=== PATIENT | female | born 1940 | race Caucasian/White ===

== ENCOUNTER 2024-04-22 12:20 | Emergency (ER) | payer MEDICARE, SELFPAY ==
[2024-04-22] VITALS (45 sets, daily range): BP systolic 101–161; BP diastolic 56–105; PULSE 51–67; RESP 18–22; TEMP 36.3; O2SAT 90–98; BMI 32.0
--- OUTSIDE RECORDS SUMMARY | 2024-04-22 12:22 | XMS_ITS | Clinical Summary ---
Author Organization [employer] [facility] Address [place], [place] [address] Care Team Providers Care Rock Crushing Machine Operator Name Role Phone Cuco Sandoval MD Unavailable [phone] Curtis Liu Unavailable Unavailable Evy Renteria MD Unavailable [phone] Cindy Henry DO Primary Care Provider Allergies No known active allergies Medications acetaminophen (TYLENOL EXTRA STRGTH) 500 mg tablet Take 1 tablet by mouth every 6 hours if needed. Max acetaminophen dose: 4000mg in 24 hrs. 0 12/04/19 10 Active loratadine (CLARITIN) 10 mg tabletIndications :Other allergic rhinitis Take 1 tablet by mouth once daily. 0 04/11/19 16 Active ibuprofen (ADVIL; MOTRIN) 200 mg tablet Every 6 Hours as needed Active True Metrix Glucose Test Strip stripIndications: Controlled type 2 diabetes mellitus with complication, without long-term current use of insulin (HC) TEST ONE TIME DAILY 100 Each 4 01/30/20 21 Active TRUEplus Lancets 33 gauge miscIndications:C ontrolled type 2 diabetes mellitus with complication, without long-term current use of insulin (HC) TEST ONE TIME DAILY 100 Each 01/30/20 21 Active DULoxetine (CYMBALTA) 60 mg Delayed-release capsule Take 60 mg by mouth. 04/24/20 23 Active medication order composer vitamin d3 0 12/09/19 Active medication order composer vitamin b12 and vitamin d3 0 12/09/19 Active carvediloL (COREG) 12.5 mg tabletIndications :HTN (hypertension) Take 1 Tablet (12.5 mg) by mouth two times daily with meals. 180 Tablet 3 02/05/20 24 Active clopidogreL (PLAVIX) 75 mg tabletIndications :Transient cerebral ischemia, unspecified type Take 1 Tablet (75 mg) by mouth once daily in the morning. 90 Tablet 4 02/05/20 24 Active DULoxetine (CYMBALTA) 30 mg Delayed-release capsuleIndication s:Type 2 diabetes mellitus with diabetic neuropathy, without long-term current use of insulin (HC) Take 1 Capsule (30 mg) by mouth once daily. 90 Capsule 4 02/05/20 24 Active fluticasone (50 mcg per actuation) nasal solution (FLONASE)Indicati ons:Seasonal allergic rhinitis, unspecified trigger Inhale 2 Sprays in both nostrils once daily. 48 g 3 02/05/20 24 Active lisinopriL (PRINIVIL; ZESTRIL) 2.5 mg tabletIndications :HTN (hypertension),Ty pe 2 diabetes mellitus with diabetic neuropathy, without long-term current use of insulin (HC) Take 1 Tablet (2.5 mg) by mouth once daily. 90 Tablet 4 02/05/20 24 Active rosuvastatin (Crestor) 10 mg tabletIndications :Mixed hyperlipidemia Take 1 Tablet (10 mg) by mouth at bedtime. 90 Tablet 4 02/05/20 24 Active buPROPion (WELLBUTRIN SR) 150 mg Sustained-Release tabletIndications :Depression, major, single episode, mild (HC),Anxiety Take 1 Tablet (150 mg) by mouth two times daily. 180 Tablet 03/30/19 25 Active Walker - 4 wheelsIndications :Orthostatic hypotension,Loss of balance,Diabetic mononeuropathy associated with diabetes mellitus due to underlying condition (HC) For home use. Length of need: 99 seated walker. 1 Each 03/30/19 25 Active buPROPion 75 mg HCl tabletIndications :Depression, major, single episode, mild (HC) Take 1 Tablet (75 mg) by mouth two times daily. Based on updated ISMP guidelines, DO NOT crush or chew. 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 04/13/2021 Diabetic ulcer of toe of lef t foot associated with type 2 diabetes mellitus, limited to breakdown of skin 02/08/2018 Toe amputation status, left 02/08/2018 Onychomycosis 11/24/2017 Controlled type 2 diabetes m ellitus with complication, without long-term current use of insulin 11/20/2017 Onychomycosis 10/01/2016 Atherosclerosis of nulato artery of lower extrem ity 08/16/2016 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 Overview (01/25/2016): Right Severe obesity (BMI 35.0-39.9) with comorbidity 01/15/2016 Allergic rhinitis due to allergen 09/11/2014 TIA (transient ischemic attack) 08/21/2012 Headache(784.0) 08/21/2012 Speech abnormality 08/21/2012 Loss of balance 08/21/2012 ACP (advance care planning) 08/21/2012 Overview (08/21/2012): Patient has identified Health Care Agent(s): Add Health Care Agents: Health Care Agent(s): Primary Health Care Agent: Relationship: Phone: Secondary Health Care Agent: Relationship: Phone: Conservator: Relationship: Phone: Guardian: Relationship: Phone: Patient has Advance Care Plan Documents (Health Care Directive, POLST): Advance Care Plan Documents: Patient has identified Specific Treatment Preferences: Yes Specific Treatment Preferences: a.) Code Status: CPR/Attempt Resuscitation Osteopenia 08/20/2012 Orthostatic hypotension 01/28/2011 Paroxysmal supraventricular tachycardia 01/29/20 11 Overview (02/12/2011): S/P EPS with AVNRT ablation with Dr Swenson 02/12/2011 B12 deficiency 01/15/2011 Fall 01/11/2011 Syncope 01/11/2011 Hypotension 01/11/2011 Bradycardia 01/11/2011 HTN (hypertension) 04/24/2010 Mixed hyperlipidemia 04/24/2010 Diabetic ulcer of right midf oot associated with type 2 diabetes mellitus, with fat layer exposed Resolved Problems Problem Noted Date Diagnosed Date Resolved Date Osteomyelitis of toe of left foot 02/08/2018 12/08/2022 DM neuropathy, type II diabetes mellitus 04/24/2010 11/20/2017 Gallstone pancreatitis 04/08/201006/24 Chronic osteomyelitis of right foot 12/08/2022 Encounters Date Type Department Care Team Description 04/22/2024 Nurse Triage [facility] [address] [place] [address] Cindy Henry DO Dizziness 04/18/2024 Telephone [facility] [address] [place] [address] Cindy Henry DO Questions (medication questions) 03/30/2024 11:30 AM BENEFITS ASSISTANT Office Visit [address] [address] Cindy Henry DO Depression 03/30/2024 Travel 03/23/2024 3:00 PM BENEFITS ASSISTANT Office Visit [facility] [address] [place] [address] Chencho Quinones DPM Questions; Consult (Right [address] [place], [place] [id number]) 03/23/2024 Travel 02/19/2024 Telephone [facility] [address] [place] [address] Cindy Henry DO Questions (Result) 02/09/[address] [address] Cindy Henry DO Results 02/09/2024 Orders Only [address] [address] Cindy Henry DO <No scans attached> 02/05/2024 11:05 AM BENEFITS ASSISTANT Office Visit [facility] [address] [place] [address] Cindy Henry DO Medicare ANNUAL (subsequent) Visit (83 yr/); Toe Pain/problem (right foot toe- hammer toe- second toe ); Shortness Of Breath (has been going on about a month); Sinus Problem (allergies /); Urinary Problem (incontinence); Rectal Problem (occasionally/); Immunization/Injectio n (COVID-19 vaccine) 02/05/2024 Travel 01/27/2024 Refill [facility] [address] [place], [place] [id number] Cindy Henry DO Refill Request (Carvedilol) from Last 3 Months Immunizations Name Administration Dates Next Due COVID-19 VACCINE SPIKEVAX (M ODERNA 50MCG/0.5ML) 12YO+ PFS 02/05/2024 COVID-19 vaccine (BosidengBio NTech 30mcg/0.3mL) PF, MDV 12/19/2020,07/16/2020,06/25/2020 Influenza RIV4 (Age 18+ Year s) PRESERV FREE 01/19/2019 Influenza Virus, Unspecified 12/23/2011, 12/05/2010,01/04/2010,12/22,01/10/2003,01/11/2001 Influenza, High-dose Inactivated 017,01/02/2016,12/17/2015,12/20 Influenza, High-dose Quadriv alent Inactivated 12/09/2021 Influenza, IIV3 (Age 6-35 mos) 12/05/2010,2008 Influenza, IIV3 (Age >=3 years) 12/23/19 12,12/05/2010,01/04/2010,12/22,01/10/2003,01/11/2001 Influenza, Inactivated AIIV4 (Age 65+ Years) Preserv Free 12/08/2022,12/19/2020,11/28/2019 Influenza, Inactivated IIV3 (Age 65+ Years) Preserv Free 02/05/2024 Pneumococcal Poly,23-Valent (Pneumovax) 01/13/2011,06/28/2010,06/15/2003 Pneumococcal conj 13-Valent (Prevnar 13) 09/11/2014 RSV, Recombinant ADJ Reconst ituted (Arexvy 120MCG/0.5mL) 04/30/2023 Td (Age >=7 Years) 05/30/2002,08/14/1990 Tdap 08/20/2012 Zoster (Zostavax-ZVL, live) 04/12/2012 Family History Medical History Relation Name Comments Heart Disease Brother Heart Disease Father Cancer-breast Paternal Aunt Cancer-breast Sister Relation Name Status Comments Brother Father Mother Paternal Aunt Sister Social History Tobacco Use Types Packs/Day Years Used Date Smoking Tobacco: Former Cigarettes 1 30 1 04/04/1973 - 02/03/2004 Smokeless Tobacco: Never Tobacco Cessation:Counseling Given: Not Answered Alcohol Use Standard Drinks/Week Comments Not Currently 1.7 (1 standard drink = 0.6 oz p ure alcohol) 2 drinks a week PHQ-2 Answer Date Recorded PHQ-2 TOTAL SCORE 4 03/30/2024 Social Connections Answer Date Recorded Do you often feel lonely or isolated from those around you? 4 03/30/2024 Financial Resource Strain Answer Date R ecorded Difficulty of Paying Living Expenses 3 03/30/2024 Difficulty of Paying Living Expenses Not on file 03/30/2024 Food Insecurity Answer Date Recorded Do you worry your food will run out before you are able to buy more? 1 03/30/2024 Transportation Needs Answer Date Record ed Does lack of transportation keep you from medica l appointments? 1 03/30/2024 Does lack of transportation keep you from work, meetings or getting things that you need? 1 03/30/2024 Housing Stability Answer Date Recorded What is your housing situation today? 1 03/30/2024 Utilities Answer Date Recorded Do you have trouble paying f or utilities (for example, heat, electricity, water, phone)? 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 Not on file Not on file Not on file Obstetrics History Para Term AB IAB SAB Ectopic Multiple Livin g Live Births 2 2 2 2 Date Outcome GA Total Labor Labor/2nd/3rd Weight Sex Type Anes PTL Mine A1 A5 Name Clin Term Term Last Filed Vital Signs Vital Sign Reading Time Taken Comments Blood Pressure 122/66 03/30/2024 11:30 AM BENEFITS ASSISTANT Pulse 63 03/30/2024 11:30 AM BENEFITS ASSISTANT Temperature 36.5 C (97.7 F) 02/05/2024 11:24 AM BENEFITS ASSISTANT Respiratory Rate 16 06/12/2021 7:42 AM CDT Oxygen Saturation 97% 03/30/2024 11:30 AM BENEFITS ASSISTANT Inhaled Oxygen Concentration - - Weight 80.7 kg (178 lb) 03/30/2024 11:30 AM BENEFITS ASSISTANT Height 158.3 cm (5' 2.32) 02/05/2024 11:[address] Body Mass Index 32.22 02/05/2024 11:24 AM BENEFITS ASSISTANT Plan of Treatment Upcoming Encounters Date Type Department Care Team (Late st Contact Info) Description 05/04/2024 1:00 PM BENEFITS ASSISTANT Office Visit [facility] [address] [place] [address] Cindy Henry DO [address] [place] [address] Health Maintenance Due Date Last Done Comments Zoster (shingles) series for age 50+ (2 of 3) 06/07/2012 04/12/2012 Tetanus booster 08/20/2022 08/20/2012, 05/14, 08/14/1990 BMI (ht and wt on same day) for age 18+ 02/04/2025 02/05/2024, 04/10/2021, 11/02/2020, Additional history exists Medicare Wellness for age 65+ 02/05/2025, 12/08/2022, 04/10/2021, Additional history exists Depression screening for age 12+ 03/30/2025 03/30/2024, 03/23/2024, 02/09/2024, Additional history exists Tdap Completed 08/20/2012 DEXA/DXA scan for age 65+ Completed 2012, 07/12/2010, 06/28/2010 (Postponed) Pneumococcal series for age 50+ Completed 09/11/2014, 01/13/2011, 06/28/2010, Additional history exists RSV vaccine for adults or Completed 04/30/2023 COVID-19 vaccine series Completed 11, 04/30/2023, 12/09/2021, Additional history exists Influenza for age 65+ Completed 02/05/2024 , 12/08/2022, 12/09/2021, Additional history exists Procedures Procedure Name Priority Date/Time Associated Diagnosis Comments LIPID PANEL W REFLEX MEASURED LDL Routine 02/05/2024 12:26 PM BENEFITS ASSISTANT HTN (hypertension) Type 2 diabetes mellitus with diabetic neuropathy, without long-term current use of insulin (HC) Mixed hyperlipidemia BASIC METABOLIC PANEL Routine 02/05/2024 12:26 PM BENEFITS ASSISTANT HTN (hypertension) Type 2 diabetes mellitus with diabetic neuropathy, without long-term current use of insulin (HC) URINE ALBUMIN TO CREATININE RATIO, RANDOM Routine 02/05/2024 12:26 PM BENEFITS ASSISTANT Type 2 diabetes mellitus with diabetic neuropathy, without long-term current use of insulin (HC) VITAMIN B12 Routine 02/05/2024 12:26 PM BENEFITS ASSISTANT B12 deficiency URINE CULTURE Routine 02/05/2024 12:26 PM BENEFITS ASSISTANT Urine frequency URINALYSIS MICROSCOPIC Routine 02/05/2024 12:26 PM BENEFITS ASSISTANT Urine frequency URINALYSIS MACROSCOPIC - [facility] ONLY POC DIP ([facility]) Routine 02/05/2024 12:25 PM BENEFITS ASSISTANT Urine frequency HEMOGLOBIN A1C MONITORING (POCT) Routine 02/05/2024 12:25 PM BENEFITS ASSISTANT Type 2 diabetes mellitus with diabetic neuropathy, without long-term current use of insulin (HC) XR DXA BONE DENSITY 2 SITES AXIAL Routine 08/24/2012 2:20 PM CDT Osteopenia from Last 3 Months or Most Recently Relevant to Health Maintenance Results * (ABNORMAL) LIPID PANEL W REFLEX MEASURED LDL (02/05/2024 12:26 PM BENEFITS ASSISTANT) CHOLESTEROL, TOTAL 116 <200 mg/dL [facility] HDL CHOLESTEROL 47(L) > OR = 50 mg/dL [facility] TRIGLYCERIDES 115 <150 mg/dL [facility] LDL-CHOLESTEROL 49 mg/dL (calc) [facility] Comment: Reference range: <100 Desirable range <100 mg/dL for primary prevention; <70 mg/dL for patients with CHD or diabetic patients with > or = 2 CHD risk factors. LDL-C is now calculated using the Katty calculation, which is a validated novel method providing better accuracy than the Friedewald equation in the estimation of LDL-C. Rinku BEACH et al. AHMET. 2013;310(19): 4586-7076 (http://education.Syapse/faq/OUT381) CHOL/HDLC RATIO 2.5 <5.0 (calc) [facility] NON HDL CHOLESTEROL 69 <130 mg/dL (calc) [facility] Comment: For patients with diabetes plus 1 major ASCVD risk factor, treating to a non-HDL-C goal of <100 mg/dL (LDL-C of <70 mg/dL) is considered a therapeutic option. Blood BLOOD SPECIMEN / Unknown 02/05/2024 12:26 PM BENEFITS ASSISTANT 02/05/2024 12:26 PM BENEFITS ASSISTANT Cindy Henry DO CHEMISTRY Final Resul t [facility] [address] [place] [address], [facility] [address] [place] [address] * (ABNORMAL) URINALYSIS MICROSCOPIC (02/05/2024 12:26 PM BENEFITS ASSISTANT) WBC UA > OR = 60(A) < OR = 5 /HPF [facility] RBC UA 3-10(A) < OR = 2 /HPF [facility] SQUAMOUS EPITHELIAL CELLS UA 0-5 < OR = 5 /HPF [facility] BACTERIA UA MANY(A) NONE SEEN /HPF [facility] HYALINE CAST NONE SEEN NONE SEEN /LPF [facility] YEAST UA FEW(A) NONE SEEN /HPF [facility] NOTE UA [facility] Comment: This urine was analyzed for the presence of WBC, RBC, bacteria, casts, and other formed elements. Only those elements seen were reported. Urine URINE SPECIMEN / Unknown 02/05/2024 12:26 PM BENEFITS ASSISTANT 02/05/2024 12:26 PM BENEFITS ASSISTANT Cindy Cano Detert DO URINE Final Resul t [facility] [address] [place] [address], [facility] [address] [place] [address] * (ABNORMAL) URINE CULTURE (02/05/2024 12:26 PM BENEFITS ASSISTANT) CULTURE, URINE, ROUTINE SEE NOTE(A) [facility] Comment: CULTURE, URINE, ROUTINE Micro Number: [id number] Test Status: Final Specimen Source: Urine Specimen Quality: Adequate Result: Greater than 100,000 CFU/mL of Klebsiella pneumoniae K.pneumoniae INT JATIN AMOX/CLAVULANATE S <=2 AMP/SULBACTAM S <=2 CEFAZOLIN NR <=4 2 CEFEPIME S <=0.12 CEFTAZIDIME S <=1 CEFTRIAXONE S <=0.25 CIPROFLOXACIN S <=0.06 GENTAMICIN S <=1 IMIPENEM S <=0.25 LEVOFLOXACIN S <=0.12 MEROPENEM S <=0.25 NITROFURANTOIN S <=16 PIP/TAZOBACTAM S <=4 TRIMETHOPRIM/SULFA S <=20 S = Susceptible I = Intermediate R = Resistant NS = Not susceptible SDD = Susceptible Dose Dependent * = Not Tested NR = Not Reported NN = See Therapy Comments THERAPY COMMENTS Note 1: For infections other than uncomplicated UTI caused by E. coli, K. pneumoniae or P. mirabilis: Cefazolin is resistant if JATIN > or = 8 mcg/mL. (Distinguishing susceptible versus intermediate for isolates with JATIN < or = 4 mcg/mL requires additional testing.) Note 2: For uncomplicated UTI caused by E. coli, K. pneumoniae or P. mirabilis: Cefazolin is susceptible if JATIN <32 mcg/mL and predicts susceptible to the oral agents cefaclor, cefdinir, cefpodoxime, cefprozil, cefuroxime, cephalexin and loracarbef. Urine URINE SPECIMEN / Unknown 02/05/2024 12:26 PM BENEFITS ASSISTANT 02/05/2024 12:26 PM BENEFITS ASSISTANT Cindy Henry DO MICROBIOLOGY Final Resul t Performing Organization Address [facility] Co de Phone Number [facility] [id number] [place] [address], [employer] [address] * (ABNORMAL) URINE ALBUMIN TO CREATININE RATIO, RANDOM (02/05/2024 12:26 PM BENEFITS ASSISTANT) CREATININE, RANDOM URINE 127 20 - 275 mg/dL [facility] ALBUMIN, URINE 13.0 See Note: mg/dL [facility] Comment: Reference Range: Reference Range Not established ALBUMIN/CREATININE RATIO, RANDOM URINE 102(H) <30 mg/g creat [facility] Comment: The ADA defines abnormalities in albumin excretion as follows: Albuminuria Category Result (mg/g creatinine) Normal to Mildly increased <30 Moderately increased 30-299 Severely increased > OR = 300 The ADA recommends that at least two of three specimens collected within a 3-6 month period be abnormal before considering a patient to be within a diagnostic category. Urine URINE SPECIMEN / Unknown 02/05/2024 12:26 PM BENEFITS ASSISTANT 02/05/2024 12:26 PM BENEFITS ASSISTANT Cindy Cano Detert DO URINE Final Resul t Performing Organization Address [facility]/ZIP Co de Phone Number [facility] [address] [address], [facility] [[email or web address]] [facility] [address] [place] [address] * VITAMIN B12 (02/05/2024 12:26 PM BENEFITS ASSISTANT) [facility] VITAMIN B12 331 200 - 1,100 pg/mL [facility] Comment: Please Note: Although the reference range for vitamin B12 is 200-1100 pg/mL, it has been reported that between 5 and 10% of patients with values between 200 and 400 pg/mL may experience neuropsychiatric and hematologic abnormalities due to occult B12 deficiency; less than 1% of patients with values above 400 pg/mL will have symptoms. Blood BLOOD SPECIMEN / Unknown 02/05/2024 12:26 PM BENEFITS ASSISTANT 02/05/2024 12:26 PM BENEFITS ASSISTANT us Cindy Henry DO CHEMISTRY Final Resul t [facility] [address] [place] [phone], [facility] [[email or web address]] [facility] [address] [place] [phone] * (ABNORMAL) BASIC METABOLIC PANEL (02/05/2024 12:26 PM BENEFITS ASSISTANT) [facility] GLUCOSE 96 65 - 99 mg/dL [facility] Comment: Fasting reference interval UREA NITROGEN (BUN) 23 7 - 25 mg/dL [facility] CREATININE 0.96(H) 0.60 - 0.95 mg/dL [facility] EGFR 59(L) > OR = 60 mL/min/1.7 3m2 [facility] BUN/CREATININE RATIO 24(H) 6 - 22 (calc) [facility] SODIUM 142 135 - 146 mmol/L [facility] POTASSIUM 4.2 3.5 - 5.3 mmol/L [facility] CHLORIDE 107 98 - 110 mmol/L [facility] CARBON DIOXIDE 25 20 - 32 mmol/L [facility] ELECTROLYTE BALANCE 10 7 - 17 mmol/L (calc) [facility] CALCIUM 9.1 8.6 - 10.4 mg/dL [facility] Blood BLOOD SPECIMEN / Unknown 02/05/2024 12:26 PM BENEFITS ASSISTANT 02/05/2024 12:26 PM BENEFITS ASSISTANT Cindy Henry DO CHEMISTRY Final Resul t Performing Organization Address City/[facility]/ZIP Co de Phone Number [facility] [address] [place] [address], [place] [phone] [facility] [address] [place] [address] * (ABNORMAL) POCT Urinalysis Dipstick Only (02/05/2024 12:25 PM BENEFITS ASSISTANT) PH 5.5 5.0 - 8.0 [facility] SPECIFIC GRAVITY 1.025 1.001 - 1.035 [facility] GLUCOSE NEGATIVE NEGATIVE [facility] BILIRUBIN NEGATIVE NEGATIVE [facility] KETONES NEGATIVE NEGATIVE [facility] OCCULT BLOOD TRACE(A) NEGATIVE [facility] PROTEIN 1+(A) NEGATIVE [facility] NITRITE POSITIVE(A) NEGATIVE [facility] LEUKOCYTE ESTERASE 2+(A) NEGATIVE [facility] Urine URINE SPECIMEN / Unknown 02/05/2024 12:25 PM BENEFITS ASSISTANT 02/05/2024 12:25 PM BENEFITS ASSISTANT us Cindy Henry DO URINE Final Resul t [facility] [address] [place] [address], [place] [phone] [facility] [address] [place] [address] * (ABNORMAL) HEMOGLOBIN A1C MONITORING POCT (02/05/2024 12:25 PM BENEFITS ASSISTANT) POC HEMOGLOBIN A1C 6.4(H) <6.0 % OF TOTAL HGB [facility] Comment: Any point of care results exhibiting inconsistency with the patient's clinical status should be repeated using a different testing method. Blood BLOOD SPECIMEN / Unknown 02/05/2024 12:25 PM BENEFITS ASSISTANT 02/05/2024 12:25 PM BENEFITS ASSISTANT Cindy Cano Detert DO CHEMISTRY Final Resul t [facility] [address] [place] [address], [facility] [address] [place] [address] * XR DXA BONE DENSITY 2 SITES (08/24/2012 2:20 PM CDT) Anatomical Region Laterality Modality Spine, HIPS, HIPL, HIPR Other Narrative 08/25/2012 11:58 AM CDT The result for this exam is either scanned and attached to this order or are included in the ordering provider's NOTES from the patient's Office Visit or Surgical procedure from this date. Procedure Note Kesha Friend - 08/25/2012 The result for this exam is either scanned and attached to this order orare included in the ordering provider's NOTES from the patient's OfficeVisit or Surgical procedure from this date. Cindy Grimest DO DEXA Final Resul t from Last 3 Months or Most Recently Relevant to Health Maintenance Insurance [facility] AET[employer] MR Advance Directives * Full Code (Latest Code Status on File) Date Activated Date Inactivated Comments 06/11/2021 2:24 PM 06/12/2021 12:12 PM Question Answer Comments Code Status Discussion: Reviewed Preferences * Full Code Date Activated Date Inactivated Comments 05/30/2021 11:45 AM 05/30/2021 5:25 PM Question Answer Comments Code Status Discussion: Reviewed Preferences * Full Code Date Activated Date Inactivated Comments 11/05/2020 7:00 AM 11/05/2020 1:59 PM Question Answer Comments Code Status Discussion: Discussed * Full Code Date Activated Date Inactivated Comments 08/21/2012 3:49 PM 08/22/2012 5:41 PM * Full Code Date Activated Date Inactivated Comments 02/11/2011 6:02 AM 02/12/2011 2:24 PM Care Teams Rock Crushing Machine Operator Relationship Specialty Start Date End Date Cindy Henry DO [facility] [place] [address] PCP - General Family Practice 12/08/22 Cuco Sandoval MD [address] [place] [address] Oncology Hematology and Oncology 08/20/12 Curtis Liu Ophthalmology [place] [employer] 08/20/12 Evy Renteria MD Ophthalmology Ophthalmology Surgery 08/20/12
--- NOTE | 2024-04-22 13:49 | CRLHL7_ITS ---
For Patients: As a result of the Century Cures Act, medical imaging exams and procedure reports are released immediately into your electronic medical record. You may view this report before your referring provider. If you have questions, please contact your health care provider. INDICATION: Ataxia. TECHNIQUE: Multisequence multiplanar MRI of the brain without the use of intravenous contrast. COMPARISON: Correlated with CT head dated 04/10/2020. FINDINGS: Punctate hyperintense foci on diffusion-weighted imaging in the right occipital lobe (series 5, image 34) and left frontal lobe (series 5 image 45) without convincing correlate on the ADC map. Scattered as well as confluent T2 prolongation within white matter both cerebral hemispheres. Focus of abnormal susceptibility artifact. Moderate diffuse parenchymal volume loss with ex vacuo prominence of the supratentorial ventricles. Flow voids of the larger intracranial arteries are preserved. Normal calvarial bone marrow signal intensity. Evidence prior cataract surgery. The paranasal sinuses and mastoid air cells are predominantly clear. IMPRESSION: 1. Two punctate hyperintense foci on diffusion-weighted imaging in the right occipital lobe and left frontal lobe consistent with subacute infarcts. Distribution raises concern for embolic etiology. 2. No evidence of recent or remote intracranial hemorrhage. 3. Moderate diffuse parenchymal volume loss and chronic small vessel ischemic changes. Dictated by Bobby Sow MD @ 04/22/2024 4:26:01 PM (Electronically Signed)
--- NOTE | 2024-04-22 13:50 | ED_ITS ---
HPI - Dizziness General Chief Complaint: Dizziness/Vertigo Stated Complaint: dizzy spells, fell last week, hit head Time Seen by Provider: 04/22/24 12:55 History of Present Illness HPI Narrative: This 83-year-old female comes in with family members and reports feeling off balance over the past couple weeks. She fell about a week ago and hit her head and states that she had a good lump on her head. She does not report any headache. She states that she does not have any feelings of lightheadedness or vertigo symptoms. She does not report any weakness. She did start a new medication recently, bupropion. Related Data Home Medications ?Medication ?Instructions ?Recorded ?Confirmed bupropion HCl 150 mg tablet,12 hr mg PO 04/22/24 sustained-release clopidogrel .ROUTE 04/22/24 lisinopril .ROUTE 04/22/24 Allergies Allergy/AdvReac Type Severity Reaction Status Date / Time No Known Drug Allergies Allergy Verified 04/22/24 12:46 Review of Systems Status of ROS: Reports: 10 or more systems reviewed and unremarkable except as noted in History and below Narrative: Constitutional: No fevers, no weight gain or loss. Eyes: No discharge. No vision changes. HENT: No congestion, no sore throat, no ear pain. Cardiovascular: No chest pain, no palpitations. Respiratory: No shortness of breath, no wheezes, no cough. Gastrointestinal: No abdominal pain, no vomiting, no diarrhea. Genitourinary: No dysuria, no hematuria. Musculoskeletal: Normal range of motion. Skin: No rashes, no pruritis. Neurological: No weakness, sensory change, speech change. She is off balance and has fallen. Endo/Heme/Allergies: No bruising or bleeding. No polydipsia. Pysch: no suicidality, no anxiety, no insomnia. All other systems reviewed and are negative. PFSH PFSH Social History Smoking Status: Former smoker What tobacco products do you use: cigarettes Smoking quit date/years: >15 years ago Do you use any of these nicotine containing products: None Second hand tobacco smoke exposure: No How often do you have a drink containing alcohol: 4 or more times a week How many standard drinks containing alcohol do you have on a typical day: 1 or 2 How often do you have six or more drinks on one occasion: Never AUDIT-C Alcohol total score: 4 Non-prescribed substance use: denies use service: No Exam Narrative: Exam Narrative: Constitutional: Well-developed, well-nourished, no acute distress. HEENT: Normocephalic, atraumatic. Neck: Normal range of motion. Nontender. Supple. Heart: Regular. No murmurs. Normal rate. Intact distal pulses. Lungs: Clear to auscultation. No chest discomfort. No wheezes, rhonchi, or rales. Abdomen: Normal bowel sounds. Nontender. No rebound tenderness. Genitalia: Deferred. Back: No midline tenderness. Normal range of motion. Extremities: Normal range of motion. No injury. Skin: Intact. No rash. Warm. No erythema or pallor. Neurologic: No altered sensation. No weakness. Alert and oriented. No facial asymmetry. Tongue is midline. [id number] is normal. No pronator drift. Medical Doctor Nuclear Medicine strength is equal bilaterally. Able to raise each leg from the bed. Psychiatric: No suicidality. No anxiety or depression. No insomnia. Nursing notes and vitals signs are reviewed. Const: Vital Signs, click to edit/add: Vital Signs - 24 hr 04/22/24 12:49 04/22/24 13:15 04/22/24 13:30 Temperature 97.4 F L Pulse Rate Pulse Rate [Pulse Oximeter] 67 55 L 58 L Respiratory Rate 18 22 22 Blood Pressure Blood Pressure [Le ft Upper Arm] 112/78 101/67 Pulse Oximetry 98 93 94 Oxygen Delivery Me thod Room Air Room Air Room Air 04/22/24 13:34 04/22/24 13:45 04/22/24 13:47 Temperature Pulse Rate 54 L 55 L 56 L Pulse Rate [Pulse Oximeter] Respiratory Rate 22 Blood Pressure 119/79 Blood Pressure [Le ft Upper Arm] Pulse Oximetry 94 96 95 Oxygen Delivery Me thod Room Air 04/22/24 13:47 04/22/24 13:52 04/22/24 13:52 Temperature Pulse Rate 56 L 54 L 54 L Pulse Rate [Pulse Oximeter] Respiratory Rate Blood Pressure 119/79 125/56 L 125/56 L Blood Pressure [Le ft Upper Arm] Pulse Oximetry 95 95 95 Oxygen Delivery Me thod 04/22/24 14:04 04/22/24 14:05 04/22/24 14:07 Temperature Pulse Rate 56 L 57 L 55 L Pulse Rate [Pulse Oximeter] Respiratory Rate Blood Pressure 128/65 123/63 Blood Pressure [Le ft Upper Arm] Pulse Oximetry 93 95 94 Oxygen Delivery Me thod 04/22/24 14:11 04/22/24 14:15 04/22/24 14:16 Temperature Pulse Rate 56 L 56 L 55 L Pulse Rate [Pulse Oximeter] Respiratory Rate Blood Pressure 133/62 137/62 Blood Pressure [Le ft Upper Arm] Pulse Oximetry 91 91 92 Oxygen Delivery Me thod 04/22/24 14:21 04/22/24 14:21 04/22/24 14:26 Temperature Pulse Rate 51 L 51 L 56 L Pulse Rate [Pulse Oximeter] Respiratory Rate Blood Pressure 144/66 H 144/66 H 142/63 H Blood Pressure [Le ft Upper Arm] Pulse Oximetry 92 92 90 Oxygen Delivery Me thod 04/22/24 14:30 04/22/24 14:32 04/22/24 14:32 Temperature Pulse Rate 56 L 56 L 56 L Pulse Rate [Pulse Oximeter] Respiratory Rate Blood Pressure 152/73 H 152/73 H Blood Pressure [Le ft Upper Arm] Pulse Oximetry 92 93 93 Oxygen Delivery Me thod Course Vital Signs Vital signs: Initial Vital Signs Temperature 97.4 F L 04/22/24 12:49 Temperature Source Temporal Artery Scan 04/22/24 12:49 Pulse Rate 67 04/22/24 12:49 Respiratory Rate 18 04/22/24 12:49 Pulse Oximetry 98 04/22/24 12:49 Oxygen Delivery Method Room Air 04/22/24 12:49 Vital Signs Temperature 97.4 F L 04/22/24 12:49 Pulse Rate 67 04/22/24 12:49 Respiratory Rate 18 04/22/24 12:49 Pulse Oximetry 98 04/22/24 12:49 Oxygen Delivery Method Room Air 04/22/24 12:49 Temperature 97.4 F L 04/22/24 12:49 Pulse Rate 56 L 04/22/24 14:32 Respiratory Rate 22 04/22/24 13:47 Blood Pressure 152/73 H 04/22/24 14:32 Pulse Oximetry 93 04/22/24 14:32 Oxygen Delivery Method Room Air 04/22/24 13:47 MDM - Dizziness MDM Narrative Medical decision making narrative: This patient has worsening ataxia over the past couple weeks and did fall about a week ago. Her neurologic exam is normal but when she is up to ambulate she is unsteady. I did obtain labs which returned with normal results. An MRI of the head is also obtained and shows 2 punctate lesions that may represent a subacute or chronic small clot. This may account for her symptoms. Otherwise imaging and labs are reassuring. She does have 2 different walkers that she can use. She states that she does not typically use these at home because her house is small and she has thing she can hold onto. However she did fall at home last week. I did recommend that she uses a walker for ambulating because her ataxia is not likely to improve. Lab Data Labs: Lab Results 04/22/24 Range/Units 13:15 WBC 6.08 (4.50-11.00) K/uL RBC 5.07 (4.00-5.20) m/uL Hgb 14.6 (12.0-16.0) gm/dL Hct 45.1 (33.0-51.0) % MCV 89 (80-100) fL MCH 29 (26-34) pg MCHC 32 (32-36) gm/dL RDW Coeff of Leonardo 13.2 (11.5-15.5) % Plt Count 176 (140-440) K/uL Neut % (Auto) 68.6 (42.0-72.0) % Lymph % (Auto) 20.9 (20-44) % Angelina % (Auto) 8.4 (0.0-11.0) % Eos % (Auto) 1.6 (0.0-7.0) % Baso % (Auto) 0.3 (0.0-3.0) % Neut # (Auto) 4.17 (1.7-7.0) K/uL Lymph # (Auto) 1.27 (0.90-2.90) K/uL Angelina # (Auto) 0.50 (0.00-0.90) K/UL Eos # (Auto) 0.10 (0.00-0.50) K/uL Baso # (Auto) 0.02 (0.00-0.30) K/uL Abs Immat Gran (auto) 0.01 (0.00-0.30) K/uL Imm/Tot Granulo (auto) 0.2 % Sodium 138 (135-149) mmol/L Potassium 3.9 (3.6-5.1) mmol/L Chloride 107 (96-114) mmol/L Carbon Dioxide 21 (20-32) mmol/L Anion Gap 10 (7-15) mEq/L BUN 22 (7-30) mg/dL Creatinine 0.9 (0.5-1.5) mg/dL Estimated Creat Clear 34.30 Estimated GFR 64 ml/min Glucose 137 H (60-115) mg/dL Calcium 8.6 (8.4-10.6) mg/dL Imaging Data MRI - head: Radiologist's impression: 1. Two punctate hyperintense foci on diffusion-weighted imaging in the right occipital lobe and left frontal lobe consistent with subacute infarcts. Distribution raises concern for embolic etiology. 2. No evidence of recent or remote intracranial hemorrhage. 3. Moderate diffuse parenchymal volume loss and chronic small vessel ischemic changes. Discharge Plan Discharge Clinical Impression: Ataxia Patient Disposition: Home w/ Parent or Adult Condition: Stable Additional Instructions: Continue current plans. Use a walker when ambulating. Follow up with MD for ongoing management. Return if worsening. Prescriptions: No Action bupropion HCl 150 mg tablet sustained-release 12 hr PO clopidogrel .ROUTE lisinopril .ROUTE Follow Up/Referrals: Cindy Henry DO [Primary Care Provider] - Stand Alone Forms: [employer] Info Instructions
--- OUTSIDE RECORDS SUMMARY | 2024-04-22 14:03 | XMS_ITS | Clinical Summary ---
Author Organization [employer] [facility] Address [place], [place] [address] Care Team Providers Care Regulatory Compliance Officer Name Role Phone Cuco Sandoval MD Unavailable [phone] Curtis Liu Unavailable Unavailable Evy Renteria MD Unavailable [phone] Cindy Henry DO Primary Care Provider Allergies [...] of insulin 11/20/2017 Onychomycosis 10/01/2016 Atherosclerosis of [place] artery of lower extrem ity 08/16/2016 Innominate [...] Department Care Team Description 04/22/2024 Nurse Triage [facility] [address] [facility] [address] Cindy Henry DO Dizziness 04/18/2024 Telephone [facility] [address] [place] [address] Cindy Henry DO Questions (medication questions) 03/30/2024 11:30 AM LAPPER Office Visit [address] [address] Cindy Henyr DO Depression 03/30/2024 Travel 03/23/2024 3:00 PM LAPPER Office Visit [facility] [address] [place] [address] Chencho Quinones DPM Questions; Consult (Right [address] [place], [place] [address]ertoe) 03/23/2024 Travel 02/19/2024 Telephone [facility] [address] [place] [address] Cindy Henry DO Questions (Result) 02/09/[address] [address] Cindy Henry DO Results 02/09/2024 Orders Only [address] [address] Cindy Henry DO <No scans attached> 02/05/2024 11:05 AM LAPPER Office Visit [facility] [address] [place] [address] Cindy Henyr DO Medicare ANNUAL (subsequent) Visit (83 yr/); Toe Pain/problem (right foot toe- hammer toe- second toe ); Shortness Of Breath (has been going on about a month); Sinus Problem (allergies /); Urinary Problem (incontinence); Rectal Problem (occasionally/); Immunization/Injectio n (COVID-19 vaccine) 02/05/2024 Travel 01/27/2024 Refill [facility] [address] [place], [place] [id number] Cindy Henry DO Refill Request (Carvedilol) from Last 3 Months Immunizations Name Administration Dates Next Due COVID-19 VACCINE SPIKEVAX (M ODERNA 50MCG/0.5ML) 12YO+ PFS 02/05/2024 COVID-19 vaccine (RAMp SportsBio NTech 30mcg/0.3mL) PF, MDV 12/19/2020,07/16/2020,06/25/2020 Influenza RIV4 [...] on file Legal Sex Female 7:59 AM LAPPER Gender Identity Not on file Sexual Orientation [...] Comments Blood Pressure 122/66 03/30/2024 11:30 AM LAPPER Pulse 63 03/30/2024 11:30 AM LAPPER Temperature 36.5 C (97.7 F) 02/05/2024 11:24 AM LAPPER Respiratory Rate 16 06/12/2021 7:42 AM CDT Oxygen Saturation 97% 03/30/2024 11:30 AM LAPPER Inhaled Oxygen Concentration - - Weight 80.7 kg (178 lb) 03/30/2024 11:30 AM LAPPER Height 158.3 cm (5' 2.32) 02/05/2024 11:[address] Body Mass Index 32.22 02/05/2024 11:24 AM LAPPER Plan of Treatment Upcoming Encounters Date Type Department Care Team (Late st Contact Info) Description 05/04/2024 1:00 PM LAPPER Office Visit [facility] [address] [place] [address] Cindy Henry DO [address] [place] [address] Health Maintenance Due Date Last Done Comments [...] REFLEX MEASURED LDL Routine 02/05/2024 12:26 PM LAPPER HTN (hypertension) Type 2 diabetes mellitus with diabetic neuropathy, without long-term current use of insulin (HC) Mixed hyperlipidemia BASIC METABOLIC PANEL Routine 02/05/2024 12:26 PM LAPPER HTN (hypertension) Type 2 diabetes mellitus with diabetic neuropathy, without long-term current use of insulin (HC) URINE ALBUMIN TO CREATININE RATIO, RANDOM Routine 02/05/2024 12:26 PM LAPPER Type 2 diabetes mellitus with diabetic neuropathy, without long-term current use of insulin (HC) VITAMIN B12 Routine 02/05/2024 12:26 PM LAPPER B12 deficiency URINE CULTURE Routine 02/05/2024 12:26 PM LAPPER Urine frequency URINALYSIS MICROSCOPIC Routine 02/05/2024 12:26 PM LAPPER Urine frequency URINALYSIS MACROSCOPIC - [facility] ONLY POC DIP ([facility]) Routine 02/05/2024 12:25 PM LAPPER Urine frequency HEMOGLOBIN A1C MONITORING (POCT) Routine 02/05/2024 12:25 PM LAPPER Type 2 diabetes mellitus with diabetic neuropathy, without long-term current use of insulin (HC) XR DXA BONE DENSITY 2 SITES AXIAL Routine 08/24/2012 2:20 PM CDT Osteopenia from Last 3 Months or Most Recently Relevant to Health Maintenance Results * (ABNORMAL) LIPID PANEL W REFLEX MEASURED LDL (02/05/2024 12:26 PM LAPPER) CHOLESTEROL, TOTAL 116 <200 mg/dL [facility] [...] LDL-C. Rinku BEACH et al. AHMET. 2013;310(19): 9019-3788 (http://education.Jambo/faq/KBU496) CHOL/HDLC RATIO 2.5 <5.0 (calc) [facility] NON HDL CHOLESTEROL 69 <130 mg/dL (calc) [facility] Comment: For patients with diabetes plus 1 major ASCVD risk factor, treating to a non-HDL-C goal of <100 mg/dL (LDL-C of <70 mg/dL) is considered a therapeutic option. Blood BLOOD SPECIMEN / Unknown 02/05/2024 12:26 PM LAPPER 02/05/2024 12:26 PM LAPPER Cindy Henry DO CHEMISTRY Final Resul t [facility] [address] [place] [address], [facility] [address] [place] [address] * (ABNORMAL) URINALYSIS MICROSCOPIC (02/05/2024 12:26 PM LAPPER) WBC UA > OR = 60(A) < OR = 5 /HPF [facility] RBC UA 3-10(A) < OR = 2 /HPF [facility] SQUAMOUS EPITHELIAL CELLS UA 0-5 < OR = 5 /HPF [facility] BACTERIA UA MANY(A) NONE SEEN /HPF [facility] HYALINE CAST NONE SEEN NONE SEEN /LPF [facility] YEAST UA FEW(A) NONE SEEN /HPF [facility] NOTE UA [facility] Comment: This urine was analyzed for the presence of WBC, RBC, bacteria, casts, and other formed elements. Only those elements seen were reported. Urine URINE SPECIMEN / Unknown 02/05/2024 12:26 PM LAPPER 02/05/2024 12:26 PM LAPPER Cindy Cano Detert DO URINE Final Resul t [facility] [address] [place] [address], [facility] [address] [place] [address] * (ABNORMAL) URINE CULTURE (02/05/2024 12:26 PM LAPPER) CULTURE, URINE, ROUTINE SEE NOTE(A) [facility] Comment: CULTURE, URINE, ROUTINE Micro Number: [id number] Test Status: Final Specimen Source: Urine Specimen [...] URINE SPECIMEN / Unknown 02/05/2024 12:26 PM LAPPER 02/05/2024 12:26 PM LAPPER Cindy Henry DO MICROBIOLOGY Final Resul t Performing Organization Address [facility] Co de Phone Number [facility] [place] [address] [place] [address], [employer] [address] * (ABNORMAL) URINE ALBUMIN TO CREATININE RATIO, RANDOM (02/05/2024 12:26 PM LAPPER) CREATININE, RANDOM URINE 127 20 - 275 mg/dL [facility] ALBUMIN, URINE 13.0 See Note: mg/dL [facility] Comment: Reference Range: Reference Range [...] URINE SPECIMEN / Unknown 02/05/2024 12:26 PM LAPPER 02/05/2024 12:26 PM LAPPER Cindy Cano Detert DO URINE Final Resul t Performing Organization Address [facility]/ZIP Co de Phone Number [facility]) [address] [address], [facility] [address] [place] [address] * VITAMIN B12 (02/05/2024 12:26 PM LAPPER) [facility] VITAMIN B12 331 200 - 1,100 pg/mL [facility] Comment: Please Note: Although the [...] BLOOD SPECIMEN / Unknown 02/05/2024 12:26 PM LAPPER 02/05/2024 12:26 PM LAPPER us Cindy Henry DO CHEMISTRY Final Resul t [facility]) [facility] [address] [place] [address], [facility] [address] [place] [address] * (ABNORMAL) BASIC METABOLIC PANEL (02/05/2024 12:26 PM LAPPER) [facility] GLUCOSE 96 65 - 99 mg/dL [facility] [employer] [facility] Comment: Fasting reference interval UREA NITROGEN (BUN) 23 7 - 25 mg/dL [facility] CREATININE 0.96(H) 0.60 - 0.95 mg/dL [facility] EGFR 59(L) > OR = 60 mL/min/1.7 3m2 [facility] BUN/CREATININE RATIO 24(H) 6 - [...] BLOOD SPECIMEN / Unknown 02/05/2024 12:26 PM LAPPER 02/05/2024 12:26 PM LAPPER Cindy Henry DO CHEMISTRY Final Resul t Performing Organization Address City/[facility]/ZIP Co de Phone Number [employer] [facility] [address] [place] [address], [place] [phone] [facility] [address] [place] [address] * (ABNORMAL) POCT Urinalysis Dipstick Only (02/05/2024 12:25 PM LAPPER) PH 5.5 5.0 - 8.0 [facility] SPECIFIC GRAVITY 1.025 1.001 - 1.035 [facility] GLUCOSE NEGATIVE NEGATIVE [facility] BILIRUBIN NEGATIVE NEGATIVE [facility] KETONES NEGATIVE NEGATIVE [facility] OCCULT BLOOD TRACE(A) NEGATIVE [facility] PROTEIN 1+(A) NEGATIVE [facility] NITRITE POSITIVE(A) NEGATIVE [facility] LEUKOCYTE ESTERASE 2+(A) NEGATIVE [facility] Urine URINE SPECIMEN / Unknown 02/05/2024 12:25 PM LAPPER 02/05/2024 12:25 PM LAPPER us Cindy Henry DO URINE Final Resul t [facility] [address] [place] [address], [place] [phone] [facility] [address] [place] [address] * (ABNORMAL) HEMOGLOBIN A1C MONITORING POCT (02/05/2024 12:25 PM LAPPER) POC HEMOGLOBIN A1C 6.4(H) <6.0 % OF TOTAL HGB [facility] Comment: Any point of care results exhibiting inconsistency with the patient's clinical status should be repeated using a different testing method. Blood BLOOD SPECIMEN / Unknown 02/05/2024 12:25 PM LAPPER 02/05/2024 12:25 PM LAPPER Cindy Cano Detert DO CHEMISTRY Final Resul t [facility] [address] [place] [address], [facility] [address] [place] [address] * XR DXA BONE DENSITY 2 SITES [...] Most Recently Relevant to Health Maintenance Insurance [facility] AETNA MR Advance Directives * Full Code [...] 6:02 AM 02/12/2011 2:24 PM Care Teams Regulatory Compliance Officer Relationship Specialty Start Date End Date Cindy Henry DO [facility] [place] [address] PCP - General Family Practice 12/08/22 Cuco Sandoval MD [address] [place] [address] Oncology Hematology and Oncology 08/20/12 Curtis Liu Ophthalmology Beef Trimmer 08/20/12 Evy Renteria MD Ophthalmology Ophthalmology Surgery 08/20/12
[2024-04-22 14:08] LABS: Basophils Absolute Auto 0.02 K/uL (0.00-0.30); Basophils Percent Auto 0.3 % (0.0-3.0); Eosinophils Percent Auto 1.6 % (0.0-7.0); Hematocrit 45.1 % (33.0-51.0); Hemoglobin* 14.6 gm/dL (12.0-16.0); Immature Granulocytes Abs Auto 0.01 K/uL (0.00-0.30); Immature Granulocytes Pct Auto 0.2 %; Lymphocytes Absolute Auto 1.27 K/uL (0.90-2.90); Lymphocytes Percent Auto 20.9 % (20-44); Mean Corpuscular HGB Conc 32 gm/dL (32-36); Mean Corpuscular Hemoglobin 29 pg (26-34); Mean Corpuscular Volume 89 fL (80-100); Monocytes Percent Auto 8.4 % (0.0-11.0); Neutrophils Absolute Auto 4.17 K/uL (1.7-7.0); Neutrophils Percent Auto 68.6 % (42.0-72.0); Platelet Count* 176 K/uL (140-440); RDW Coefficient of Variation % 13.2 % (11.5-15.5); Red Blood Count 5.07 m/uL (4.00-5.20); White Blood Count* 6.08 K/uL (4.50-11.00)
[2024-04-22 14:13] LABS: Slide Review Reflex No
[2024-04-22 14:55] LABS: Chloride* 107 mmol/L (96-114); Sodium* 138 mmol/L (135-149)
[2024-04-22 14:56] LABS: Potassium* 3.9 mmol/L (3.6-5.1)
[2024-04-22 14:58] LABS: Anion Gap 10 mEq/L (7-15); Blood Urea Nitrogen* 22 mg/dL (7-30); Carbon Dioxide* 21 mmol/L (20-32); Creatinine* 0.9 mg/dL (0.5-1.5); Estimated Glomerular Filt Rate 64 ml/min
[2024-04-22 14:59] LABS: Calcium* 8.6 mg/dL (8.4-10.6); Glucose* 137 mg/dL (60-115)
== END 2024-04-22 17:25 | disposition home or self-care (01) ==
PROVIDERS: Emergency Provider Emergency Medicine Emergency Medical Services; PCP Family Medicine
DX: R27.0 Ataxia, unspecified (principal)
CPT/HCPCS: 36415; 70551; 80048; 85025; 99283; 99284

== ENCOUNTER 2024-07-20 15:58 | Inpatient (IN) | payer MEDICARE, SELFPAY ==
[2024-07-20 16:11] VITALS: BP 139/118; PULSE 74; RESP 16; TEMP 36.4; O2SAT 95; BMI 28.3
--- NOTE | 2024-07-20 16:20 | ED.GENADULT ---
HPI - General Adult General Time Seen by Provider: 16:20 Date Seen: 07/20/24 Chief complaint: Dizziness/Vertigo Stated complaint: infusion nurse concerned about her, dizzy, pale Time Seen by Provider: 07/20/24 16:02 Source: patient, RN notes reviewed and old records reviewed Mode of arrival: ambulatory Limitations: no limitations History of Present Illness HPI narrative: This 83-year-old female is brought in by family for evaluation of dizziness, her complaint is shortness of breath. She notes that her gait imbalance is worsening. She was was seen in our ER on April 22 with dizziness, ataxia, falls. She had an MRI at that visit that showed 2 punctate hyperintense foci in the right occipital lobe and left frontal lobe consistent with subacute infarcts. Distribution raises concern for embolic etiology. No evidence of recent or remote intracranial hemorrhage. Moderate diffuse parenchymal volume loss and chronic small-vessel ischemic changes. She maintains on Plavix, is not on aspirin. She feels that her gait imbalance is worsening, this is not a spinning sensation. Her was at the [facility]. The nurse thought she looked pale, they started talking about her weight loss, she feels that she has maybe lost up to 20 lb or so. They recommended that she be evaluated here in the ER. Her concern is that she is feeling short of breath. She was in urgent care on July 13 after a fall and right rib pain. She had mildly displaced rib fractures of the 8th and 9th rib, possibly nondisplaced 10th rib fracture. She has noted no fevers chills, no palpitations, no irregular heartbeat. They note that just going down 1 step to get her out of the house it took 2 of them. He does not allow her to go down the stairs in the basement, her keeps the door to the basement closed. She denies any double vision, no blurry vision. They do feel safe keeping her at home when specifically asked about this. Related Data Home Medications ?Medication ?Instructions ?Recorded ?Confirmed bupropion HCl 150 mg tablet,12 hr 150 mg PO 04/22/24 07/13/24 sustained-release clopidogrel .Route 04/22/24 07/13/24 lisinopril .Route 04/22/24 07/13/24 carvedilol 12.5 mg tablet 12.5 mg PO BID 07/13/24 07/20/24 clopidogrel 75 mg tablet 75 mg PO QAM 07/13/24 07/20/24 duloxetine 30 mg capsule,delayed 30 mg PO DAILY 07/13/24 07/20/24 release rosuvastatin 10 mg tablet 10 mg PO QPM 07/13/24 07/20/24 Allergies Allergy/AdvReac Type Severity Reaction Status Date / Time No Known Drug Allergies Allergy Verified 07/20/24 17:51 Review of Systems Status of ROS: Reports: 6 or more systems reviewed and unremarkable except as noted in History and below PFSH [facility] Social History What is your current living situation?: I presently have a place to live Problems where you live: no known problems Problems where you live details: n/a In the past 12 months, utilities in danger of being shut off: no In past 12 months, lack of transportation kept you from medical appts, meetings, work, or getting things needed for daily living: no In the past 12 mos, have been you worried that your food would run out before you had money to buy more?: never true In the past 12 mos, the food you bought just didn't last and you didn't have money to buy more?: never true Smoking Status: Former smoker What tobacco products do you use: cigarettes Smoking quit date/years: >15 years ago Do you use any of these nicotine containing products: None Second hand tobacco smoke exposure: No How often do you have a drink containing alcohol: 2-4 times a month How many standard drinks containing alcohol do you have on a typical day: 1 or 2 How often do you have six or more drinks on one occasion: Never AUDIT-C Alcohol total score: 2 Non-prescribed substance use: denies use How often does anyone, including family, friends and others, physically hurt you: never How often does anyone, including family, friends and others, insult or talk down to you: never How often does anyone, including family, friends and others, threaten you with harm: never How often does anyone, including family, friends and others, scream or curse at you: never service: No Exam Const: Vital Signs, click to edit/add: Vital Signs - 24 hr 07/20/24 16:11 07/20/24 18:17 07/20/24 20:05 Temperature 97.5 F L 96.6 F L 96.8 F L Pulse Rate [Pulse Oximeter] 74 76 85 Respiratory Rate 16 18 18 Blood Pressure [Ri ght Upper Arm] 139/118 H 147/74 H 148/120 H Pulse Oximetry 95 95 91 Oxygen Delivery Me thod Room Air Room Air Nasal Cannula Oxygen Flow Rate 2 This 83-year-old female is alert, interactive, no apparent distress. Pupils are equal round reactive, extraocular muscles intact, no nystagmus, sclera clear. Symmetrical facial function. Speech sounds normal, no slurring. Neck is supple, no jugular venous distension, no adenopathy, no thyromegaly masses or nodules. Lungs actually sound clear, no wheezing or crackles. CV regular rate and rhythm, no murmur, normal S1-S2, no S3-S4. She is not tachypneic, no accessory muscle use. Abdomen is soft, nontender, nondistended, no organomegaly. Strength is about 4/5 and symmetric throughout, no baseline tremors. She has normal finger to nose on the right, hits the bridge of her nose with her index finger on the left, some arm drift on the left. Did not ambulate her at this time. She has no midline tenderness on her spine, she has some dependent resolving yellowish to some purplish ecchymosis that is more prominent on her right flank and back area, actually below the ribs. She does not have significant tenderness or step-off when I palpate her right lower rib area. She does have about 2+ pitting edema, generalized edema of her lower extremities but calves are nontender. Documenting provider has reviewed patient's vital signs: yes Course Course ED Course: Patient obviously has a recent MRI that is concerning for stroke pathology, will talk to Neurology on her. Will update a head CT noncontrast. Will have her on cardiac monitoring, obtain an EKG. She states she did not follow-up that she could remember after being seen in April. There was concern of embolic phenomena, probably should have had further outpatient evaluation. Unclear if this did or did not happen at this time. Will look at chest x-ray and on and see if rib fractures or further displaced, any pneumothorax, any secondary development of infection/pneumonia. Will also look at triple viral swab as is possible she could have something new. She is not clinically seem to be in congestive heart failure but will monitor her. Will also be getting a troponin and proBNP. She is aware that I may need further advanced imaging with her chest. With her falls, will also look at a D-dimer. May need to consider imaging her chest with PE, possibly legs as well to rule out DVTs depending on workup here. She will be on cardiac monitoring, pulse oximetry. Note right after seen her, nursing staff noted that they were obtaining blood pressures in the 80s and 90s systolic but patient was alert, interactive, asymptomatic. Will have them check blood pressure on alternate upper extremity. Will initiate a L of IV fluids over 2 hours. She is seemingly asymptomatic at this time, no fever noted. Nursing staff did note BP definitely higher on left, patient states that she has always had that. Reevaluation(s) Time of Reevaluation #1: 17:35 Reevaluation #1: Have reviewed patient's elevated D-dimer. Did look at her chest x-ray images. Can see displaced fractures certainly of 8 and 9, probable 10 and 11 as well. Need to wait radiology over read on this but will be proceeding with chest CT PE protocol given the elevated D-dimer. This all could be from trauma but trauma also makes her at risk for thromboembolic disease. Time of Reevaluation #2: 19:22 Reevaluation #2: Went in to see patient to discuss CT findings, labs and plan. She had just ambulated to and from the bathroom, became very dyspneic. Nursing staff placed 4 L oxygen on her. She was very short of breath, initial O2 sats were upper 70s to low 80s. She has rebounded back to 90% with a good waveform, have had to use a nasal probe. She is feeling a bit better now, states this level of shortness of breath was worse than what she was feeling earlier today. Have reviewed with nursing staff that I have ordered 40 mg IV Lasix and they will get this KENNEY. Nursing staff did do another EKG, she is still in sinus rhythm at 87 beats per minute. She has a nonspecific intra conduction delay without change. She is denying chest pain. Time of Reevaluation #3: 19:52 Reevaluation #3: Did recheck on patient, she is sitting up and looking good; oxygenation is good in the mid 90s, able speak in complete sentences. She has received the Lasix but has not started urinating yet. Discussed bedside commode to not exacerbate dyspnea. Consultations Consultation #1: Spoke with our general surgeon on-call Dr. Yoo given that this patient has some subacute rib fractures on the right side, does have for but these happened on or before July 13. July 13 was reportedly her 2nd fall and was the garage. We did discuss the kidney findings. Patient's hemoglobin is good, no abdominal pain. Radiology did recommend the triple phase renal protocol which will need to be done tomorrow. This does not need to happen emergently. Patient does not require chest tube. Her respiratory symptoms seem to be from congestive heart failure. Will talk to the hospitalists, will initiate some Lasix, patient is not on a diuretic that I see. Will be talking to the hospitalist next. Need to update patient and her family on the plan. Time: 19:04 Consultation #2: Did speak with Neurology at [facility]. We reviewed the MRI, this was done April. Reviewed the head CT tonight. She states these small lesion seen on the MRI were potentially not even likely to cause patient's symptoms but there is concern that they could be embolic. If patient stain overnight, she would recommend repeat MRI brain tomorrow, will have her colleague see the patient tomorrow. We obviously will likely be ordering an echo given patient likely has congestive heart failure. Time: 18:07 Consultation #3: Did speak with our hospitalist Dr. Tang. She request this patient be inpatient. Will make sure that this patient is improving with the IV Lasix and not worsening prior to discharge to the hospital floor. Time: 19:41 Vital Signs Vital signs: Initial Vital Signs Temperature 97.5 F L 07/20/24 16:11 Temperature Source Temporal Artery Scan 07/20/24 16:11 Pulse Rate 74 07/20/24 16:11 Respiratory Rate 16 07/20/24 16:11 Blood Pressure 139/118 H 07/20/24 16:11 Blood Pressure Mean 125 H 07/20/24 16:11 Pulse Oximetry 95 07/20/24 16:11 Oxygen Delivery Method Room Air 07/20/24 16:11 Vital Signs Temperature 97.5 F L 07/20/24 16:11 Pulse Rate 74 07/20/24 16:11 Respiratory Rate 16 07/20/24 16:11 Blood Pressure 139/118 H 07/20/24 16:11 Pulse Oximetry 95 07/20/24 16:11 Oxygen Delivery Method Room Air 07/20/24 16:11 Temperature 96.8 F L 07/20/24 23:00 Pulse Rate 73 07/20/24 23:00 Respiratory Rate 21 07/20/24 23:00 Blood Pressure 126/72 07/20/24 23:00 Pulse Oximetry 93 07/20/24 23:00 Oxygen Delivery Method Nasal Cannula 07/20/24 23:00 Oxygen Flow Rate 2 07/20/24 23:00 Medications Administered Medications: Generic Name Dose Route Start Last Admin Trade Name Leatha PRN Reason Stop Dose Admin Acetaminophen 650 mg 07/20/24 22:36 07/20/24 23:18 Acetaminophen 325 Mg Tablet PO 650 mg Q8H PRN Administration Carvedilol 12.5 mg 07/20/24 21:45 07/20/24 22:07 Carvedilol 6.25 Mg Tablet PO 12.5 mg BID KRISTA Administration Enoxaparin Sodium 40 mg 07/20/24 21:45 07/20/24 22:14 Enoxaparin 40 Mg/0.4 Ml Inj SUBCUT 40 mg HS KRISTA Administration Sodium Chloride 5 ml 07/20/24 21:10 07/20/24 22:14 Sodium Chloride 0.9 % (Flush) 10 Ml Syringe IVF 5 ml BID KRISTA Administration Discontinued Medications Generic Name Dose Route Start Last Admin Trade Name Leatha PRN Reason Stop Dose Admin Furosemide 40 mg 07/20/24 19:16 07/20/24 19:21 Furosemide 10 Mg/Ml Inj IVP 07/20/24 19:17 40 mg ONCE ONE Administration Sodium Chloride 1,000 mls @ 500 mls/hr 07/20/24 16:37 07/20/24 19:45 0.9 % Sodium Chloride 1000 Ml IV 07/20/24 18:36 Infused .Q2H KRISTA Infusion Medical Decision Making Lab Data Labs: Lab Results 07/20/24 Range/Units 16:45 WBC 6.75 (4.50-11.00) K/uL RBC 4.46 (4.00-5.20) m/uL Hgb 13.2 (12.0-16.0) gm/dL Hct 40.0 (33.0-51.0) % MCV 90 (80-100) fL MCH 30 (26-34) pg MCHC 33 (32-36) gm/dL RDW Coeff of Leonardo 13.9 (11.5-15.5) % Plt Count 200 (140-440) K/uL Neut % (Auto) 66.7 (42.0-72.0) % Lymph % (Auto) 24.1 (20-44) % [place] % (Auto) 7.6 (0.0-11.0) % Eos % (Auto) 1.3 (0.0-7.0) % Baso % (Auto) 0.3 (0.0-3.0) % Neut # (Auto) 4.50 (1.7-7.0) K/uL Lymph # (Auto) 1.63 (0.90-2.90) K/uL [place] # (Auto) 0.50 (0.00-0.90) K/UL Eos # (Auto) 0.09 (0.00-0.50) K/uL Baso # (Auto) 0.02 (0.00-0.30) K/uL Abs Immat Gran (auto) 0.00 (0.00-0.30) K/uL Imm/Tot Granulo (auto) 0.0 % D-Dimer Quant (PE/DVT) 1.30 H (0.00-0.50) ug/ml VBG pH 7.417 (7.32-7.43) VBG pCO2 39 L (40-50) mmHG VBG pO2 35.3 (25-47) mmHG VBG HCO3 25 (21-28) mmol/L Sodium 137 (135-149) mmol/L Potassium 4.1 (3.6-5.1) mmol/L Chloride 105 (96-114) mmol/L Carbon Dioxide 23 (20-32) mmol/L Anion Gap 9 (7-15) mEq/L BUN 21 (7-30) mg/dL Creatinine 0.7 (0.5-1.5) mg/dL Estimated Creat Clear 35.88 Estimated GFR 86 ml/min Glucose 112 (60-115) mg/dL Lactate 1.1 (0.5-1.9) mmol/L Calcium 8.6 (8.4-10.6) mg/dL Total Bilirubin 0.8 (0.1-1.5) mg/dL AST 23 (12-35) U/L ALT 14 (4-35) U/L Alkaline Phosphatase 59 (40-150) U/L Troponin I 0.02 (0.01-0.04) ng/mL C-Reactive Protein 2.4 H (0.5-1.0) mg/dL NT-Pro-B Natriuret Pep 6940 pg/mL Total Protein 5.8 L (6.0-8.3) g/dL Albumin 3.4 (3.3-5.0) g/dL SARS-CoV-2 (PCR) Negative SARS-CoV-2 (Negative) Influenza Type A (PCR) Negative PCR FLU A (Negative) Influenza Type B (PCR) Negative PCR FLU B (Negative) RSV (PCR) Negative PCR RSV (Negative) Imaging Data CT scan - head: Attestation: I have reviewed the pertinent imaging results. Radiologist's impression: Patient: KERRI CHAO Facility:?[facility] Patient ID:?[id number] Site Patient ID:?[id number]. Site :?[id number] Study:?CT-Head WITHOUT-07/20/2024 5:30:47 PM Ordering Physician:Yohannes Garcia Final Report: INDICATION: DIZZINESS, RECENT FALLS, ON PLAVIX TECHNIQUE: CT of the head was performed without IV contrast. COMPARISON: 04/22/2024, 04/10/2020. FINDINGS: Parenchyma: No acute hemorrhage, infarction, or mass. Moderate confluent periventricular white matter hypoattenuation is nonspecific and is favored to represent chronic small vessel ischemic disease. Suspected small left inferior frontal meningioma. Ventricles and extra-axial spaces: Moderate involutional changes. Visualized paranasal sinuses: Clear. Mastoid air cells: Clear. Bones: No focal abnormality. Additional comment: Bilateral lens surgery. IMPRESSION: No acute intracranial abnormality. Please note that all CT scans at this facility use dose modulation, iterative reconstruction, and/or weight-based dosing when appropriate to reduce radiation dose to as low as reasonably achievable. Dictated by Marino Daley MD @ 07/20/2024 5:55:23 PM (Electronic Signature) Chest x-ray: Attestation: I have reviewed the pertinent imaging results. My impression: (See above) Radiologist's impression: Patient: KERRI CHAO Facility:?[facility] Patient ID:?[id number] Site Patient ID:?[id number]. Site :?[id number] Study:?XRay-Chest Right RIBS 3 VIEWS-07/20/2024 5:32:01 PM Ordering Physician:Yohannes Garcia Final Report: INDICATION: Ongoing rib pain, feels shortness of breath today, injury TECHNIQUE: Chest radiograph, Rib radiographs 4 views right COMPARISON: 07/13/2024 FINDINGS: The sensitivity and specificity of the exam are moderately limited by the patient`s body habitus. Mediastinum: The central pulmonary arteries are near the upper limits of normal in size. Mild cardiomegaly is noted. A calcified right paratracheal lymph node is present from prior granulomatous disease. Lung: Small lung volumes are present with mild pulmonary vascular congestion, perihilar and bibasilar atelectasis seen. A small right pleural effusion is present which may be due to hemothorax in the setting of trauma. No pneumothorax is identified. Ribs and bones: Acute fractures of the right 8th-11th ribs are noted. The remaining osseous structures are unremarkable for age. Soft tissue: Surgical clips are noted in the right upper quadrant from prior cholecystectomy. IMPRESSIONS: 1. Acute fractures of the right 8th-11th ribs are noted. The appearance is similar to prior exam. 2. Small lung volumes are present with mild pulmonary vascular congestion, perihilar and bibasilar atelectasis seen. 3. A small right pleural effusion is present which may be due to hemothorax in the setting of trauma. 4. Mild cardiomegaly is noted. Dictated by Kirk Mancera MD @ 07/20/2024 5:47:12 PM Dictated by: Kirk Mancera MD @ 07/20/2024 17:47:17 (Electronic Signature) CT scan - chest: Attestation: I have reviewed the pertinent imaging results. Radiologist's impression: Patient: KERRI CHAO Facility:?[facility] Patient ID:?[id number] Site Patient ID:?[id number] Site :?1940 Study:?CT-Chest Angio PE W/ 95CC ISOVUE 370-07/20/2024 6:29:03 PM Ordering Physician:Yohannes Garcia Final Report: INDICATION: RECENT FALL, ELEVATED D-DIMER, SOB. TECHNIQUE: CT chest PE was acquired with 95 cc Isovue 370 IV contrast. MIP reformations provided COMPARISON: None. FINDINGS: Heart and vasculature: Contrast opacification of the pulmonary arterial tree is adequate. No sign of pulmonary embolism. There may be mild cardiomegaly. Coronary artery calcifications. Thoracic aorta is normal in caliber. Lungs: Mild dependent atelectasis adjacent to the pleural effusions. Smooth interlobular septal thickening. No definite suspicious pulmonary nodules. Apical predominant [id number] centrilobular emphysema. Pleura: Small to moderate bilateral pleural effusions. No pneumothorax. Lymph nodes/mediastinum: No mediastinal, hilar, or axillary adenopathy. Chest wall: There is extensive soft tissue swelling/stranding about the acute rib fractures. Upper abdomen: There are hypodense lobulated structures anterior, lateral, and posterior to the left kidney, which are incompletely evaluated. For reference, the posterior collection measures at least 9.9 x 5.6 cm. Visualized thyroid gland: Diffusely enlarged. No discretely visualized actionable nodules, though streak artifact limits evaluation. Bones: Acute nondisplaced fractures of the right posterior 8th, 10th, and 11th ribs. Acute displaced fracture of the right 9th rib. There are subacute-chronic appearing fractures of the left 6th, 7th, 8th, and 9th ribs. IMPRESSION: 1. No acute pulmonary embolism. 2. Small to moderate bilateral pleural effusions with smooth interlobular septal thickening, compatible with overall [id number] pulmonary edema. 3. Acute displaced fracture of the right 9th rib. Acute nondisplaced fractures of the right 8th, 10th, and 11th ribs. 4. There are multiple partially visualized hypodense structures about the left kidney, with the posterior collection measuring at least 9.9 cm. While nonspecific, hematomas are difficult to exclude in the setting of recent trauma. Dedicated abdominal imaging is recommended for further characterization. 5. There may be mild cardiomegaly. Consider further evaluation with an echocardiogram. These findings were discussed with Dr. Mirza at 6:58 p.m. Please note that all CT scans at this facility use dose modulation, iterative reconstruction, and/or weight-based dosing when appropriate to reduce radiation dose to as low as reasonably achievable. Dictated by Bill Randle MD @ 07/20/2024 6:59:57 PM (Electronic Signature) ECG Data Attestation: I personally reviewed and interpreted this ECG as follows: (Normal sinus rhythm, 70 beats per minute. Nonspecific intra conduction delay noted, QT corrected 516 milliseconds.) Prior ECG tracings: not available for review Discharge Plan Discharge Clinical Impression: Congestive heart failure, Hypoxia, Unsteady gait, Falls, Multiple fractures of ribs of right side
--- NOTE | 2024-07-20 16:34 | CRLHL7_ITS ---
For Patients: As a result of the Cures Act, medical imaging exams and procedure reports are released immediately into your electronic medical record. You may view this report before your referring provider. If you have questions, please contact your health care provider. INDICATION: Ongoing rib pain, feels shortness of breath today, injury TECHNIQUE: Chest radiograph, Rib radiographs 4 views right COMPARISON: 07/13/2024 FINDINGS: The sensitivity and specificity of the exam are moderately limited by the patient`s body habitus. Mediastinum: The central pulmonary arteries are near the upper limits of normal in size. Mild cardiomegaly is noted. A calcified right paratracheal lymph node is present from prior granulomatous disease. Lung: Small lung volumes are present with mild pulmonary vascular congestion, perihilar and bibasilar atelectasis seen. A small right pleural effusion is present which may be due to hemothorax in the setting of trauma. No pneumothorax is identified. Ribs and bones: Acute fractures of the right 8th-11th ribs are noted. The remaining osseous structures are unremarkable for age. Soft tissue: Surgical clips are noted in the right upper quadrant from prior cholecystectomy. IMPRESSIONS: 1. Acute fractures of the right 8th-11th ribs are noted. The appearance is similar to prior exam. 2. Small lung volumes are present with mild pulmonary vascular congestion, perihilar and bibasilar atelectasis seen. 3. A small right pleural effusion is present which may be due to hemothorax in the setting of trauma. 4. Mild cardiomegaly is noted. Dictated by Kirk Mancera MD @ 07/20/2024 5:47:12 PM Dictated by: Kirk Mancera MD @ 07/20/2024 17:47:17 (Electronically Signed)
--- NOTE | 2024-07-20 16:37 | CRLHL7_ITS ---
For Patients: As a result of the Century Cures Act, medical imaging exams and procedure reports are released immediately into your electronic medical record. You may view this report before your referring provider. If you have questions, please contact your health care provider. INDICATION: DIZZINESS, RECENT FALLS, ON PLAVIX TECHNIQUE: CT of the head was performed without IV contrast. COMPARISON: 04/22/2024, 04/10/2020. FINDINGS: Parenchyma: No acute hemorrhage, infarction, or mass. Moderate confluent periventricular white matter hypoattenuation is nonspecific and is favored to represent chronic small vessel ischemic disease. Suspected small left inferior frontal meningioma. Ventricles and extra-axial spaces: Moderate involutional changes. Visualized paranasal sinuses: Clear. Mastoid air cells: Clear. Bones: No focal abnormality. Additional comment: Bilateral lens surgery. IMPRESSION: No acute intracranial abnormality. Please note that all CT scans at this facility use dose modulation, iterative reconstruction, and/or weight-based dosing when appropriate to reduce radiation dose to as low as reasonably achievable. Dictated by Marino Daley MD @ 07/20/2024 5:55:23 PM (Electronically Signed)
[2024-07-20 16:50] LABS: HCO3 VBG 25 mmol/L (21-28); Lactate* 1.1 mmol/L (0.5-1.9); PCO2 VBG 39 mmHG (40-50); PO2 VBG 35.3 mmHG (25-47); pH VBG 7.417 (7.32-7.43)
[2024-07-20 16:53] LABS: Basophils Absolute Auto 0.02 K/uL (0.00-0.30); Basophils Percent Auto 0.3 % (0.0-3.0); Eosinophils Absolute Auto 0.09 K/uL (0.00-0.50); Eosinophils Percent Auto 1.3 % (0.0-7.0); Hemoglobin* 13.2 gm/dL (12.0-16.0); Lymphocytes Absolute Auto 1.63 K/uL (0.90-2.90); Lymphocytes Percent Auto 24.1 % (20-44); Mean Corpuscular HGB Conc 33 gm/dL (32-36); Mean Corpuscular Hemoglobin 30 pg (26-34); Mean Corpuscular Volume 90 fL (80-100); Monocytes Percent Auto 7.6 % (0.0-11.0); Neutrophils Percent Auto 66.7 % (42.0-72.0); Platelet Count* 200 K/uL (140-440); RDW Coefficient of Variation % 13.9 % (11.5-15.5); Red Blood Count 4.46 m/uL (4.00-5.20); Slide Review Reflex No; White Blood Count* 6.75 K/uL (4.50-11.00)
[2024-07-20 17:05] LABS: Albumin* 3.4 g/dL (3.3-5.0); Chloride* 105 mmol/L (96-114); Potassium* 4.1 mmol/L (3.6-5.1); Sodium* 137 mmol/L (135-149)
[2024-07-20 17:07] LABS: Blood Urea Nitrogen* 21 mg/dL (7-30); Creatinine* 0.7 mg/dL (0.5-1.5); Est. Creatinine Clearance* 35.88; Estimated Glomerular Filt Rate 86 ml/min
[2024-07-20 17:08] LABS: Alanine Aminotransferase* 14 U/L (4-35); Alkaline Phosphatase* 59 U/L (40-150); Anion Gap 9 mEq/L (7-15); Aspartate Amino Transferase* 23 U/L (12-35); Bilirubin Total* 0.8 mg/dL (0.1-1.5); Calcium* 8.6 mg/dL (8.4-10.6); Carbon Dioxide* 23 mmol/L (20-32); Glucose* 112 mg/dL (60-115); Total Protein* 5.8 g/dL (6.0-8.3)
[2024-07-20 17:11] LABS: C Reactive Protein* 2.4 mg/dL (0.5-1.0)
[2024-07-20 17:20] LABS: Troponin I* 0.02 ng/mL (0.01-0.04)
[2024-07-20 17:28] LABS: PCR FLU A Negative PCR FLU A (Negative); PCR FLU B Negative PCR FLU B (Negative); PCR RSV Negative PCR RSV (Negative); SARS PCR* Negative SARS-CoV-2 (Negative)
[2024-07-20 17:30] LABS: NT Pro B Type NatriureticPept* 6940 pg/mL
[2024-07-20] MEDS: 0.9 % SODIUM CHLORIDE 1000 ml 1,000 ML 500 ML IV (17:31)
--- NOTE | 2024-07-20 17:35 | CRLHL7_ITS ---
For Patients: As a result of the Century Cures Act, medical imaging exams and procedure reports are released immediately into your electronic medical record. You may view this report before your referring provider. If you have questions, please contact your health care provider. INDICATION: RECENT FALL, ELEVATED D-DIMER, SOB. TECHNIQUE: CT chest PE was acquired with 95 cc Isovue 370 IV contrast. MIP reformations provided COMPARISON: None. FINDINGS: Heart and vasculature: Contrast opacification of the pulmonary arterial tree is adequate. No sign of pulmonary embolism. There may be mild cardiomegaly. Coronary artery calcifications. Thoracic aorta is normal in caliber. Lungs: Mild dependent atelectasis adjacent to the pleural effusions. Smooth interlobular septal thickening. No definite suspicious pulmonary nodules. Apical predominant [id number] centrilobular emphysema. Pleura: Small to moderate bilateral pleural effusions. No pneumothorax. Lymph nodes/mediastinum: No mediastinal, hilar, or axillary adenopathy. Chest wall: There is extensive soft tissue swelling/stranding about the acute rib fractures. Upper abdomen: There are hypodense lobulated structures anterior, lateral, and posterior to the left kidney, which are incompletely evaluated. For reference, the posterior collection measures at least 9.9 x 5.6 cm. Visualized thyroid gland: Diffusely enlarged. No discretely visualized actionable nodules, though streak artifact limits evaluation. Bones: Acute nondisplaced fractures of the right posterior 8th, 10th, and 11th ribs. Acute displaced fracture of the right 9th rib. There are subacute-chronic appearing fractures of the left 6th, 7th, 8th, and 9th ribs. IMPRESSION: 1. No acute pulmonary embolism. 2. Small to moderate bilateral pleural effusions with smooth interlobular septal thickening, compatible with overall [id number] pulmonary edema. 3. Acute displaced fracture of the right 9th rib. Acute nondisplaced fractures of the right 8th, 10th, and 11th ribs. 4. There are multiple partially visualized hypodense structures about the left kidney, with the posterior collection measuring at least 9.9 cm. While nonspecific, hematomas are difficult to exclude in the setting of recent trauma. Dedicated abdominal imaging is recommended for further characterization. 5. There may be mild cardiomegaly. Consider further evaluation with an echocardiogram. These findings were discussed with Dr. Mirza at 6:58 p.m. Please note that all CT scans at this facility use dose modulation, iterative reconstruction, and/or weight-based dosing when appropriate to reduce radiation dose to as low as reasonably achievable. Dictated by Bill Randle MD @ 07/20/2024 6:59:57 PM (Electronically Signed)
[2024-07-20 18:17] VITALS: BP 147/74; PULSE 76; RESP 18; TEMP 35.9; O2SAT 95
[2024-07-20] MEDS: FUROSEMIDE 10 MG/ML inj 40 MG IVP (19:21)
--- OUTSIDE RECORDS SUMMARY | 2024-07-20 19:51 | XMS_ITS | Clinical Summary ---
Author Organization [facility] Address [facility] [place] [address] Care Team Providers Care Firer Portable Boiler Name Role Phone Cuco Sandoval MD Unavailable [phone] Curtis Liu Unavailable Unavailable Evy Renteria MD Unavailable [phone] Cindy Henry DO Primary Care Provider [phone] Allergies No known active allergies Medications acetaminophen (TYLENOL EXTRA STRGTH) 500 mg tablet Take 1 tablet by mouth every 6 hours if needed. Max acetaminophen dose: 4000mg in 24 hrs. 0 12/04/19 10 Active loratadine (CLARITIN) 10 mg tabletIndications: Other allergic rhinitis Take 1 tablet by mouth once daily. 0 04/11/19 16 Active ibuprofen (ADVIL; MOTRIN) 200 mg tablet Every 6 Hours as needed Active True Metrix Glucose Test Strip stripIndications:C ontrolled type 2 diabetes mellitus with complication, without long-term current use of insulin (HC) TEST ONE TIME DAILY 100 Each 4 01/30/20 21 Active TRUEplus Lancets 33 gauge miscIndications:Co ntrolled type 2 diabetes mellitus with complication, without long-term current use of insulin (HC) TEST ONE TIME DAILY 100 Each 01/30/20 21 Active medication order composer vitamin d3 0 12/09/19 23 Active medication order composer vitamin b12 and vitamin d3 0 12/09/19 Active carvediloL (COREG) 12.5 mg tabletIndications: HTN (hypertension) Take 1 Tablet (12.5 mg) by mouth two times daily with meals. 180 Tablet 3 02/05/20 24 Active clopidogreL (PLAVIX) 75 mg tabletIndications: Transient cerebral ischemia, unspecified type Take 1 Tablet (75 mg) by mouth once daily in the morning. 90 Tablet 4 02/05/20 24 Active DULoxetine (CYMBALTA) 30 mg Delayed-release capsuleIndications :Type 2 diabetes mellitus with diabetic neuropathy, without long-term current use of insulin (HC) Take 1 Capsule (30 mg) by mouth once daily. 90 Capsule 4 02/05/20 24 Active fluticasone (50 mcg per actuation) nasal solution (FLONASE)Indicatio ns:Seasonal allergic rhinitis, unspecified trigger Inhale 2 Sprays in both nostrils once daily. 48 g 3 02/05/20 24 Active lisinopriL (PRINIVIL; ZESTRIL) 2.5 mg tabletIndications: HTN (hypertension),Typ e 2 diabetes mellitus with diabetic neuropathy, without long-term current use of insulin (HC) Take 1 Tablet (2.5 mg) by mouth once daily. 90 Tablet 4 02/05/20 24 Active rosuvastatin (Crestor) 10 mg tabletIndications: Mixed hyperlipidemia Take 1 Tablet (10 mg) by mouth at bedtime. 90 Tablet 4 02/05/20 24 Active Walker - 4 wheelsIndications: Orthostatic hypotension,Loss of balance,Diabetic mononeuropathy associated with diabetes mellitus due to underlying condition (HC) For home use. Length of need: 99 seated walker. 1 Each 03/30/19 25 Active buPROPion 150 mg Extended-Release tabletIndications: Depression, major, single episode, mild,Anxiety Take 1 Tablet (150 mg) by mouth once daily in the morning. 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 9) with comorbidity 01/15/2016 06/01/2024 DM neuropathy, type II diabetes mellitus 04/24/2010 11/20/2017 Gallstone pancreatitis 04/08/201006/24 Chronic osteomyelitis of right foot 12/08/2022 Encounters Date Type Department Care Team Description 07/20/2024 Nurse Triage [facility] [[email or web address] [address] [place] [address] Cindy Henry DO Dizziness; Slurred Speech; Weight 07/13/2024 Nurse Triage [facility] [[email or web address]] [address] [place] [address] Cindy Henry DO Chest Injury 06/01/2024 1:00 PM CDT Office Visit [facility] [[email or web address]] [address] [place] [address] Cindy Henry DO Depression; Breathing Problem (getting worse) 06/01/2024 Travel 05/04/2024 1:00 PM COMMUNICATIONS OFFICER Office Visit [facility] [[email or web address]] [address] [place] [address] Cindy Henry DO Concerns (FALLING EVERY OTHER DAY, fell a week and a half ago in her home, she feels fine, gets dizzy, falls backwards) 05/04/2024 Travel 04/22/2024 Orders Only [facility] Scanner 1 scan: (1-Ord) [facility], MRI HEAD/BRAIN WO CON, 04/22/2024 04/22/2024 Nurse Triage [facility] [email or web address]] [address] [place] [address] Cindy Henry DO Dizziness from Last 3 Months Immunizations Immunization Administration Dates Next Due COVID-19 VACCINE SPIKEVAX (M ODERNA 50MCG/0.5ML) 12YO+ PFS 02/05/2024 COVID-19 vaccine ([employer] 30mcg/0.3mL) PF, MDV 12/19/2020,07/16/2020,06/25/2020 Influenza RIV4 [...] 02/03/2004 Smokeless Tobacco: Never Tobacco Cessation:Counseling Given: Yes Alcohol Use Standard Drinks/Week Comments Not Currently 1.7 (1 standard drink = 0.6 oz p ure alcohol) 2 drinks a week PHQ-2 Answer Date Recorded PHQ-2 TOTAL SCORE 2 06/01/2024 Social Connections Answer Date Recorded Do you [...] on file Legal Sex Female 7:59 AM COMMUNICATIONS OFFICER Gender Identity Not on file Sexual Orientation [...] Sign Reading Time Taken Comments Blood Pressure 135/75 06/01/2024 1:01 PM CDT Pulse 61 06/01/2024 1:01 PM CDT Temperature 36.5 C (97.7 F) 02/05/2024 11:24 AM COMMUNICATIONS OFFICER Respiratory Rate 16 06/12/2021 7:42 AM CDT Oxygen Saturation 94% 06/01/2024 1:01 PM CDT Inhaled Oxygen Concentration - - Weight 79.4 kg (175 lb) 06/01/2024 1:01 PM CDT Height 158.2 cm (5' 2.3) 05/04/2024 12:55 PM CS T Body Mass Index 31.7 05/04/2024 12:55 PM COMMUNICATIONS OFFICER Plan of Treatment Upcoming Encounters Date Type Department Care Team (Late st Contact Info) Description 07/25/2024 1:00 PM CDT Office Visit [facility] [[email or web address]] [address] [place] [address] Cindy Henry DO [address] [place] [address] 09/05/2024 1:00 PM CDT Office Visit [facility] [[email or web address]] [address] [place] [address] Cindy Henry DO [address] [place] [address] Health Maintenance Due Date Last Done Comments Zoster (shingles) series for age 50+ (2 of 3) 06/07/2012 04/12/2012 Tetanus booster 08/20/2022 08/20/2012, 05/14, 08/14/1990 COVID-19 vaccine series ( season) 2024 02/05/2024, 04/30/2023, 12/09/2021, Additional history exists Medicare Wellness for age 65+ 02/05/2025, 12/08/2022, 04/10/2021, Additional history exists BMI (ht and wt on same day) for age 18+ 05/04/2025 05/04/2024, 02/05/2024, 04/10/2021, Additional history exists Depression screening for age 12+ 06/01/2025 06/01/2024, 05/04/2024, 03/30/2024, Additional history exists Tdap Completed 08/20/2012 DEXA/DXA scan for age 65+ Completed 2012, 07/12/2010, 06/28/2010 (Postponed) Pneumococcal series for age 50+ Completed 09/11/2014, 01/13/2011, 06/28/2010, Additional history exists RSV vaccine for adults or Completed 04/30/2023 Influenza Vaccine Completed 02/05/2024, , 12/19/2020, Additional history exists Procedures Procedure Name Priority Date/Time Associated Diagnosis Comments URINALYSIS MACROSCOPIC - [facility] ONLY POC DIP (QUEST) Routine 05/04/2024 2:16 PM COMMUNICATIONS OFFICER Depression, major, single episode, mild Anxiety Lethargy URINALYSIS MICROSCOPIC Routine 2:14 PM COMMUNICATIONS OFFICER Depression, major, single episode, mild Anxiety Lethargy URINE CULTURE Routine 05/04/2024 2:14 PM COMMUNICATIONS OFFICER Depression, major, single episode, mild Anxiety Lethargy SCAN-MRI INTERPRETATION 04/22/19 12:00 AM COMMUNICATIONS OFFICER XR DXA BONE DENSITY 2 SITES AXIAL Routine 08/24/2012 2:20 PM CDT Osteopenia from Last 3 Months or Most Recently Relevant to Health Maintenance Results * (ABNORMAL) POCT Urinalysis Dipstick Only (05/04/2024 2:16 PM COMMUNICATIONS OFFICER) PH 6.5 5.0 - 8.0 [facility] SPECIFIC GRAVITY 1.025 1.001 - 1.035 [facility] GLUCOSE NEGATIVE NEGATIVE [facility] BILIRUBIN NEGATIVE NEGATIVE [facility] KETONES NEGATIVE NEGATIVE [facility] OCCULT BLOOD NEGATIVE NEGATIVE [facility] PROTEIN TRACE(A) NEGATIVE [facility] NITRITE POSITIVE(A) NEGATIVE [facility] LEUKOCYTE ESTERASE 1+(A) NEGATIVE [facility] Urine URINE SPECIMEN / Unknown 05/04/2024 2:16 PM COMMUNICATIONS OFFICER 05/04/2024 2:16 PM COMMUNICATIONS OFFICER Cindy Henry DO URINE Final Resul t [facility] [address] [place] [address], [facility] [address] [place] [address] * (ABNORMAL) URINALYSIS MICROSCOPIC (05/04/2024 2:14 PM COMMUNICATIONS OFFICER) RBC 3-5(A) 0-2, None Seen /HPF 05/05/2024 6:33 AM COMMUNICATIONS OFFICER [facility] WBC 6-10(A) 0-2, 3-5, None Seen /HPF 05/05/2024 6:33 AM COMMUNICATIONS OFFICER [facility] BACTERIA Many(A) None Seen, Rare, Few Bacteria/H PF 05/05/2024 6:33 AM COMMUNICATIONS OFFICER [facility] EPITHELIAL CELLS Few None Seen, Few Epi/HPF 05/05/2024 6:33 AM COMMUNICATIONS OFFICER [facility] HYALINE CASTS 0-2 0-2, 3-5 /LPF 05/05/2024 6:33 AM COMMUNICATIONS OFFICER [facility] Urine URINE SPECIMEN / Unknown Non-Blood / Unknown 05/04/2024 2:14 PM COMMUNICATIONS OFFICER 05/04/2024 2:14 PM COMMUNICATIONS OFFICER us Cindy Rachael Detert DO URINE Final Resul t [facility] [address] [place] [address], * (ABNORMAL) URINE CULTURE (05/04/2024 2:14 PM COMMUNICATIONS OFFICER) CULTURE RESULT(A) 05/07/2024 11:34 AM COMMUNICATIONS OFFICER [facility] CULTURE >100,000 CFU/mL Escherichia coli 05/07/2024 11:34 AM COMMUNICATIONS OFFICER [facility] CULTURE 50,000-100,000 CFU/mL Multiple organisms probable contaminants 05/07/2024 11:34 AM COMMUNICATIONS OFFICER [facility] Urine URINE SPECIMEN / Unknown Non-Blood / Unknown 05/04/2024 2:14 PM COMMUNICATIONS OFFICER 05/04/2024 2:14 PM COMMUNICATIONS OFFICER Narrative Organism Antibiotic Method Susceptibility Escherichia coli TRIMETHOPRIM/SULF <=04/03: S Escherichia coli AMPICILLIN >=32: R Escherichia coli CEFAZOLIN 8: R Escherichia coli CEFAZOLIN-UC 8: S Comment:Cefazolin-UC interpretations are for therapy of uncomplicated UTIs due to E.coli, K.pneumoniae, or P.mirablis. Cefazolin breakpoint is used as a surrogate to predict results for the oral agents - cefdinir, cefuroxime, and cephalexin, when used for therapy of uncomplicated UTIs due to E coli, K, pneumoniae, and P. mirabilis. The FDA recommends cefadroxil susceptibility can be deduced from cefazolin. Escherichia coli GENTAMICIN <=1: S Escherichia coli CEFTRIAXONE <=0.25: S Escherichia coli CEFTAZIDIME <=0.5: S Escherichia coli LEVOFLOXACIN <=0.12: S Escherichia coli CIPROFLOXACIN <=0.06: S Escherichia coli PIPERACILLIN/TAZO <=4: S Escherichia coli AMPICILLIN/SULBACTAM >=32: R Escherichia coli CEFEPIME <=0.12: S Escherichia coli MEROPENEM <=0.25: S Escherichia coli NITROFURANTOIN <=16: S Cindy Henry DO MICROBIOLOGY Final Resul t [facility] [address] [address], * SCAN-MRI INTERPRETATION (04/22/2024 12:00 AM COMMUNICATIONS OFFICER) Anatomical Region Laterality Modality Other us Scanner OTHER Final Result * XR DXA BONE DENSITY 2 SITES [...] or Surgical procedure from this date. Cindy Henry DO DEXA Final Resul t from Last 3 Months or Most Recently Relevant to Health Maintenance Insurance [facility] AETNA MR Advance Directives * Full [...] 6:02 AM 02/12/2011 2:24 PM Care Teams Firer Portable Boiler Relationship Specialty Start Date End Date Cindy Henry DO [address] [place] [address] PCP - General Family Practice 12/08/22 Cuco Sandoval MD [address] [place] [address] Oncology Hematology and Oncology 08/20/12 Curtis Liu Ophthalmology Customer Services Coordinator 08/20/12 Evy Renteria MD Ophthalmology Ophthalmology Surgery 08/20/12
[2024-07-20 20:05] VITALS: BP 148/120; PULSE 85; RESP 18; TEMP 36; O2SAT 91
[2024-07-20 20:16] VITALS: BP 160/95; PULSE 77; RESP 22; TEMP 36; O2SAT 100; O2SAT 94; BMI 30.4
--- NOTE | 2024-07-20 21:10 | PM.IMHP1 ---
Assessment and Plan Assessment and plan (1) Acute hypoxic respiratory failure: Problem comment: -patient was short of breath specially on exertion with her O2 sat going down to the 70s. -Her chest CT scan showed congestion and bilateral pleural effusions specially on the right side where the ribs were fractured which might be hemothorax. - BNP >6000 -Patient was given 1 dose of IV Lasix 40 mg and ordered an echo. -Gen Sx also were consulted by ED given that this patient has some subacute rib fractures on the right side, also discussed kidney findings. Patient's hemoglobin is good, no abdominal pain. No chest tube needed. Status: Acute (2) Acute exacerbation of chronic heart failure: Problem comment: Dyspnea and orthopnea for a week Start Lasix IV 40 mg bid Daily weight measurements I&Os Echo Continue guideline directed heart failure treatment Status: Acute (3) Heart failure with reduced ejection fraction: Problem comment: Echo 05/2021: Final Impressions: 1. Normal LV size, mildly increased wall thickness, mildly reduced global systolic function with an estimated EF of 45 - 50%. 2. Right ventricular cavity size is normal, global systolic RV function is normal. 3. regurgitation. 4. No significant valve disease detected. Status: Acute (4) Multiple fractures of ribs of right side: Problem comment: -Her chest CT scan showed congestion and bilateral pleural effusions specially on the right side where the ribs were fractured which might be hemothorax. -Gen Sx also were consulted by ED given that this patient has some subacute rib fractures on the right side, also discussed kidney findings. Patient's hemoglobin is good, no abdominal pain. Status: Acute (5) Traumatic hemothorax without open wound into thorax: Status: Acute (6) Kidney hematoma: Problem comment: -CT showed left kidney fluid collection that could be hematoma in the setting of multiple traumas. -Radiology did recommend the triple phase renal protocol which will need to be done tomorrow. This does not need to happen emergently. Status: Acute (7) Suspected cerebrovascular accident: Problem comment: -patient was here in April 2024 for dizziness and MRI at that time showed 2 punctate hyperintense foci on diffusion-weighted imaging in the right occipital lobe and left frontal lobe consistent with subacute infarcts. Distribution raises concern for embolic etiology. -ED doctor contacted tele neuro of who states that it is better to follow up with another brain MRI without contrast. -MRI ordered -echo ordered Status: Acute (8) Falls: Problem comment: PT OT consult Status: Acute (9) Unsteady gait: Status: Acute (10) History of TIAs: Status: Acute (11) Weight loss: Status: Acute Total Time Spent Total Time Spent: Time spent: Today I spent 75 minutes seeing the patient, discussing the patient with ER staff, reviewing Expanse and EPIC notes/diagnostics, discussing the care plan with our care time that includes social work, PT/OT, pharmacy, RT, longterm and documenting my impressions and plan in the medical record. Hospitalist- H&P: HPI History of Present Illness Date Seen: 07/20/24 Chief complaint: infusion nurse concerned about her, dizzy, pale Narrative: Rach Moore is a 83 year old female with past medical history of hypertension, congestive heart failure, paroxysmal supraventricular tachycardia, TIA, diabetes and multiple falls who presents to the ED after she was advised by a nurse to visit ED due to worsening gait, dizziness and 2 recent falls with the last 1 on July 13 that had led to multiple rt ribs fractures 10-24. Patient also mentioned that she started to have shortness of breath for about a week this shortness of breath was also associated with symptoms of orthopnea all started a week ago. In addition patient lost 20lb of weight over the past 3-4 months. It is worthy to note that the patient was here in April 2024 for dizziness and MRI at that time showed 2 punctate hyperintense foci on diffusion-weighted imaging in the right occipital lobe and left frontal lobe consistent with subacute infarcts. Distribution raises concern for embolic etiology. At the ED, patient was short of breath specially on exertion with her O2 sat going down to the 70s. Her chest CT scan showed congestion and bilateral pleural effusions specially on the right side where the ribs were fractured which might be hemothorax. And showed left kidney fluid collection that could be hematoma in the setting of multiple traumas. BNP >6000 ED doctor contacted tele neuro of who states that it is better to follow up with another brain MRI without contrast. Patient was given 1 dose of IV Lasix 40 mg and ordered an echo. Gen Sx also were consulted by ED given that this patient has some subacute rib fractures on the right side, also discussed kidney findings. Patient's hemoglobin is good, no abdominal pain. Radiology did recommend the triple phase renal protocol which will need to be done tomorrow. This does not need to happen emergently. Review of Systems Status of ROS: Reports: 6 or more systems reviewed and unremarkable except as noted in History and below [facility] Social History Smoking Status: Former smoker What tobacco products do you use: cigarettes Smoking quit date/years: >15 years ago Do you use any of these nicotine containing products: None Second hand tobacco smoke exposure: No How often do you have a drink containing alcohol: 4 or more times a week How many standard drinks containing alcohol do you have on a typical day: 1 or 2 How often do you have six or more drinks on one occasion: Never AUDIT-C Alcohol total score: 4 Non-prescribed substance use: denies use service: No Meds Home Medications and Allergies Home Medications ?Medication ?Instructions ?Recorded ?Confirmed ?Type bupropion HCl 150 mg tablet,12 hr 150 mg PO 04/22/24 07/13/24 History sustained-release clopidogrel .Route 04/22/24 07/13/24 History lisinopril .Route 04/22/24 07/13/24 History carvedilol 12.5 mg tablet 12.5 mg PO BID 07/13/24 07/20/24 History clopidogrel 75 mg tablet 75 mg PO QAM 07/13/24 07/20/24 History duloxetine 30 mg capsule,delayed 30 mg PO DAILY 07/13/24 07/20/24 History release rosuvastatin 10 mg tablet 10 mg PO QPM 07/13/24 07/20/24 History Allergies Allergy/AdvReac Type Severity Reaction Status Date / Time No Known Drug Allergies Allergy Verified 07/20/24 17:51 Exam Narrative: Exam Narrative: Physical exam GENERAL: Mild Increased work of breathing, on nasal cannula. HEAD AND NECK: Atraumatic, normocephalic CARDIOVASCULAR: RRR. Normal S1, S2. No murmurs. b/l LE edema +ve RESPIRATORY: Reduced air entry on the right side. +ve crackles bilaterally. NEUROLOGY: Alert, awake, oriented X 3. PSYCH: Normal mood, normal affect. Const: Vital Signs, click to edit/add: Vital Signs - 24 hr 07/20/24 16:11 07/20/24 18:17 07/20/24 20:05 Temperature 97.5 F L 96.6 F L 96.8 F L Pulse Rate [Pulse Oximeter] 74 76 85 Respiratory Rate 16 18 18 Blood Pressure [Le ft Arm] Blood Pressure [Ri ght Upper Arm] 139/118 H 147/74 H 148/120 H Pulse Oximetry 95 95 91 Oxygen Delivery Me thod Room Air Room Air Nasal Cannula Oxygen Flow Rate 2 07/20/24 20:16 Temperature 96.8 F L Pulse Rate [Pulse Oximeter] 77 Respiratory Rate Blood Pressure [Le ft Arm] 160/95 H Blood Pressure [Ri ght Upper Arm] Pulse Oximetry 100 Oxygen Delivery Me thod Nasal Cannula Oxygen Flow Rate 2 Hospitalist - H&P: Result Labs Labs: Short CBC 07/20/24 Range/Units 16:45 WBC 6.75 (4.50-11.00) K/uL Hgb 13.2 (12.0-16.0) gm/dL Hct 40.0 (33.0-51.0) % Plt Count 200 (140-440) K/uL BMP 07/20/24 16:45 Sodium 137 Potassium 4.1 Chloride 105 Carbon Dioxide 23 BUN 21 Creatinine 0.7 Glucose 112 Calcium 8.6 Cardiac Enzymes 07/20/24 Range/Units 16:45 Troponin I 0.02 (0.01-0.04) ng/mL Liver Function 07/20/24 Range/Units 16:45 Total Bilirubin 0.8 (0.1-1.5) mg/dL AST 23 (12-35) U/L ALT 14 (4-35) U/L Alkaline Phosphatase 59 (40-150) U/L Albumin 3.4 (3.3-5.0) g/dL ECG Attestation: I personally reviewed and interpreted this ECG as follows: ECG interpretation date: 07/20/24 Interpretation: Normal sinus rhythm with left bundle branch block, no previous EKG to compare. Increased QTC at 516. Imaging CT scan - chest: Attestation: I have reviewed the pertinent imaging results. Radiologist's impression: INDICATION: RECENT FALL, ELEVATED D-DIMER, SOB. TECHNIQUE: CT chest PE was acquired with 95 cc Isovue 370 IV contrast. MIP reformations provided COMPARISON: None. FINDINGS: Heart and vasculature: Contrast opacification of the pulmonary arterial tree is adequate. No sign of pulmonary embolism. There may be mild cardiomegaly. Coronary artery calcifications. Thoracic aorta is normal in caliber. Lungs: Mild dependent atelectasis adjacent to the pleural effusions. Smooth interlobular septal thickening. No definite suspicious pulmonary nodules. Apical predominant [id number] centrilobular emphysema. Pleura: Small to moderate bilateral pleural effusions. No pneumothorax. Lymph nodes/mediastinum: No mediastinal, hilar, or axillary adenopathy. Chest wall: There is extensive soft tissue swelling/stranding about the acute rib fractures. Upper abdomen: There are hypodense lobulated structures anterior, lateral, and posterior to the left kidney, which are incompletely evaluated. For reference, the posterior collection measures at least 9.9 x 5.6 cm. Visualized thyroid gland: Diffusely enlarged. No discretely visualized actionable nodules, though streak artifact limits evaluation. Bones: Acute nondisplaced fractures of the right posterior 8th, 10th, and 11th ribs. Acute displaced fracture of the right 9th rib. There are subacute-chronic appearing fractures of the left 6th, 7th, 8th, and 9th ribs. IMPRESSION: 1. No acute pulmonary embolism. 2. Small to moderate bilateral pleural effusions with smooth interlobular septal thickening, compatible with overall [id number]-azevfdvo pulmonary edema. 3. Acute displaced fracture of the right 9th rib. Acute nondisplaced fractures of the right 8th, 10th, and 11th ribs. 4. There are multiple partially visualized hypodense structures about the left kidney, with the posterior collection measuring at least 9.9 cm. While nonspecific, hematomas are difficult to exclude in the setting of recent trauma. Dedicated abdominal imaging is recommended for further characterization. 5. There may be mild cardiomegaly. Consider further evaluation with an echocardiogram. These findings were discussed with Dr. Mirza at 6:58 p.m. Please note that all CT scans at this facility use dose modulation, iterative reconstruction, and/or weight-based dosing when appropriate to reduce radiation dose to as low as reasonably achievable. Dictated by Bill Randle MD @ 07/20/2024 6:59:[address] scan - head: Radiologist's impression: [address] [address] Diagnostic Imaging Report Patient: Rach Moore MR#: [id number] : 1940 Acct:[id number] Loc: ED Service Date: 07/20/[address]: Ordering Physician: Radha Garcia M.D. Date of Service: 07/20/24 Procedure(s): CT head/brain wo con Accession Number(s): [id number] cc: Cindy Henry D.O.; Radha Garcia M.D.~ For Patients: As a result of the Cures Act, medical imaging exams and procedure reports are released immediately into your electronic medical record. You may view this report before your referring provider. If you have questions, please contact your health care provider. INDICATION: DIZZINESS, RECENT FALLS, ON PLAVIX TECHNIQUE: CT of the head was performed without IV contrast. COMPARISON: 04/22/2024, 04/10/2020. FINDINGS: Parenchyma: No acute hemorrhage, infarction, or mass. Moderate confluent periventricular white matter hypoattenuation is nonspecific and is favored to represent chronic small vessel ischemic disease. Suspected small left inferior frontal meningioma. Ventricles and extra-axial spaces: Moderate involutional changes. Visualized paranasal sinuses: Clear. Mastoid air cells: Clear. Bones: No focal abnormality. Additional comment: Bilateral lens surgery. IMPRESSION: No acute intracranial abnormality. Please note that all CT scans at this facility use dose modulation, iterative reconstruction, and/or weight-based dosing when appropriate to reduce radiation dose to as low as reasonably achievable. Dictated by Marino Daley MD @ 07/20/2024 5:55:23 PM (Electronically Signed)
[2024-07-20] MEDS: carvediloL 6.25 MG TABLET 12.5 MG PO (22:07)
[2024-07-20] MEDS: SODIUM CHLORIDE 0.9 % (FLUSH) 10 ML SYRINGE 5 ML IVF (22:14)
[2024-07-20] MEDS: ENOXAPARIN 40 MG/0.4 ML INJ SUBCUT (22:14)
[2024-07-20 23:00] VITALS: BP 126/72; PULSE 65; PULSE 73; RESP 21; TEMP 36; O2SAT 93; O2SAT 94
[2024-07-20] MEDS: ACETAMINOPHEN 325 MG TABLET 650 MG PO (23:18)
[2024-07-21] VITALS (13 sets, daily range): BP systolic 68–148; BP diastolic 43–81; PULSE 34–95; RESP 17–22; TEMP 36–37.1; O2SAT 90–96; BMI 29.3
[2024-07-21 03:27] LABS: Appearance Urine Clear (Clear); Bilirubin Urine Negative (Negative); Blood Urine Negative (Negative); Color Urine Yellow (Yellow); Glucose Urine Negative (Negative); Ketones Urine Negative (Negative); Leukocyte Esterase Urine Negative (Negative); Nitrite Urine Negative (Negative); Protein Urine Negative (Negative); Specific Gravity Urine <= 1.005 (1.000-1.030); Urobilinogen Urine 0.2 (0.2-1.0); pH Urine 5.5 (5.0-8.5)
[2024-07-21 03:35] LABS: Bacteria Urine Few; RBC Urine 0-2 (0-2); Squamous Epithelial Cell Urine Few (None-Few)
--- NOTE | 2024-07-21 05:15 | PC.NURSE ---
PT WAS NOTED TO HAVE GONE INTO A-FIB. EKG DONE WHICH SHOWED A-FIB ALSO IN A CONTROLLED RATE. [facility] DACIA BEST MD NOTIFIED AND NO NEW ORDERS RECEIVED.
[2024-07-21 06:46] LABS: Hematocrit 41.3 % (33.0-51.0); Hemoglobin* 13.5 gm/dL (12.0-16.0); Mean Corpuscular HGB Conc 33 gm/dL (32-36); Mean Corpuscular Hemoglobin 29 pg (26-34); Mean Corpuscular Volume 90 fL (80-100); Platelet Count* 188 K/uL (140-440); Red Blood Count 4.61 m/uL (4.00-5.20); White Blood Count* 7.22 K/uL (4.50-11.00)
[2024-07-21 06:52] LABS: Slide Review Reflex No
[2024-07-21 07:00] LABS: Chloride* 104 mmol/L (96-114); Potassium* 3.6 mmol/L (3.6-5.1); Sodium* 138 mmol/L (135-149)
--- NOTE | 2024-07-21 07:00 | CRLHL7_ITS ---
For Patients: As a result of the Century Cures Act, medical imaging exams and procedure reports are released immediately into your electronic medical record. You may view this report before your referring provider. If you have questions, please contact your health care provider. Indication: Worsening dizziness, gait imbalance Technique: Multiplanar, multisequence MRI of the brain obtained without contrast. Comparison: CT head 07/20/2024, MRI brain 04/22/2024 Findings: The ventricles and cortical sulci are diffusely prominent, most compatible with generalized cerebral volume loss. Focal and confluent regions of FLAIR hyperintensity are present throughout the cerebral white matter and central jagdish, typical for chronic microangiopathy. No acute/subacute ischemia, intracranial hemorrhage, or abnormal extra-axial fluid collection. Predominantly empty sella configuration. Preserved major intracranial arterial flow voids. Normal calvarial marrow signal. No obstructive paranasal sinus disease or significant mastoid effusion. Bilateral lens implants. Impression: 1. No evidence of acute intracranial abnormality. 2. Moderate generalized cerebral volume loss and moderately advanced chronic microangiopathy changes. Dictated by Sabrina Loyola MD @ 07/21/2024 11:56:38 AM (Electronically Signed)
[2024-07-21 07:03] LABS: Anion Gap 10 mEq/L (7-15); Blood Urea Nitrogen* 17 mg/dL (7-30); Calcium* 8.9 mg/dL (8.4-10.6); Carbon Dioxide* 24 mmol/L (20-32); Creatinine* 0.8 mg/dL (0.5-1.5); Est. Creatinine Clearance* 35.88; Estimated Glomerular Filt Rate 74 ml/min; Glucose* 104 mg/dL (60-115)
[2024-07-21 07:04] LABS: Magnesium* 1.9 mg/dL (1.5-2.6)
--- NOTE | 2024-07-21 07:56 | PC.NURSE ---
Shift note ([id number]): Patient admitted at 2014 from ED. Pleasant, alert and oriented. Accompanied by her and daughter. Pt pivot transferred to bedside commode with walker, gait belt and assist of one. Denied pain at time of admission. Given PRN Tylenol at HS for anticipated rib pain during the night which pt reports was effective. O2 sats 93-96% on 2 LPM.?
--- NOTE | 2024-07-21 08:32 | P.GSCN_ITS ---
History of Present Illness Consult details Date Seen: 07/21/24 Consult date: 07/21/24 Narrative: The patient is an 83-year-old female who presented to the emergency department yesterday with shortness of breath. She was in the [facility] with her and noted increasing shortness of breath. She was referred to the ER because of her symptoms. The patient states that she has been more short of breath over the past few weeks. The shortness of breath is with activity and rest. She states that she has fallen 4 times in the last few weeks. She states that she is not dizzy when she falls but that she simply loses her balance. She denies any loss of consciousness with any of the falls. She states that the falls have all been from standing. She states that some of the time she was able to get up on her own, however when she was not able to get up her helped her. She did not go in to be evaluated after any of these falls. She states that she fell and landed on the edge of the bathtub resulting in right-sided chest wall pain. For the pain she has been taking Tylenol and ibuprofen. Since the fall she has been more short of breath. She does have a history of congestive heart failure, TIA and diabetes. In April of 2024 she was in the ER for dizziness and was found to have possible subacute infarcts. Since admission she has been given Lasix. She feels much better and her shortness of breath has improved. She is denying any pain in her neck, head, joints, abdomen. She only has right-sided chest wall pain. She was up ambulating without difficulty. [facility] Medical History (Updated 07/21/24 @ 15:39 by Elba Albert MD) History of TIAs ?Z86.73 - Personal history of transient ischemic attack (TIA), and cerebral i nfarction without residual deficits (ICD-10) Social History What is your current living situation?: I presently have a place to live Problems where you live: no known problems Problems where you live details: n/a In the past 12 months, utilities in danger of being shut off: no In past 12 months, lack of transportation kept you from medical appts, meetings, work, or getting things needed for daily living: no In the past 12 mos, have been you worried that your food would run out before you had money to buy more?: never true In the past 12 mos, the food you bought just didn't last and you didn't have money to buy more?: never true Smoking Status: Former smoker What tobacco products do you use: cigarettes Smoking quit date/years: >15 years ago Do you use any of these nicotine containing products: None Second hand tobacco smoke exposure: No How often do you have a drink containing alcohol: 2-4 times a month How many standard drinks containing alcohol do you have on a typical day: 1 or 2 How often do you have six or more drinks on one occasion: Never AUDIT-C Alcohol total score: 2 Non-prescribed substance use: denies use How often does anyone, including family, friends and others, physically hurt you : never How often does anyone, including family, friends and others, insult or talk down to you: never How often does anyone, including family, friends and others, threaten you with harm: never How often does anyone, including family, friends and others, scream or curse at you: never service: No Meds Home Medications and Allergies Home Medications ?Medication ?Instructions ?Recorded ?Confirmed ?Type carvedilol 12.5 mg tablet 12.5 mg PO BID 07/13/24 07/20/24 History clopidogrel 75 mg tablet 75 mg PO QAM 07/13/24 07/20/24 History duloxetine 30 mg capsule,delayed 30 mg PO DAILY 07/13/24 07/20/24 History release rosuvastatin 10 mg tablet 10 mg PO QPM 07/13/24 07/20/24 History bupropion HCl 150 mg 24 hr tablet, 150 mg PO QAM 07/21/24 07/21/24 History extended release lisinopril 2.5 mg tablet 2.5 mg PO DAILY 07/21/24 07/21/24 History Allergies Allergy/AdvReac Type Severity Reaction Status Date / Time No Known Drug Allergies Allergy Verified 07/20/24 17:51 Exam Narrative: Exam Narrative: General appearance: Alert, cooperative, and in no distress Eyes: PERRLA, eye lids clear, and sclera white HENT Head: Normocephalic Ears: External ears normal Pulmonary: Lungs are clear on the left with very slight crackles at the right base. Breath sounds on the right are more faint. Large amount of ecchymosis over the right chest wall. No tenderness to palpation of the left chest wall. Cardiovascular Heart: Regular rate and rhythm Extremities: Very slight ecchymosis noted on her left knee. No tenderness to palpation or effusion. No other ecchymosis of swelling of her extremities. No pain with palpation of her joints. Spine: No midline tenderness of the cervical spine. Normal range of motion cervical spine. No midline tenderness of the thoracic or lumbar spine. Gastrointestinal Abdominal: Nontender to palpation. Neurologic: No focal deficits Psychiatric: Alert, oriented, cooperative, normal affect. Const: Vital Signs, click to edit/add: Vital Signs - 24 hr 07/20/24 16:11 07/20/24 18:17 07/20/24 20:05 Temperature 97.5 F L 96.6 F L 96.8 F L Pulse Rate Pulse Rate [Pulse Oximeter] 74 76 85 Respiratory Rate 16 18 18 Blood Pressure [Le ft Arm] Blood Pressure [Ri ght Upper Arm] 139/118 H 147/74 H 148/120 H Pulse Oximetry 95 95 91 Oxygen Delivery Me thod Room Air Room Air Nasal Cannula Oxygen Flow Rate 2 07/20/24 20:16 07/20/24 20:16 07/20/24 23:00 Temperature 96.8 F L Pulse Rate Pulse Rate [Pulse Oximeter] 77 Respiratory Rate 22 21 Blood Pressure [Le ft Arm] 160/95 H Blood Pressure [Ri ght Upper Arm] Pulse Oximetry 100 94 94 Oxygen Delivery Me thod Nasal Cannula Nasal Cannula Nasal Cannula Oxygen Flow Rate 2 2 2 07/20/24 23:00 07/20/24 23:00 07/21/24 03:00 Temperature 96.8 F L 96.8 F L Pulse Rate 65 Pulse Rate [Pulse Oximeter] 73 69 Respiratory Rate 21 19 Blood Pressure [Le ft Arm] 126/72 148/81 H Blood Pressure [Ri ght Upper Arm] Pulse Oximetry 93 96 Oxygen Delivery Me thod Nasal Cannula Nasal Cannula Oxygen Flow Rate 2 2 07/21/24 08:06 Temperature 97.8 F Pulse Rate Pulse Rate [Pulse Oximeter] 95 Respiratory Rate 20 Blood Pressure [Le ft Arm] 126/78 Blood Pressure [Ri ght Upper Arm] Pulse Oximetry 95 Oxygen Delivery Me thod Room Air Oxygen Flow Rate Results Labs Labs: Abnormal lab results 07/20/24 07/21/24 Range/Units 16:45 03:05 D-Dimer Quant (PE/DVT) 1.30 H (0.00-0.50) ug/ml VBG pCO2 39 L (40-50) mmHG C-Reactive Protein 2.4 H (0.5-1.0) mg/dL Total Protein 5.8 L (6.0-8.3) g/dL Urine Bacteria Few A (None) Diabetes panel 07/20/24 07/21/24 Range/Units 16:45 06:21 Sodium 137 138 (135-149) mmol/L Potassium 4.1 3.6 (3.6-5.1) mmol/L Chloride 105 104 (96-114) mmol/L Carbon Dioxide 23 24 (20-32) mmol/L BUN 21 17 (7-30) mg/dL Creatinine 0.7 0.8 (0.5-1.5) mg/dL Glucose 112 104 (60-115) mg/dL Calcium 8.6 8.9 (8.4-10.6) mg/dL AST 23 (12-35) U/L ALT 14 (4-35) U/L Alkaline Phosphatase 59 (40-150) U/L Total Protein 5.8 L (6.0-8.3) g/dL Albumin 3.4 (3.3-5.0) g/dL Calcium panel 07/20/24 07/21/24 Range/Units 16:45 06:21 Calcium 8.6 8.9 (8.4-10.6) mg/dL Albumin 3.4 (3.3-5.0) g/dL Pituitary panel 07/20/24 07/21/24 Range/Units 16:45 06:21 Sodium 137 138 (135-149) mmol/L Potassium 4.1 3.6 (3.6-5.1) mmol/L Chloride 105 104 (96-114) mmol/L Carbon Dioxide 23 24 (20-32) mmol/L BUN 21 17 (7-30) mg/dL Creatinine 0.7 0.8 (0.5-1.5) mg/dL Glucose 112 104 (60-115) mg/dL Calcium 8.6 8.9 (8.4-10.6) mg/dL Adrenal panel 07/20/24 07/21/24 Range/Units 16:45 06:21 Sodium 137 138 (135-149) mmol/L Potassium 4.1 3.6 (3.6-5.1) mmol/L Chloride 105 104 (96-114) mmol/L Carbon Dioxide 23 24 (20-32) mmol/L BUN 21 17 (7-30) mg/dL Creatinine 0.7 0.8 (0.5-1.5) mg/dL Glucose 112 104 (60-115) mg/dL Calcium 8.6 8.9 (8.4-10.6) mg/dL Total Bilirubin 0.8 (0.1-1.5) mg/dL AST 23 (12-35) U/L ALT 14 (4-35) U/L Alkaline Phosphatase 59 (40-150) U/L Total Protein 5.8 L (6.0-8.3) g/dL Albumin 3.4 (3.3-5.0) g/dL All other labs normal. Imaging CT scan - chest: report reviewed and image reviewed Additional studies: CTA chest 07/20/24 IMPRESSION: 1. No acute pulmonary embolism. 2. Small to moderate bilateral pleural effusions with smooth interlobular septal thickening, compatible with overall [id number] pulmonary edema. 3. Acute displaced fracture of the right 9th rib. Acute nondisplaced fractures of the right 8th, 10th, and 11th ribs. 4. There are multiple partially visualized hypodense structures about the left kidney, with the posterior collection measuring at least 9.9 cm. While nonspecific, hematomas are difficult to exclude in the setting of recent trauma. Dedicated abdominal imaging is recommended for further characterization. 5. There may be mild cardiomegaly. Consider further evaluation with an echocardiogram. These findings were discussed with Dr. Mirza at 6:58 p.m. Dictated by Bill Randle MD @ 07/20/2024 6:59:[address] brain 07/20/24: IMPRESSION: No acute intracranial abnormality. Dictated by Marino Daley MD @ 07/20/2024 5:55:23 PM Progress Note:A&P Assessment and plan (1) History of TIAs: Status: Inactive (2) Suspected cerebrovascular accident: Status: Resolved (3) Kidney hematoma: Status: Resolved (4) Acute hypoxic respiratory failure: Status: Acute (5) Acute exacerbation of chronic heart failure: Status: Deleted (6) Heart failure with reduced ejection fraction: Status: Deleted (7) Multiple fractures of ribs of right side: Status: Acute Plan The patient is an 83-year-old female with history of TIA and subacute stroke did as well as heart failure with recent falls and weakness. -imaging shows bilateral pleural effusions as well as subacute left and acute right rib fractures which occurred over 1 week ago. -there was abnormality of the left kidney with a collection noted. This could represent hematoma. Will plan on imaging with contrast today. Hemoglobin is within normal limits and has stayed stable since yesterday. -bilateral pleural effusions are likely secondary to heart failure though certainly she could have a small amount of hemothorax. Recommend diuresis. If patient develops worsening shortness of breath could consider repeat imaging and possible thoracentesis if she were to develop a worsening reactive effusion on the affected side. -PT/OT -continued workup per hospitalist for neurological causes for patients fall with MRI of the brain. -will follow-up abdominal CT. -recommend pain control and incentive spirometry for rib fractures.
[2024-07-21] MEDS: carvediloL 6.25 MG TABLET 12.5 MG PO (09:27)
[2024-07-21] MEDS: DULOXETINE 30 MG CAPSULE DR PO (09:27)
[2024-07-21] MEDS: buPROPion HCL SR 150 MG TAB PO (09:27)
[2024-07-21] MEDS: lisinopriL 5 MG TABLET 2.5 MG PO (09:27)
[2024-07-21] MEDS: CLOPIDOGREL 75 MG TABLET PO (09:27)
[2024-07-21] MEDS: FUROSEMIDE 10 MG/ML inj 40 MG IVP (09:28)
[2024-07-21] MEDS: SODIUM CHLORIDE 0.9 % (FLUSH) 10 ML SYRINGE 5 ML IVF ×2 (09:28→21:50)
--- NOTE | 2024-07-21 11:04 | CRLHL7_ITS ---
For Patients: As a result of the Century Cures Act, medical imaging exams and procedure reports are released immediately into your electronic medical record. You may view this report before your referring provider. If you have questions, please contact your health care provider. INDICATION: Left renal hypodensities. TECHNIQUE: CT abdomen and pelvis acquired with 81 cc of Isovue 370 IV contrast. COMPARISON: CT abdomen and pelvis 03/25/2010. FINDINGS: Lower chest: Bibasilar atelectasis, right greater than left. Small to moderate right and small left pleural effusions. No pericardial effusion. Coronary artery calcifications. Liver: Fatty change. No focal lesion. Spleen: Unremarkable. Pancreas: Unremarkable. Gallbladder and bile ducts: Cholecystectomy. No ductal dilatation. Kidneys: Bilateral cysts measuring up to 9.3 cm on the left have increased. No urolithiasis, hydronephrosis or suspicious lesion. Adrenal glands: Unremarkable. GI tract: Colonic diverticulosis without evidence of acute diverticulitis. No obstruction or focal inflammatory changes. Normal appendix. No free air or free fluid. Lymph nodes: No pathologic lymphadenopathy. Vascular structures: Extensive atherosclerotic disease. No abdominal aortic aneurysm. Pelvic Organs: Calcified fibroid. Adnexal regions and bladder as imaged are unremarkable. Bones: No acute or suspicious osseous abnormality. Degenerative changes spine and pelvis. IMPRESSION: 1. No acute intra-abdominal or pelvic abnormality. 2. Bilateral simple renal cysts have increased. 3. Colonic diverticulosis without evidence of acute diverticulitis. 4. Small to moderate right and small left pleural effusions with associated atelectasis. Dictated by Rah Cuellar MD @ 07/21/2024 12:20:59 PM Please note that all CT scans at this facility use dose modulation, iterative reconstruction, and/or weight-based dosing when appropriate to reduce radiation dose to as low as reasonably achievable. Dictated by: Rah Cuellar MD @ 07/21/2024 12:21:15 (Electronically Signed)
--- NOTE | 2024-07-21 15:19 | PM.IMPN1 ---
Assessment and Plan Assessment and plan (1) Acute HFrEF (heart failure with reduced ejection fraction): Problem comment: EF has dropped from 45-50% to 30-35% since May 2021 unclear cause - but new EKG findings of that are new of intraventricular (left) block noted. Trop neg. BNP 7000 without baseline. will need an ischemia workup. GDMT not in place on admission will start jardiance and sprinolactone until f/u with cards Status: Acute (2) Acute hypoxic respiratory failure: Problem comment: -patient was short of breath specially on exertion with her O2 sat going down to the 70s. -Her chest CT scan showed congestion and bilateral pleural effusions specially on the right side where the ribs were fractured which might be hemothorax. - BNP >6000 -Patient was given 1 dose of IV Lasix 40 mg and ordered an echo. -Gen Sx also were consulted by ED given that this patient has some subacute rib fractures on the right side, also discussed kidney findings. Patient's hemoglobin is good, no abdominal pain. No chest tube needed. UPDATE: No renal hematoma. No new stroke/neg brain MRI. Status: Acute (3) Multiple fractures of ribs of right side: Problem comment: -Her chest CT scan showed congestion and bilateral pleural effusions specially on the right side where the ribs were fractured which might be hemothorax. -Gen Sx also were consulted by ED given that this patient has some subacute rib fractures on the right side, also discussed kidney findings. Patient's hemoglobin is good, no abdominal pain. Status: Acute (4) Falls: Problem comment: PT OT consult Status: Acute (5) Unsteady gait: Status: Acute (6) HTN (hypertension): Problem comment: will reduce carvedilol - given acute CHF and hypotension this afternoon, continue ACEI with parameters Status: Acute (7) Weight loss: Problem comment: -no obvious malignancy; cardiac Status: Acute (8) Hyperlipidemia: Status: Acute (9) Major depression: Problem comment: continue home duloxetine and buproprion Status: Acute Subjective Date Seen: 07/21/24 Interval history: Daily Progress Note - Hospital Medicine Day #: 2 CC: Frequent falls, dizziness, acute reduced EF heart failure 24 HOUR UPDATE: Patient has diuresed well. She is not on oxygen currently. She still feels dizzy with ambulation. After her 2nd dose of IV Lasix (patient is diuretic naive) she became acutely hypotensive. We are going to hold tonlida's IV Lasix and monitor her. I would like to do orthostatics tomorrow and consider midodrine if needed. Thankfully her MRI did not show any new strokes. Thankfully her CT abdomen pelvis did not show any hematomas. Notable Labs, Micro, Rads, Interventions: VSS CBC normal VBG normal chemistry normal Abd Pelvic CT: IMPRESSION: 1. No acute intra-abdominal or pelvic abnormality. 2. Bilateral simple renal cysts have increased. 3. Colonic diverticulosis without evidence of acute diverticulitis. 4. Small to moderate right and small left pleural effusions with associated atelectasis. Brain MRI 1. No evidence of acute intracranial abnormality. 2. Moderate generalized cerebral volume loss and moderately advanced chronic microangiopathy changes. Objective: mildly dishelveled. Vitals: stable see above Lungs: Clear. Cardiac: S1S2. edema: 1+ Disposition/Potential discharge - Home with Home health Today I spent 50minutes seeing the patient, reviewing Expanse and EPIC notes/diagnostics, discussing the care plan with our care time that includes social work, PT/OT, pharmacy, RT, detention and documenting my impressions and plan in the medical record. Exam Const: Vital Signs, click to edit/add: Vital Signs - 24 hr 07/20/24 16:11 07/20/24 18:17 07/20/24 20:05 Temperature 97.5 F L 96.6 F L 96.8 F L Pulse Rate Pulse Rate [Pulse Oximeter] 74 76 85 Respiratory Rate 16 18 18 Blood Pressure [Le ft Arm] Blood Pressure [Ri ght Arm] Blood Pressure [Ri ght Upper Arm] 139/118 H 147/74 H 148/120 H Pulse Oximetry 95 95 91 Oxygen Delivery Me thod Room Air Room Air Nasal Cannula Oxygen Flow Rate 2 07/20/24 20:16 07/20/24 20:16 07/20/24 23:00 Temperature 96.8 F L Pulse Rate Pulse Rate [Pulse Oximeter] 77 Respiratory Rate 22 21 Blood Pressure [Le ft Arm] 160/95 H Blood Pressure [Ri ght Arm] Blood Pressure [Ri ght Upper Arm] Pulse Oximetry 100 94 94 Oxygen Delivery Me thod Nasal Cannula Nasal Cannula Nasal Cannula Oxygen Flow Rate 2 2 2 07/20/24 23:00 07/20/24 23:00 07/21/24 03:00 Temperature 96.8 F L 96.8 F L Pulse Rate 65 Pulse Rate [Pulse Oximeter] 73 69 Respiratory Rate 21 19 Blood Pressure [Le ft Arm] 126/72 148/81 H Blood Pressure [Ri ght Arm] Blood Pressure [Ri ght Upper Arm] Pulse Oximetry 93 96 Oxygen Delivery Me thod Nasal Cannula Nasal Cannula Oxygen Flow Rate 2 2 07/21/24 07:13 07/21/24 08:06 07/21/24 08:06 Temperature 97.8 F Pulse Rate 89 Pulse Rate [Pulse Oximeter] 95 95 Respiratory Rate 20 20 Blood Pressure [Le ft Arm] 126/78 Blood Pressure [Ri ght Arm] Blood Pressure [Ri ght Upper Arm] Pulse Oximetry 95 Oxygen Delivery Me thod Room Air Oxygen Flow Rate 07/21/24 08:06 07/21/24 13:13 07/21/24 13:16 Temperature 97.6 F Pulse Rate Pulse Rate [Pulse Oximeter] 70 87 Respiratory Rate 20 20 Blood Pressure [Le ft Arm] 97/49 L Blood Pressure [Ri ght Arm] 68/43 L Blood Pressure [Ri ght Upper Arm] Pulse Oximetry 95 92 Oxygen Delivery Me thod Room Air Room Air Oxygen Flow Rate 07/21/24 13:17 07/21/24 14:12 Temperature Pulse Rate Pulse Rate [Pulse Oximeter] 87 91 Respiratory Rate Blood Pressure [Le ft Arm] 77/52 L 114/66 Blood Pressure [Ri ght Arm] Blood Pressure [Ri ght Upper Arm] Pulse Oximetry Oxygen Delivery Me thod Oxygen Flow Rate Labs Labs: Laboratory Results - last 24 hr 07/20/24 07/21/24 07/21/24 16:45 03:05 06:21 WBC 6.75 7.22 RBC 4.46 4.61 Hgb 13.2 13.5 Hct 40.0 41.3 MCV 90 90 MCH 30 29 MCHC 33 33 RDW Coeff of Leonardo 13.9 Plt Count 200 188 Neut % (Auto) 66.7 Lymph % (Auto) 24.1 [place] % (Auto) 7.6 Eos % (Auto) 1.3 Baso % (Auto) 0.3 Neut # (Auto) 4.50 Lymph # (Auto) 1.63 [place] # (Auto) 0.50 Eos # (Auto) 0.09 Baso # (Auto) 0.02 Abs Immat Gran (auto) 0.00 Imm/Tot Granulo (auto) 0.0 D-Dimer Quant (PE/DVT) 1.30 H VBG pH 7.417 VBG pCO2 39 L VBG pO2 35.3 VBG HCO3 25 Sodium 137 138 Potassium 4.1 3.6 Chloride 105 104 Carbon Dioxide 23 24 Anion Gap 9 10 BUN 21 17 Creatinine 0.7 0.8 Estimated Creat Clear 35.88 35.88 Estimated GFR 86 74 Glucose 112 104 Lactate 1.1 Calcium 8.6 8.9 Magnesium 1.9 Total Bilirubin 0.8 AST 23 ALT 14 Alkaline Phosphatase 59 Troponin I 0.02 C-Reactive Protein 2.4 H NT-Pro-B Natriuret Pep 6940 Total Protein 5.8 L Albumin 3.4 Urine Color Yellow Urine Appearance Clear Urine pH 5.5 Ur Specific [place] <= 1.005 Urine Protein Negative Urine Glucose (UA) Negative Urine Ketones Negative Urine Blood Negative Urine Nitrite Negative Urine Bilirubin Negative Urine Urobilinogen 0.2 Ur Leukocyte Esterase Negative Urine RBC 0-2 Urine WBC 2-5 Ur Squamous Epith Cells Few Urine Bacteria Few A SARS-CoV-2 (PCR) Negative SARS-CoV-2 Influenza Type A (PCR) Negative PCR FLU A Influenza Type B (PCR) Negative PCR FLU B RSV (PCR) Negative PCR RSV
--- NOTE | 2024-07-21 15:41 | PC.SOCIAL ---
Discharge planning: licensed social worker attempted to meet with pt today x2 and pt was either resting or with other disciplines for testing. Pt will be staying in the hospital again tonight. Per PT, pt will not need a TCU for short-term rehab. licensed social worker will check-in with the pt tomorrow. Social work to follow-up as needed.
[2024-07-21] MEDS: ROSUVASTATIN CALCIUM 10 MG TABLET PO (18:07)
--- NOTE | 2024-07-21 18:27 | PC.NURSE ---
End of Shift: Patient pleasant and cooperative, alert and oriented. Patient hypotensive at times but stable, lungs with crackles, BS WNL, IV SL and intact. Patient denies pain. Patient tolerating regular diet, and urinating well, No BM today. Patient currently in sating in the low 90s but sats drop to low 80s on and off and once oxygen is administered than she no longer needs. Patient right hip dressing C/D/I. Patient is incontinent of bowel and bladder and had 1 BM.
--- NOTE | 2024-07-21 18:38 | PC.NURSE ---
End of Shift: Patient pleasant and cooperative. Patient hypotensive but stable, lungs with crackles, BS WNL, IV SL and intact. Patient has SOB with ambulation at times, but on RA. Patient denies pain, urinating well but incontinent, no BM. Patient 1 assist/walker. Patient tolerating regular diet, and up in chair majority of day. Tele=A.fib.
[2024-07-21] MEDS: ENOXAPARIN 40 MG/0.4 ML INJ SUBCUT (21:50)
[2024-07-22] VITALS (11 sets, daily range): BP systolic 102–154; BP diastolic 66–95; PULSE 88–111; RESP 20–28; TEMP 36.3–37; O2SAT 91–94
[2024-07-22] MEDS: ACETAMINOPHEN 325 MG TABLET 650 MG PO (04:31)
[2024-07-22 06:10] LABS: HCO3 VBG 28 mmol/L (21-28); PCO2 VBG 43 mmHG (40-50); PO2 VBG 31.7 mmHG (25-47); pH VBG 7.419 (7.32-7.43)
[2024-07-22 06:14] LABS: Hematocrit 41.9 % (33.0-51.0); Hemoglobin* 13.6 gm/dL (12.0-16.0); Mean Corpuscular HGB Conc 33 gm/dL (32-36); Mean Corpuscular Hemoglobin 29 pg (26-34); Mean Corpuscular Volume 90 fL (80-100); Platelet Count* 211 K/uL (140-440); Red Blood Count 4.65 m/uL (4.00-5.20); White Blood Count* 8.88 K/uL (4.50-11.00)
[2024-07-22 06:19] LABS: Slide Review Reflex No
[2024-07-22 06:25] LABS: Chloride* 101 mmol/L (96-114); Sodium* 137 mmol/L (135-149)
[2024-07-22 06:28] LABS: Anion Gap 10 mEq/L (7-15); Blood Urea Nitrogen* 24 mg/dL (7-30); Carbon Dioxide* 26 mmol/L (20-32); Creatinine* 0.9 mg/dL (0.5-1.5); Est. Creatinine Clearance* 35.88; Estimated Glomerular Filt Rate 64 ml/min
[2024-07-22 06:29] LABS: Glucose* 197 mg/dL (60-115); Magnesium* 1.8 mg/dL (1.5-2.6)
--- NOTE | 2024-07-22 06:40 | PC.NURSE ---
Shift note ([id number]): Patient pleasant, alert and oriented. Pivot transferred to bedside commode with walker, gait belt and assist of one. Given PRN Tylenol for c/o rib pain rated 8/10. O2 sats 91-93% on room air.?
[2024-07-22 06:41] LABS: NT Pro B Type NatriureticPept* 6230 pg/mL
--- NOTE | 2024-07-22 06:45 | PC.NURSE ---
Shift note ([id number]): Patient pleasant, alert and oriented. Pivot transferred to bedside commode with walker, gait belt and assist of one. Given PRN Tylenol for c/o rib pain rated 8/10. O2 sats 91-93% on room air.?
[2024-07-22] MEDS: TORSEMIDE 20 MG TABLET 5 MG PO (08:32)
[2024-07-22] MEDS: SPIRONOLACTONE 25 MG TABLET 12.5 MG PO (08:33)
[2024-07-22] MEDS: EMPAGLIFLOZIN 10 MG TABLET 5 MG PO (08:34)
[2024-07-22] MEDS: DULOXETINE 30 MG CAPSULE DR PO (08:35)
[2024-07-22] MEDS: buPROPion XL 150 MG TABLET PO (08:35)
[2024-07-22] MEDS: CLOPIDOGREL 75 MG TABLET PO (08:35)
[2024-07-22] MEDS: SACUBITRIL 24 mg/VALSARTAN 26 mg TABLET 1 TAB PO ×2 (08:36→21:13)
[2024-07-22] MEDS: SODIUM CHLORIDE 0.9 % (FLUSH) 10 ML SYRINGE 5 ML IVF ×2 (08:37→21:14)
[2024-07-22] MEDS: carvediloL 6.25 MG TABLET 3.125 MG PO ×2 (09:00→21:13)
--- NOTE | 2024-07-22 11:01 | PC.SOCIAL ---
Addendum entered by CELENA Jimenez 07/22/24 14:36: Discharge planning: [facility] called this worker and stated that they are at capacity for home care services in the [place] area and are declining the referral. electrical lineworker sent a referral to [facility] #[phone], fax number #[phone]. [facility] called back and said they could open the pt for services on Thursday, July 27 and would just need a delay of start of services order. The provider on duty approved the start of home care services for 07/27/2024 and this worker faxed the updated home care orders to [facility] at fax number #[phone]. electrical lineworker informed the pt and her family and they were pleased with this news. Social work to follow-up as needed. Addendum entered by CELENA Jimenez 07/22/24 11:54: Discharge planning: Home care referral sent to [facility] at fax number #[phone]. Social work to follow-up as needed. Original Note: Discharge planning: Pt is being recommended for home care services, PT, OT, fpc and RESIDENTIAL PROGRAM COORDINATOR. Pt is also being recommended for a home safety evaluation with OT. electrical lineworker met with pt and her daughter, Carolyn, and provided them with the [facility] list for their review. They would like for this worker to look into [facility]. electrical lineworker will reach out to [facility] to see if they have availability. Pt's PCP, Dr. Henry, is through [facility] in [place]. Social work to follow-up as needed.
--- NOTE | 2024-07-22 15:34 | P.IMPN_ITS ---
Assessment and Plan Assessment and plan (1) Acute HFrEF (heart failure with reduced ejection fraction): Problem comment: EF has dropped from 45-50% to 30-35% since May 2021 -echo 07/21/2024 showed LVEF estimate 30-35%. Preserved RV function. No valvular abnormalities. Normal RAP. No effusion. unclear cause of the acute failure - but new EKG findings of that are new of intraventricular (left) block noted. Trop neg. BNP 7000 without baseline. will need an ischemia workup. GDMT not in place on admission - will reduce coreg, stop ARB and SALLIE, start entresto, jardiance and sprinolactone in low doses. -will refer to cards for outpatient consultation Status: Acute (2) Acute hypoxic respiratory failure: Problem comment: -patient was short of breath specially on exertion with her O2 sat going down to the 70s with EMS -Her chest CT scan showed congestion and bilateral pleural effusions specially on the right side where the ribs were fractured which might be hemothorax. - BNP >6000 -UPDATE: No renal hematoma. No new stroke/neg brain MRI. off oxygen. Status: Acute (3) Kidney hematoma: Problem comment: -f/u dedicated CT of renals shows simple cysts -CT showed left kidney fluid collection that could be hematoma in the setting of multiple traumas. -Radiology did recommend the triple phase renal protocol which will need to be done tomorrow. This does not need to happen emergently. Status: Resolved (4) Multiple fractures of ribs of right side: Problem comment: -Her chest CT scan showed congestion and bilateral pleural effusions specially on the right side where the ribs were fractured which might be hemothorax. -Gen Sx also were consulted by ED given that this patient has some subacute rib fractures on the right side, also discussed kidney findings. Patient's hemoglobin is good, no abdominal pain. Status: Acute (5) Falls: Problem comment: PT OT consult Status: Acute (6) Weight loss: Problem comment: -no obvious malignancy; cardiac Status: Acute (7) HTN (hypertension): Problem comment: management changes with GDMT Status: Acute (8) Major depression: Problem comment: continue home duloxetine and buproprion Status: Acute (9) Hyperlipidemia: Status: Acute (10) History of TIAs: Problem comment: Plavix 75mg daily Status: Inactive Subjective Date Seen: 07/22/24 Interval history: Daily Progress Note - Hospital Medicine #: 3 CC: Frequent falls, dizziness, acute reduced EF heart failure 24 HOUR UPDATE: Patient has diuresed well. She is not on oxygen currently. She still feels dizzy with ambulation. Yesterday we held her evening coreg and IV lasix. Thankfully her MRI did not show any new strokes. Thankfully her CT abdomen pelvis did not show any hematomas. Notable Labs, Micro, Rads, Interventions: VSS CBC normal VBG normal chemistry normal BNP [id number]: IMPRESSION: 1. No acute intra-abdominal or pelvic abnormality. 2. Bilateral simple renal cysts have increased. 3. Colonic diverticulosis without evidence of acute diverticulitis. 4. Small to moderate right and small left pleural effusions with associated atelectasis. Brain MRI 1. No evidence of acute intracranial abnormality. 2. Moderate generalized cerebral volume loss and moderately advanced chronic microangiopathy changes. Objective: mildly dishelveled. Vitals: stable see above Lungs: Clear. Cardiac: S1S2. edema: 1+ Disposition/Potential discharge - Home with Home health Today I spent 50minutes seeing the patient, reviewing Expanse and EPIC notes/diagnostics, discussing the care plan with our care time that includes social work, PT/OT, pharmacy, RT, intermediate and documenting my impressions and plan in the medical record. Exam Const: Vital Signs, click to edit/add: Vital Signs - 24 hr 07/21/24 16:14 07/21/24 16:14 07/21/24 16:14 Temperature 98.7 F Pulse Rate Pulse Rate [Pulse Oximeter] 95 95 Pulse Rate [orthos tatic lying] 83 Pulse Rate [orthos tatic sitting] 95 Pulse Rate [orthos tatic standing] 34 L Respiratory Rate 20 20 Blood Pressure [Le ft Arm] 89/54 L Blood Pressure [or thostatic lying Le ft Arm] 104/80 Blood Pressure [or thostatic sitting Left Arm] 89/54 L Blood Pressure [or thostatic standing Left Arm] 86/49 L Pulse Oximetry 90 Oxygen Delivery Me thod Room Air 07/21/24 16:14 07/21/24 17:30 07/21/24 19:00 Temperature 97.4 F L Pulse Rate 51 L Pulse Rate [Pulse Oximeter] 90 Pulse Rate [orthos tatic lying] Pulse Rate [orthos tatic sitting] Pulse Rate [orthos tatic standing] Respiratory Rate 20 22 Blood Pressure [Le ft Arm] 109/63 Blood Pressure [or thostatic lying Le ft Arm] Blood Pressure [or thostatic sitting Left Arm] Blood Pressure [or thostatic standing Left Arm] Pulse Oximetry 90 93 Oxygen Delivery Me thod Room Air Room Air 07/21/24 22:10 07/21/24 22:12 07/21/24 23:00 Temperature 97.7 F Pulse Rate 83 Pulse Rate [Pulse Oximeter] 86 Pulse Rate [orthos tatic lying] Pulse Rate [orthos tatic sitting] Pulse Rate [orthos tatic standing] Respiratory Rate 17 17 Blood Pressure [Le ft Arm] 121/80 Blood Pressure [or thostatic lying Le ft Arm] Blood Pressure [or thostatic sitting Left Arm] Blood Pressure [or thostatic standing Left Arm] Pulse Oximetry 91 91 Oxygen Delivery Ky thod Room Air Room Air 07/22/24 02:46 07/22/24 07:00 07/22/24 07:54 Temperature 98.6 F Pulse Rate 92 92 Pulse Rate [Pulse Oximeter] 94 Pulse Rate [orthos tatic lying] Pulse Rate [orthos tatic sitting] Pulse Rate [orthos tatic standing] Respiratory Rate 20 Blood Pressure [Le ft Arm] 118/91 H Blood Pressure [or thostatic lying Le ft Arm] Blood Pressure [or thostatic sitting Left Arm] Blood Pressure [or thostatic standing Left Arm] Pulse Oximetry 93 Oxygen Delivery Ky thod Room Air 07/22/24 08:27 07/22/24 08:27 07/22/24 08:27 Temperature 98.6 F Pulse Rate Pulse Rate [Pulse Oximeter] 97 97 Pulse Rate [orthos tatic lying] Pulse Rate [orthos tatic sitting] Pulse Rate [orthos tatic standing] Respiratory Rate 20 20 20 Blood Pressure [Le ft Arm] 154/95 H Blood Pressure [or thostatic lying Le ft Arm] Blood Pressure [or thostatic sitting Left Arm] Blood Pressure [or thostatic standing Left Arm] Pulse Oximetry 92 92 Oxygen Delivery Ky thod Room Air Room Air 07/22/24 11:00 07/22/24 15:02 07/22/24 15:02 Temperature 97.8 F 97.4 F L Pulse Rate Pulse Rate [Pulse Oximeter] 88 98 98 Pulse Rate [orthos tatic lying] Pulse Rate [orthos tatic sitting] Pulse Rate [orthos tatic standing] Respiratory Rate 28 H 22 22 Blood Pressure [Le ft Arm] 102/66 119/81 Blood Pressure [or thostatic lying Le ft Arm] Blood Pressure [or thostatic sitting Left Arm] Blood Pressure [or thostatic standing Left Arm] Pulse Oximetry 94 91 Oxygen Delivery Me thod Room Air Room Air 07/22/24 15:05 07/22/24 15:16 Temperature Pulse Rate 88 Pulse Rate [Pulse Oximeter] Pulse Rate [orthos tatic lying] Pulse Rate [orthos tatic sitting] Pulse Rate [orthos tatic standing] Respiratory Rate 22 Blood Pressure [Le ft Arm] Blood Pressure [or thostatic lying Le ft Arm] Blood Pressure [or thostatic sitting Left Arm] Blood Pressure [or thostatic standing Left Arm] Pulse Oximetry 91 Oxygen Delivery Me thod Room Air Labs Labs: Laboratory Results - last 24 hr 07/22/24 06:05 WBC 8.88 RBC 4.65 Hgb 13.6 Hct 41.9 MCV 90 MCH 29 MCHC 33 Plt Count 211 VBG pH 7.419 VBG pCO2 43 VBG pO2 31.7 VBG HCO3 28 Sodium 137 Potassium 4.0 Chloride 101 Carbon Dioxide 26 Anion Gap 10 BUN 24 Creatinine 0.9 Estimated Creat Clear 35.88 Estimated GFR 64 Glucose 197 H Calcium 9.0 Magnesium 1.8 NT-Pro-B Natriuret Pep 62
[2024-07-22] MEDS: ROSUVASTATIN CALCIUM 10 MG TABLET PO (17:55)
--- NOTE | 2024-07-22 18:23 | PC.NURSE ---
End of Shift: Patient pleasant and cooperative, alert and oriented. Patient vitally stable, lungs with fine crackles and right lower lobe diminished, BS WNL, IV SL and intact. Patient denies pain. Patient tolerating regular diet, urinating, and had 2 loose stool. Patient does not report when she is wet. Patient spend majority of day up in chair. Patient tele=A.fib.
[2024-07-22] MEDS: ENOXAPARIN 40 MG/0.4 ML INJ SUBCUT (21:12)
[2024-07-22] MEDS: carvediloL 25 MG TABLET 3.125 MG PO (23:22)
[2024-07-23 03:00] VITALS: BP 138/80; PULSE 90; RESP 20; TEMP 36.5; O2SAT 93
[2024-07-23] MEDS: ACETAMINOPHEN 325 MG TABLET 650 MG PO (03:02)
[2024-07-23 06:00] VITALS: BP 126/78; BP 134/85; BP 150/82; PULSE 87; PULSE 93; PULSE 94
[2024-07-23 06:21] LABS: HCO3 VBG 26 mmol/L (21-28); PCO2 VBG 36 mmHG (40-50); PO2 VBG 49.7 mmHG (25-47); pH VBG 7.462 (7.32-7.43)
[2024-07-23 06:28] LABS: Hematocrit 42.4 % (33.0-51.0); Hemoglobin* 13.8 gm/dL (12.0-16.0); Mean Corpuscular HGB Conc 33 gm/dL (32-36); Mean Corpuscular Hemoglobin 29 pg (26-34); Mean Corpuscular Volume 90 fL (80-100); Platelet Count* 207 K/uL (140-440); Red Blood Count 4.73 m/uL (4.00-5.20); White Blood Count* 9.14 K/uL (4.50-11.00)
[2024-07-23 06:34] LABS: Slide Review Reflex No
[2024-07-23 06:41] LABS: Chloride* 101 mmol/L (96-114); Potassium* 3.8 mmol/L (3.6-5.1); Sodium* 133 mmol/L (135-149)
[2024-07-23 06:44] LABS: Anion Gap 8 mEq/L (7-15); Blood Urea Nitrogen* 21 mg/dL (7-30); Calcium* 8.8 mg/dL (8.4-10.6); Carbon Dioxide* 24 mmol/L (20-32); Creatinine* 0.7 mg/dL (0.5-1.5); Est. Creatinine Clearance* 35.88; Estimated Glomerular Filt Rate 86 ml/min; Glucose* 132 mg/dL (60-115); Magnesium* 1.8 mg/dL (1.5-2.6)
--- NOTE | 2024-07-23 06:47 | PC.NURSE ---
End of shift [id number]: Pt AxOx4, pleasant, and cooperative with cares. Pt reported pain to the ribs that was managed with prn medication and reposition. Pt incontinent/continent of the bladder. SBA GOYO W. Brief and sheets changed. Pt able to sleep for majority of the night. Pt appears resting with call light in reach. Bed alarm set in place.
[2024-07-23 07:00] VITALS: BP 143/95; PULSE 76; PULSE 84; PULSE 93; RESP 20; TEMP 36.6; O2SAT 93
[2024-07-23 07:26] LABS: Hemoglobin A1C* 6.2 % (0-5.6)
[2024-07-23] MEDS: DULOXETINE 30 MG CAPSULE DR PO (09:19)
[2024-07-23] MEDS: SPIRONOLACTONE 25 MG TABLET 12.5 MG PO (09:19)
[2024-07-23] MEDS: buPROPion XL 150 MG TABLET PO (09:19)
[2024-07-23] MEDS: TORSEMIDE 20 MG TABLET 5 MG PO (09:19)
[2024-07-23] MEDS: SACUBITRIL 24 mg/VALSARTAN 26 mg TABLET 1 TAB PO (09:19)
[2024-07-23] MEDS: carvediloL 6.25 MG TABLET PO (09:19)
[2024-07-23] MEDS: EMPAGLIFLOZIN 10 MG TABLET 5 MG PO (09:20)
[2024-07-23] MEDS: SODIUM CHLORIDE 0.9 % (FLUSH) 10 ML SYRINGE 5 ML IVF (09:20)
[2024-07-23] MEDS: CLOPIDOGREL 75 MG TABLET PO (09:20)
--- NOTE | 2024-07-23 09:43 | P.DS_ITS ---
DS: Providers Provider Time Seen by Provider: 09:36 Date Seen: 07/23/24 Date of admission: 07/20/24 20:09 Primary care physician: Cindy Henry DO Admitting Clinician: Brielle Tang MD Consults: 07/20/24 21:10 Consult to Occupational Therapy [CONS] Routine Comment: Reason(s) for OT Consult:: Evaluate and Treat Any Restrictions?:: No Restrictions Consult to Physical Therapy [CONS] Routine Comment: Reason(s) for PT Consult:: Evaluate and Treat Any Restrictions?:: No Restrictions Attending Physician on discharge: Yareli Rodriguez MD Date of Discharge: 07/23/24 DS: Diagnosis Discharge Diagnosis (1) Acute hypoxic respiratory failure: Status: Acute Problem details: -patient was short of breath specially on exertion with her O2 sat going down to the 70s with EMS -Her chest CT scan showed congestion and bilateral pleural effusions specially on the right side where the ribs were fractured which might be hemothorax. - BNP >6000 - 07/23 satting well on RA, Hgb stable, no renal hematoma. (2) Acute HFrEF (heart failure with reduced ejection fraction): Status: Acute Problem details: EF has dropped from 45-50% to 30-35% since May 2021 -echo 07/21/2024 showed LVEF estimate 30-35%. Preserved RV function. No valvular abnormalities. Normal RAP. No effusion. unclear cause of the acute failure - but new EKG findings of that are new of intraventricular (left) block noted. Trop neg. BNP 7000 without baseline. will need an ischemia workup. GDMT not in place on admission - will reduce coreg, stop ARB and SALLIE, start entresto, jardiance and sprinolactone in low doses. 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 If BP remains elevated by outpatient visit on Thursday, this could be increased back to 12.5mg BID. (4) Kidney hematoma: Status: Ruled-out Problem details: -f/u dedicated CT of renals shows simple cysts -CT showed left kidney fluid collection that could be hematoma in the setting of multiple traumas. -Radiology did recommend the triple phase renal protocol which will need to be done tomorrow. This does not need to happen emergently. -UPDATE: No renal hematoma on renal protocol. No new stroke/neg brain MRI. off oxygen. (5) Multiple fractures of ribs of right side: Status: Acute Problem details: -Her chest CT scan showed congestion and bilateral pleural effusions specially on the right side where the ribs were fractured which might be hemothorax. -Gen Sx also were consulted by ED given that this patient has some subacute rib fractures on the right side, also discussed kidney findings. Patient's hemoglobin is good, no abdominal pain. (6) Falls: Status: Acute Problem details: PT OT recommended home PT OT, already set up for discharge. (7) Weight loss: Status: Acute Problem details: -no obvious malignancy; suspect cardiac (8) Unsteady gait: Status: Acute Problem details: - PT OT evaluated. Continue with home health PT OT as outpatient (9) Hyperlipidemia: Status: Chronic Problem details: - continue rosuvastatin (10) Major depression: Status: Chronic Problem details: continue home duloxetine and buproprion (11) HTN (hypertension): Status: Chronic Problem details: - now on carvedilol, Entresto, spironolactone, torsemide DS: Summary Hospital Course Hospital Course: NOTE TO PCP: Consider outpatient referral to cardiology for new CHF, new afib, s/p ablation 2011 for PSVT. Per H&P: Rach Moore is a 83 year old female with past medical history of hypertension, congestive heart failure, paroxysmal supraventricular tachycardia, TIA, diabetes and multiple falls who presents to the ED after she was advised by a nurse to visit ED due to worsening gait, dizziness and 2 recent falls with the last 1 on July 13 that had led to multiple rt ribs fractures 10-24. Patient also mentioned that she started to have shortness of breath for about a week this shortness of breath was also associated with symptoms of orthopnea all started a week ago. In addition patient lost 20lb of weight over the past 3-4 months. It is worthy to note that the patient was here in April 2024 for dizziness and MRI at that time showed 2 punctate hyperintense foci on diffusion- weighted imaging in the right occipital lobe and left frontal lobe consistent with subacute infarcts. Distribution raises concern for embolic etiology. At the ED, patient was short of breath specially on exertion with her O2 sat going down to the 70s. Her chest CT scan showed congestion and bilateral pleural effusions specially on the right side where the ribs were fractured which might be hemothorax. And showed left kidney fluid collection that could be hematoma in the setting of multiple traumas. BNP >6000 ED doctor contacted tele neuro of who states that it is better to follow up with another brain MRI without contrast. Patient was given 1 dose of IV Lasix 40 mg and ordered an echo. Gen Sx also were consulted by ED given that this patient has some subacute rib fractures on the right side, also discussed kidney findings. Patient's hemoglobin is good, no abdominal pain. Radiology did recommend the triple phase renal protocol which will need to be done tomorrow. This does not need to happen emergently. She was admitted and started on diuresis with IV furosemide. She was orthostatic and acutely hypotensive for which furosemide was briefly held and coreg was markedly decreased. BP improved and she was able to restart furosemide. Entresto and spironolactone were started for HFrEF, as noted on ECHO done, results as above. Lisinopril was stopped. She tolerated these new medications well. HR was elevated yesterday, and EKG showed afib. Patient has h/o PSVT in 2010 for which she had ablation that year. No h/o afib. She has been on clopedogril for h/o TIAs. Discussion with daughter, Carolyn, and patient today about new finding of new afib, ECHO results, anticoagulation instead of clopidogrel, risk of bleeding. They were agreeable with starting apixaban for afib. Rate is well controlled today with coreg at half of usual outpatient dose. She will f/u with her PCP in two days (as previously scheduled) with Hgb, BMP. If her BP remains elevated, consideration could be given to increasing coreg back to previous dose for tighter HR control. Recommend outpatient cardiology referral for new CHF, new afib. PT and OT evaluated during this hospital stay and patient is discharged with referral for home health services. Please see diagnoses above for full details. Time Spent with Patient Time attestation: Total time spent providing and/or coordinating discharge services: Today I spent 35 minutes seeing the patient, complaining the discharge, reviewing E xpanse and EPIC notes/diagnostics/labs, discussing the care plan with our care team that includes social work, PT/OT, pharmacy, RT, mcc and documenting my impressions and plan in the medical record. Exam Narrative: Exam Narrative: General: No acute distress. Awake, alert, oriented x3. No pallor. No jaundice. Oropharynx: Clear. Mucous membranes moist. Cardiovascular: Regular rate and rhythm. No murmurs, gallops, or rubs. Respiratory: Fine bibasilar crackles. Otherwise clear. No wheezes. Abdomen: Bowel sounds present. Soft, nondistended, nontender. Extremities: 1+ bilateral lower extremity pitting edema. Const: Vital Signs, click to edit/add: Vital Signs - 24 hr 07/22/24 11:00 07/22/24 15:02 07/22/24 15:02 Temperature 97.8 F 97.4 F L Pulse Rate Pulse Rate [Pulse Oximeter] 88 98 98 Pulse Rate [orthos tatic lying] Pulse Rate [orthos tatic sitting] Pulse Rate [orthos tatic standing] Respiratory Rate 28 H 22 22 Blood Pressure [Le ft Arm] 102/66 119/81 Blood Pressure [or thostatic lying Le ft Arm] Blood Pressure [or thostatic sitting Left Arm] Blood Pressure [or thostatic standing Left Arm] Pulse Oximetry 94 91 Oxygen Delivery Me thod Room Air Room Air 07/22/24 15:05 07/22/24 15:16 07/22/24 19:00 Temperature 98.6 F Pulse Rate 88 Pulse Rate [Pulse Oximeter] 88 Pulse Rate [orthos tatic lying] Pulse Rate [orthos tatic sitting] Pulse Rate [orthos tatic standing] Respiratory Rate 22 20 Blood Pressure [Le ft Arm] 124/84 Blood Pressure [or thostatic lying Le ft Arm] Blood Pressure [or thostatic sitting Left Arm] Blood Pressure [or thostatic standing Left Arm] Pulse Oximetry 91 91 Oxygen Delivery Me thod Room Air Room Air 07/22/24 22:21 07/22/24 23:00 07/22/24 23:00 Temperature 98.6 F Pulse Rate 111 H Pulse Rate [Pulse Oximeter] 97 Pulse Rate [orthos tatic lying] Pulse Rate [orthos tatic sitting] Pulse Rate [orthos tatic standing] Respiratory Rate 20 20 Blood Pressure [Le ft Arm] 125/83 Blood Pressure [or thostatic lying Le ft Arm] Blood Pressure [or thostatic sitting Left Arm] Blood Pressure [or thostatic standing Left Arm] Pulse Oximetry 93 93 Oxygen Delivery Me thod Room Air Room Air 07/23/24 03:00 07/23/24 06:00 07/23/24 07:00 Temperature 97.7 F Pulse Rate 76 Pulse Rate [Pulse Oximeter] 90 Pulse Rate [orthos tatic lying] 87 Pulse Rate [orthos tatic sitting] 93 Pulse Rate [orthos tatic standing] 94 Respiratory Rate 20 Blood Pressure [Le ft Arm] 138/80 Blood Pressure [or thostatic lying Le ft Arm] 134/85 Blood Pressure [or thostatic sitting Left Arm] 150/82 H Blood Pressure [or thostatic standing Left Arm] 126/78 Pulse Oximetry 93 Oxygen Delivery Me thod Room Air 07/23/24 07:00 07/23/24 07:00 Temperature 97.9 F Pulse Rate Pulse Rate [Pulse Oximeter] 84 Pulse Rate [orthos tatic lying] Pulse Rate [orthos tatic sitting] Pulse Rate [orthos tatic standing] Respiratory Rate 20 Blood Pressure [Le ft Arm] 143/95 H Blood Pressure [or thostatic lying Le ft Arm] Blood Pressure [or thostatic sitting Left Arm] Blood Pressure [or thostatic standing Left Arm] Pulse Oximetry 93 93 Oxygen Delivery Me thod Room Air Room Air DS: Data Data Completed and Pending Completed studies during hospitalization: 07/20/2024 EKG: Normal sinus rhythm, 70 beats per minute, left axis deviation, nonspecific intraventricular block. 07/21/2024 EKG: Atrial fibrillation, 87 beats per minute, right axis deviation. Nonspecific intraventricular block. 07/21/2024 EKG: Atrial fibrillation. LVEF estimate 30-35%. Normal LV size and wall thickness. Preserved RV function. No significant valvular abnormalities. Normal RAP estimate. No pericardial effusion. Ordering Physician: Radha Garcia M.D. Date of Service: 07/20/24 Procedure(s): XR ribs RT min 3V w CXR1V Accession Number(s): [id number] cc: Cindy Henry D.O.; Radha Garcia M.D.~ For Patients: As a result of the Cures Act, medical imaging exams and procedure reports are released immediately into your electronic medical record. You may view this report before your referring provider. If you have questions, please contact your health care provider. INDICATION: Ongoing rib pain, feels shortness of breath today, injury TECHNIQUE: Chest radiograph, Rib radiographs 4 views right COMPARISON: 07/13/2024 FINDINGS: The sensitivity and specificity of the exam are moderately limited by the patient`s body habitus. Mediastinum: The central pulmonary arteries are near the upper limits of normal in size. Mild cardiomegaly is noted. A calcified right paratracheal lymph node is present from prior granulomatous disease. Lung: Small lung volumes are present with mild pulmonary vascular congestion, perihilar and bibasilar atelectasis seen. A small right pleural effusion is present which may be due to hemothorax in the setting of trauma. No pneumothorax is identified. Ribs and bones: Acute fractures of the right 8th-11th ribs are noted. The remaining osseous structures are unremarkable for age. Soft tissue: Surgical clips are noted in the right upper quadrant from prior cholecystectomy. IMPRESSIONS: 1. Acute fractures of the right 8th-11th ribs are noted. The appearance is similar to prior exam. 2. Small lung volumes are present with mild pulmonary vascular congestion, perihilar and bibasilar atelectasis seen. 3. A small right pleural effusion is present which may be due to hemothorax in the setting of trauma. 4. Mild cardiomegaly is noted. Dictated by Kirk Mancera MD @ 07/20/2024 5:47:12 PM Dictated by: Kirk Mancera MD @ 07/20/2024 17:47:17 (Electronically Signed) Ordering Physician: Radha Garcia M.D. Date of Service: 07/20/24 Procedure(s): CT head/brain wo con Accession Number(s): [id number] cc: Cindy Henry D.O.; Radha Garcia M.D.~ For Patients: As a result of the Cures Act, medical imaging exams and procedure reports are released immediately into your electronic medical record. You may view this report before your referring provider. If you have questions, please contact your health care provider. INDICATION: DIZZINESS, RECENT FALLS, ON PLAVIX TECHNIQUE: CT of the head was performed without IV contrast. COMPARISON: 04/22/2024, 04/10/2020. FINDINGS: Parenchyma: No acute hemorrhage, infarction, or mass. Moderate confluent periventricular white matter hypoattenuation is nonspecific and is favored to represent chronic small vessel ischemic disease. Suspected small left inferior frontal meningioma. Ventricles and extra-axial spaces: Moderate involutional changes. Visualized paranasal sinuses: Clear. Mastoid air cells: Clear. Bones: No focal abnormality. Additional comment: Bilateral lens surgery. IMPRESSION: No acute intracranial abnormality. Please note that all CT scans at this facility use dose modulation, iterative reconstruction, and/or weight-based dosing when appropriate to reduce radiation dose to as low as reasonably achievable. Dictated by Marino Daley MD @ 07/20/2024 5:55:23 PM (Electronically Signed) Ordering Physician: Radha Garcia M.D. Date of Service: 07/20/24 Procedure(s): CT angio chest PE protocol Accession Number(s): [id number] cc: Cindy Henry D.O.; Radha Garcia M.D.~ For Patients: As a result of the 21st Century Cures Act, medical imaging exams and procedure reports are released immediately into your electronic medical record. You may view this report before your referring provider. If you have questions, please contact your health care provider. INDICATION: RECENT FALL, ELEVATED D-DIMER, SOB. TECHNIQUE: CT chest PE was acquired with 95 cc Isovue 370 IV contrast. MIP reformations provided COMPARISON: None. FINDINGS: Heart and vasculature: Contrast opacification of the pulmonary arterial tree is adequate. No sign of pulmonary embolism. There may be mild cardiomegaly. Coronary artery calcifications. Thoracic aorta is normal in caliber. Lungs: Mild dependent atelectasis adjacent to the pleural effusions. Smooth interlobular septal thickening. No definite suspicious pulmonary nodules. Apical predominant [id number] centrilobular emphysema. Pleura: Small to moderate bilateral pleural effusions. No pneumothorax. Lymph nodes/mediastinum: No mediastinal, hilar, or axillary adenopathy. Chest wall: There is extensive soft tissue swelling/stranding about the acute rib fractures. Upper abdomen: There are hypodense lobulated structures anterior, lateral, and posterior to the left kidney, which are incompletely evaluated. For reference, the posterior collection measures at least 9.9 x 5.6 cm. Visualized thyroid gland: Diffusely enlarged. No discretely visualized actionable nodules, though streak artifact limits evaluation. Bones: Acute nondisplaced fractures of the right posterior 8th, 10th, and 11th ribs. Acute displaced fracture of the right 9th rib. There are subacute-chronic appearing fractures of the left 6th, 7th, 8th, and 9th ribs. IMPRESSION: 1. No acute pulmonary embolism. 2. Small to moderate bilateral pleural effusions with smooth interlobular septal thickening, compatible with overall [id number] pulmonary edema. 3. Acute displaced fracture of the right 9th rib. Acute nondisplaced fractures of the right 8th, 10th, and 11th ribs. 4. There are multiple partially visualized hypodense structures about the left kidney, with the posterior collection measuring at least 9.9 cm. While nonspecific, hematomas are difficult to exclude in the setting of recent trauma. Dedicated abdominal imaging is recommended for further characterization. 5. There may be mild cardiomegaly. Consider further evaluation with an echocardiogram. These findings were discussed with Dr. Mirza at 6:58 p.m. Please note that all CT scans at this facility use dose modulation, iterative reconstruction, and/or weight-based dosing when appropriate to reduce radiation dose to as low as reasonably achievable. Dictated by Bill Randle MD @ 07/20/2024 6:59:57 PM (Electronically Signed) Ordering Physician: Radha Garcia M.D. Date of Service: 07/21/24 Procedure(s): MR head/brain wo con Accession Number(s): [id number] cc: Cindy Henry D.O.; Radha Garcia M.D.~ For Patients: As a result of the 21st Century Cures Act, medical imaging exams and procedure reports are released immediately into your electronic medical record. You may view this report before your referring provider. If you have questions, please contact your health care provider. Indication: Worsening dizziness, gait imbalance Technique: Multiplanar, multisequence MRI of the brain obtained without contrast. Comparison: CT head 07/20/2024, MRI brain 04/22/2024 Findings: The ventricles and cortical sulci are diffusely prominent, most compatible with generalized cerebral volume loss. Focal and confluent regions of FLAIR hyperintensity are present throughout the cerebral white matter and central jagdish, typical for chronic microangiopathy. No acute/subacute ischemia, intracranial hemorrhage, or abnormal extra-axial fluid collection. Predominantly empty sella configuration. Preserved major intracranial arterial flow voids. Normal calvarial marrow signal. No obstructive paranasal sinus disease or significant mastoid effusion. Bilateral lens implants. Impression: 1. No evidence of acute intracranial abnormality. 2. Moderate generalized cerebral volume loss and moderately advanced chronic microangiopathy changes. Dictated by Sabrina Loyola MD @ 07/21/2024 11:56:38 AM (Electronically Signed) Ordering Physician: Elba Albert M.D. Date of Service: 07/21/24 Procedure(s): CT abdomen pelvis w con Accession Number(s): [id number] cc: Cindy Henry D.O.; Elba Albert M.D.~ For Patients: As a result of the Cures Act, medical imaging exams and procedure reports are released immediately into your electronic medical record. You may view this report before your referring provider. If you have questions, please contact your health care provider. INDICATION: Left renal hypodensities. TECHNIQUE: CT abdomen and pelvis acquired with 81 cc of Isovue 370 IV contrast. COMPARISON: CT abdomen and pelvis 03/25/2010. FINDINGS: Lower chest: Bibasilar atelectasis, right greater than left. Small to moderate right and small left pleural effusions. No pericardial effusion. Coronary artery calcifications. Liver: Fatty change. No focal lesion. Spleen: Unremarkable. Pancreas: Unremarkable. Gallbladder and bile ducts: Cholecystectomy. No ductal dilatation. Kidneys: Bilateral cysts measuring up to 9.3 cm on the left have increased. No urolithiasis, hydronephrosis or suspicious lesion. Adrenal glands: Unremarkable. GI tract: Colonic diverticulosis without evidence of acute diverticulitis. No obstruction or focal inflammatory changes. Normal appendix. No free air or free fluid. Lymph nodes: No pathologic lymphadenopathy. Vascular structures: Extensive atherosclerotic disease. No abdominal aortic aneurysm. Pelvic Organs: Calcified fibroid. Adnexal regions and bladder as imaged are unremarkable. Bones: No acute or suspicious osseous abnormality. Degenerative changes spine and pelvis. IMPRESSION: 1. No acute intra-abdominal or pelvic abnormality. 2. Bilateral simple renal cysts have increased. 3. Colonic diverticulosis without evidence of acute diverticulitis. 4. Small to moderate right and small left pleural effusions with associated atelectasis. Dictated by Rah Cuellar MD @ 07/21/2024 12:20:59 PM Please note that all CT scans at this facility use dose modulation, iterative reconstruction, and/or weight-based dosing when appropriate to reduce radiation dose to as low as reasonably achievable. Dictated by: Rah Cuellar MD @ 07/21/2024 12:21:15 (Electronically Signed) Labs on day of discharge: Labs from last 24 hours 07/23/24 05:54 WBC 9.14 RBC 4.73 Hgb 13.8 Hct 42.4 MCV 90 MCH 29 MCHC 33 Plt Count 207 VBG pH 7.462 H VBG pCO2 36 L VBG pO2 49.7 H VBG HCO3 26 Sodium 133 L Potassium 3.8 Chloride 101 Carbon Dioxide 24 Anion Gap 8 BUN 21 Creatinine 0.7 Estimated Creat Clear 35.88 Estimated GFR 86 Glucose 132 H Hemoglobin A1c 6.2 H Calcium 8.8 Magnesium 1.8 TSH 1.450 Discharge Plan Discharge Disposition: Home, Self-Care Date of Admission: 07/20/24 20:09 Attending Provider on Discharge: Yareli Rodriguez Primary Care Provider: Cidny Henry Condition: Improved Anticipated Discharge Date/Time: 07/23/24 10:36 Discharge Medications: New carvedilol 6.25 mg Tablet 6.25 mg PO BID Qty: 60 0RF torsemide 20 mg Tablet 5 mg PO DAILY@0800 Qty: 30 0RF spironolactone 25 mg Tablet 12.5 mg PO DAILY Qty: 30 0RF Jardiance 10 mg Tablet 5 mg PO DAILY Qty: 30 0RF Entresto 24-26 mg Tablet 1 tab PO BID Qty: 60 0RF apixaban 5 mg tablet 5 mg PO BID Qty: 60 2RF Continued duloxetine 30 mg capsule,delayed release(DR/EC) 30 mg PO DAILY rosuvastatin 10 mg tablet 10 mg PO QPM bupropion HCl 150 mg tablet extended release 24 hr 150 mg PO QAM Discontinued clopidogrel 75 mg tablet 75 mg PO QAM carvedilol 12.5 mg tablet 12.5 mg PO BID lisinopril 2.5 mg tablet 2.5 mg PO DAILY Discharge Orders: Discharge Order (Routine); Ordered 07/23/24 Ordered By: Yareli Rodriguez Patient Education: Spironolactone (By mouth), Torsemide (By mouth), Carvedilol (By mouth), Apixaban (By mouth), Empagliflozin (By mouth), Sacubitril/Valsartan (By mouth) Additional Instructions: Weigh yourself every morning on the same scale when you get up, after use the bathroom, before you eat. Wear similar clothing each time you weigh yourself.? Keep track of your weight. Call your doctor if you gain more than 2 pounds in a day, or 5 pounds in a week.? Home health care for PT, OT, mcc, [employer]ER. Activity Level: Activity as Tolerated Discharge Diet: Regular Follow Up Appointments: Cindy Henry DO [Primary Care Provider] - (Thursday (already scheduled) Also needs Hgb, BMP) Forms: MyHealth Info Instructions
[2024-07-23 11:00] VITALS: BP 113/73; PULSE 93; RESP 20; TEMP 36.9; O2SAT 92
--- NOTE | 2024-07-23 13:17 | PC.NURSE ---
Discharge Summary: Patient pleasant and cooperative. Afebrile. Denies pain. O2 sats greater than 90% on room air. Tele showing a-fib with heart rate in the 80-90s. Up with SBA and walker. Tolerating regular diet with no nausea. Patient discharged home at 1300 with all personal belongings accompanied by family. Discharge instructions including diagnosis, medications and follow up appointment discussed with patient and voiced understanding. New CHF discharge bag/information given to patient.
== END 2024-07-23 13:00 | disposition home or self-care (01) | DRG 291 ==
LOC: ED 17:31 → MEDSURG 20:09
PROVIDERS: Family Medicine; Admitting Provider Student in an Organized Health Care Education/Training Program; Emergency Provider Family Medicine; PCP Family Medicine; Visit Provider Student in an Organized Health Care Education/Training Program
DX: I11.0 Hypertensive heart disease with heart failure (principal); I50.23 Acute on chronic systolic (congestive) heart failure; S27.1XXA Traumatic hemothorax, initial encounter; J96.01 Acute respiratory failure with hypoxia; S22.41XA Multiple fractures of ribs, right side, initial encounter for closed fracture; S37.012A Minor contusion of left kidney, initial encounter; F32.9 Major depressive disorder, single episode, unspecified; R26.81 Unsteadiness on feet; R63.4 Abnormal weight loss; I44.7 Left bundle-branch block, unspecified; W19.XXXA Unspecified fall, initial encounter; Z91.81 History of falling; Z86.73 Personal history of transient ischemic attack (TIA), and cerebral infarction without residual deficits; E78.5 Hyperlipidemia, unspecified; Z87.891 Personal history of nicotine dependence; I48.91 Unspecified atrial fibrillation; Z79.02 Long term (current) use of antithrombotics/antiplatelets; E11.9 Type 2 diabetes mellitus without complications; Z79.84 Long term (current) use of oral hypoglycemic drugs
CPT/HCPCS: 36415; 70450; 70551; 71101; 71275; 74177; 80048; 80053; 81001; 82803; 83036; 83605; 83735; 83880; 84443; 84484; 85025; 85027; 85379; 86140; 87086; 87631; 93005; 93306; 94761; 97116; 97161; 97165; 97530; 97535; 99285; A9270; J1650; J1938; J7030; Q9967; S0106

== ENCOUNTER 2024-08-11 12:49 | Outpatient (CLI) | payer MEDICARE, SELFPAY | END 2024-08-11 12:50 | disposition home or self-care (01) | PROVIDERS: PCP Family Medicine; Visit Provider Student in an Organized Health Care Education/Training Program | DX: R47.81 Slurred speech (principal) | CPT/HCPCS: A0425; A0429 ==

== ENCOUNTER 2024-08-11 13:15 | Emergency (ER) | payer MEDICARE, SELFPAY ==
[2024-08-11] VITALS (18 sets, daily range): BP systolic 102–129; BP diastolic 58–88; PULSE 66–86; RESP 18–24; TEMP 35.8–36.7; O2SAT 93–97
--- OUTSIDE RECORDS SUMMARY | 2024-08-11 13:18 | XMS_ITS | Clinical Summary ---
Author Organization [employer] [facility] Address Formerly [facility], later [facility] [place] [address] Care Team Providers Care Brim Blocker Name Role Phone Cuco Sandoval MD Unavailable [phone] Curtis Liu Unavailable Unavailable Evy Renteria MD Unavailable [phone] Cindy Henry DO Primary Care Provider [phone] Allergies No known active allergies Medications acetaminophen (TYLENOL EXTRA STRGTH) 500 mg tablet Take 1 tablet by mouth every 6 hours if needed. Max acetaminophen dose: 4000mg in 24 hrs. 0 12/04/19 10 Active True Metrix Glucose Test Strip stripIndications: Controlled type 2 diabetes mellitus with complication, without long-term current use of insulin (HC) TEST ONE TIME DAILY 100 Each 4 01/30/20 21 Active TRUEplus Lancets 33 gauge miscIndications:C ontrolled type 2 diabetes mellitus with complication, without long-term current use of insulin (HC) TEST ONE TIME DAILY 100 Each 01/30/20 21 Active medication order composer vitamin b12 and vitamin d3 0 12/09/19 23 Active carvediloL (COREG) 12.5 mg tabletIndications :HTN (hypertension) Take 1 Tablet (12.5 mg) by mouth two times daily with meals. 180 Tablet 3 02/05/20 24 Active DULoxetine (CYMBALTA) 30 mg [...] daily. 48 g 3 02/05/20 24 Active rosuvastatin (Crestor) 10 mg tabletIndications :Mixed hyperlipidemia Take 1 Tablet (10 mg) by mouth at bedtime. 90 Tablet 4 02/05/20 24 Active Walker - 4 wheelsIndications :Orthostatic hypotension,Loss of balance,Diabetic mononeuropathy associated with diabetes mellitus due to underlying condition (HC) For home use. Length of need: 99 seated walker. 1 Each 03/30/19 25 Active buPROPion 150 mg Extended-Release tabletIndications :Depression, major, single episode, mild,Anxiety Take 1 Tablet (150 mg) by mouth once daily in the morning. 90 Tablet 3 06/02/19 25 Active ENTRESTO 24 MG-26 MG TABLET 24-26 mg tabletIndications :HFrEF (heart failure with reduced ejection fraction) (HC) Take 1 Tablet by mouth two times daily. 07/30/19 25 Active Eliquis 5 mg tablet Take 1 Tablet (5 mg) by mouth two times daily. 07/30/19 25 Active torsemide 5 mg tabletIndications :HFrEF (heart failure with reduced ejection fraction) (HC) Take 5 mg (1 tablet) by mouth once daily NEEDED for weight gain, shortness of breath. 07/30/19 25 Active Jardiance 10 mg tabletIndications :HFrEF (heart failure with reduced ejection fraction) (HC) Take 1 Tablet (10 mg) by mouth once daily. 90 Tablet 3 08/06/19 25 Active spironolactone 25 mg tabletIndications :HFrEF (heart failure with reduced ejection fraction) (HC) Take 0.5 Tablets (12.5 mg) by mouth once daily. 45 Tablet 3 08/12/19 25 Active loratadine (CLARITIN) 10 mg tabletIndications :Other allergic rhinitis Take 1 tablet by mouth once daily. 0 04/11/19 16 025 Discontin ued(*Crystal ent states no longer taking) ibuprofen (ADVIL; MOTRIN) 200 mg tablet Every 6 Hours as needed Discontin ued(*Med complete/ Regimen complete/ Level of care change) medication order composer vitamin d3 0 12/09/19 025 Discontin ued(*Crystal ent states no longer taking) clopidogreL (PLAVIX) 75 mg tabletIndications :Transient cerebral ischemia, unspecified type Take 1 Tablet (75 mg) by mouth once daily in the morning. 90 Tablet 4 02/05/20 24 025 Discontin ued(*Crystal ent states no longer taking) lisinopriL (PRINIVIL; ZESTRIL) 2.5 mg tabletIndications :HTN (hypertension),Ty pe 2 diabetes mellitus with diabetic neuropathy, without long-term current use of insulin (HC) Take 1 Tablet (2.5 mg) by mouth once daily. 90 Tablet 4 02/05/20 24 025 Discontin ued(*Crystal ent states no longer taking) Jardiance 10 mg tablet 07/24/19 025 Discontin ued(*Medi cation adjustmen t) ENTRESTO 24 MG-26 MG TABLET 24-26 mg tablet 07/24/19 025 Discontin ued(*Medi cation adjustmen t) spironolactone 25 mg tablet 07/24/19 25 025 Discontin ued(*Medi cation adjustmen t) torsemide 5 mg tablet 07/24/19 25 025 Discontin ued(*Med complete/ Regimen complete/ Level of care change) Eliquis 5 mg tablet 07/24/19 025 Discontin ued(*Medi cation adjustmen t) Jardiance 10 mg tablet Take 1 Tablet (10 mg) by mouth once daily. 07/30/19 025 Discontin ued(Reord er (E-cancel not sent)) spironolactone 25 mg tabletIndications :HFrEF (heart failure with reduced ejection fraction) (HC) Take 1 Tablet (25 mg) by mouth once daily. 07/30/19 25 025 Discontin ued(*Medi cation adjustmen t) spironolactone 25 mg tabletIndications :HFrEF (heart failure with reduced ejection fraction) (HC) Take 0.5 Tablets (12.5 mg) by mouth once daily. 45 Tablet 3 08/06/19 25 025 Discontin ued(*Medi cation adjustmen t) spironolactone 25 mg tabletIndications :HFrEF (heart failure with reduced ejection fraction) (HC) Take 1 Tablet (25 mg) by mouth once daily. 45 Tablet 3 08/12/19 25 025 Discontin ued(*Erro r/data entry coordinator error) Active Problems Problem Noted Date Diagnosed Date Depression, major, single episode, mild 08/11/19 Overview (08/10/2024): -bupropion started 02/05/24 History of meningioma 08/10/2024 Overview (08/10/2024): -07/21/24 Brain MRI ([facility]), per radiologist report: Impression: 1. No evidence of acute intracranial abnormality. 2. Moderate generalized cerebral volume loss and moderately advanced chronic microangiopathy changes. -previously followed by Neurology, [facility] -per 12/10/21 Neurology Bonnie Valle MD (resident) note: ASSESSMENT / PLAN #1 Meningioma Brain I have ordered an MRI for 3 months from now for monitoring of the meningioma, note that she does have a history of breast cancer though I suspect that this is a meningioma. If this is unchanged she will likely be appropriate for a repeat MRI 1 year after that. -per 12/10/21 Neurology Yimi Cota DO note: Incidental meningioma We recommended a follow-up brain MRI with contrast in three months for the very small chance this could be growing more rapidly than expected. After that consider another follow- up in 1-2 years. Type 2 diabetes mellitus with albuminuria 2024 Overview (08/10/2024): -DM2 on empagliflozin (Jardiance) -07/23/24 A1C 6.2% -02/05/24 ACR 102, per 02/12/24 Cindy Henry DO results medical message: The results show slight increase in the amount of protein you are spilling in your urine we will continue to monitor this with a recheck in 6 to 12 months. This indicates effects on your kidneys from your diabetes. -12/08/22 ACR 44.8 -07/21/24 CT abd/pelvis ([facility], scan), per radiologist report: Kidneys: Bilateral cysts measuring up to 9.3 cm on the left have increased. No urolithiasis, hydronephrosis or suspicious lesion. Impression Bilateral simple renal cysts have increased. (Comparison CT abd/pelvis used was 03/25/2010) Chronic anticoagulation 07/29/2024 Coronary artery disease invo lving igiugig coronary artery of igiugig heart without angina pectoris 07/29/2024 Atrial fibrillation 07/29/2024 Overview (08/10/2024): -on apixaban and carvedilol, scheduled for cardioversion 08/26/24 -managed by Cardiology -07/29/24 EKG atrial fibrillation -new diagnosis during hospitalization 07/20/24-07/23/24 ([facility]) HFrEF (heart failure with reduced ejection fract ion) 07/29/2024 Overview (08/09/2024): -managed by Cardiology -07/21/24 Echo LVEF 30-35% -per 07/29/24 Cardiology Rah Hodge MD note: HFrEF (heart failure with reduced ejection fraction) Recent hospitalization at [facility] earlier this month for acute on chronic heart failure exacerbation. Etiology not entirely certain. Possibly due to atrial fibrillation which is a new diagnosis for her. She had nonobstructive CAD on angiogram in 2021. Centrilobular emphysema 07/20/2024 Overview (08/09/2024): -former smoker -noted 07/20/[address] angio chest ([facility]), per radiologist report: Apical predominant [id number] centrilobular emphysema. -hospitalized 07/20/24-07/23/24 ([facility]) and per discharge summary had acute hypoxic respiratory failure inpatient, per discharge summary: patient was short of breath especially on exertion with her O2 sat going down to the 70s with EMS Her chest CT scan showed congestion and bilateral pleural effusions.. 07/23 satting well on RA (did not discharge on oxygen) Abnormal stress test 05/30/2021 Acquired absence of other left toe(s) 04/13/2021 History of left breast cancer 04/13/2021 Overview (08/09/2024): -last mammogram noted 2021 (see below) -04/24/21 mammogram-right breast asymmetry noted, with 05/02/21 right breast U/S revealing per radiologist report: Benign oil cyst RIGHT breast. No evidence of malignancy. 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 Treatment: 10 years status post lumpectomy, sentinel node biopsy, 4 cycles of adjuvant AC (Adriamycin and cyclophosphamide) chemotherapy, breast radiation therapy. No current treatment. Impression Clinically stable, with no evidence of recurrence. Plan f/u with primary care with yearly exam and mammograms Toe amputation status, left 02/08/2018 Onychomycosis 11/24/2017 Onychomycosis 10/01/2016 Atherosclerosis of igiugig artery of lower extrem ity 08/16/2016 Innominate [...] CPR/Attempt Resuscitation Osteopenia 08/20/2012 Orthostatic hypotension 01/28/2011 History of paroxysmal supraventricular tachycard ia 01/28/2011 Overview (02/12/2011): S/P EPS with AVNRT ablation with Dr Swenson 02/12/2011 B12 deficiency 01/15/2011 Fall 01/11/2011 Syncope 01/11/2011 Hypotension 01/11/2011 Bradycardia 01/11/2011 HTN (hypertension) 04/24/2010 Mixed hyperlipidemia 04/24/2010 Type 2 diabetes mellitus wit h diabetic neuropathy, without long-term current use of insulin 04/18/2010 Overview (08/10/2024): DM2 on empagliflozin (Jardiance), on duloxetine for neuropathy (previously on gabapentin per [facility] notes) -07/23/24 A1C 6.2% (inpatient [facility]) -per 07/25/24 Cindy Henry DO note: She has known coronary vascular disease with subclavian artery stenosis and peripheral artery disease and type 2 diabetes long-term with diabetic neuropathy.. -per 03/23/24 Podiatry Chencho Quinones DPM note: Does have neuropathy. Doesn't have much feeling in her feet. Admits that she doesn't check her blood sugars regularly. A1C on 02/04/21 was 6.4. Neurological: Sensation is diminished bilaterally. Resolved Problems Problem Noted Date Diagnosed Date Resolved Date Chronic heart failure, unspe cified heart failure type 12/08/2022 08/09/2024 Diabetic ulcer of toe of lef t foot associated with type 2 diabetes mellitus, limited to breakdown of skin 02/08/2018 07/26/2024 Osteomyelitis of toe of left foot 02/08/2018 12/08/2022 Controlled type 2 diabetes m ellitus with complication, without long-term current use of insulin 11/20/2017 08/10/2024 Severe obesity (BMI 35.0-39. 9) with comorbidity 01/15/2016 06/01/2024 DM neuropathy, type II diabetes mellitus 04/24/2010 11/20/2017 Gallstone pancreatitis 04/08/201006/24 Chronic osteomyelitis of right foot 12/08/2022 Diabetic ulcer of right midf oot associated with type 2 diabetes mellitus, with fat layer exposed 07/26/2024 Encounters Date Type Department Care Team Description 08/05/2024 Telephone [facility] [address] [place] [address] Rah Hodge MD Medication Management (Signed Medication List) 08/04/2024 Telephone [facility] [address] [place] [address] Cindy Henry DO Form (Medication List) 07/29/2024 9:30 AM CDT Office Visit [facility] [address] [place] [address] Rah Hodge MD Consult (New pt consult / New onset a-fib, Acute systolic CHF, PAD/ KENNEY Ref by Cindy Henry DO. Echo 07/21. /Pt states feeling SOB and low BP. ) 07/29/2024 Orders Only [facility] [address] [place] [address] Rah Hodge MD <No scans attached> 07/28/2024 Telephone [facility] [address] [place] [address] Cindy Henry DO Outside Order 07/28/2024 Travel 07/26/2024 Telephone [facility] [address] [place] [address] Cindy Henry DO Results 07/25/2024 1:00 PM CDT Office Visit [facility] [address] [place] [address] Cindy Henry DO Hospital F/U (loss of balance and SHORTNESS OF BREATH /A-fib) 07/25/2024 Travel 07/22/2024 Transcribe Orders [facility] [address] [place] [address] Radha Godfrey MD 07/21/2024 3:00 PM CDT Ancillary Procedure [facility] [address] [place] [address] 07/21/2024 Orders Only [facility] Scanner 1 scan: (1-Ord) [facility], CT ABDOMEN PELVIS W CON, 07/21/2024 07/21/2024 Orders Only [facility] Scanner 1 scan: (1-Ord) [facility], HEAD/BRAIN WO, 07/21/2024 07/21/2024 Office Visit [facility] [address] [place] [phone] Saqib Noble MBBS Telehealth (balance issues) 07/20/2024 Orders Only [facility] Scanner 1 scan: (1-Ord) [facility], ANGIO CHEST PE PROTOCOL, 07/20/2024 07/20/2024 Orders Only [facility] Scanner 1 scan: (1-Ord) [place], XR RIBS RT MIN 3V W CXR1V, 07/20/2024 07/20/2024 Orders Only [facility] Scanner 1 scan: (1-Ord) [facility], HEAD/BRAIN W/O CONTRAST, 07/20/2024 07/20/2024 Office Visit [facility] [address] [place] [phone] Eleanor Patton MD Telehealth ([facility] - telephone triage note only) 07/20/2024 Nurse Triage [facility] [address] [place] [address] Cindy Henry DO Dizziness; Slurred Speech; Weight 07/13/2024 Nurse Triage [facility] [address] [place] [address] Cindy Henry DO Chest Injury 06/01/2024 1:00 PM CDT Office Visit [facility] [address] [place] [address] Cindy Henry DO Depression; Breathing Problem (getting worse) 06/01/2024 Travel from Last 3 Months Immunizations Immunization Administration Dates Next Due COVID-19 VACCINE SPIKEVAX (M ODERNA 50MCG/0.5ML) 12YO+ PFS 02/05/2024 COVID-19 vaccine (Nevro-Bio NTech 30mcg/0.3mL) PFDAMARI 12/19/2020,07/16/2020,06/25/2020 Influenza RIV4 (Age 18+ Year s) [...] Alcohol Use Standard Drinks/Week Comments Not Currently 0 (1 standard drink = 0.6 oz pure alcohol) 1 drink per month when palying bingo. 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 Gender Identity Not on file Sexual Orientation [...] Sign Reading Time Taken Comments Blood Pressure 94/60 07/29/2024 9:28 AM CDT Pulse 80 07/29/2024 9:28 AM CDT Temperature 36.5 C (97.7 F) 02/05/2024 11:24 AM SCIENCE TECHNICIAN Respiratory Rate 16 06/12/2021 7:42 AM CDT Oxygen Saturation 99% 07/29/2024 9:28 AM CDT Inhaled Oxygen Concentration - - Weight 77.4 kg (170 lb 9.6 oz) 07/29/2024 9:28 A M CDT Height 158.2 cm (5' 2.3) 07/29/2024 9:28 AM CDT Body Mass Index 30.9 07/29/2024 9:28 AM CDT Plan of Treatment Upcoming Encounters Date Type Department Care Team (Late st Contact Info) Description 08/12/2024 11:05 AM CDT Office Visit [facility] [address] [place] [address] Cindy Henry DO [address] [place] [address] 08/26/2024 9:30 AM CDT Office Visit [address] [place] [address] Norberto Crespo MD [address] [address] 08/26/2024 11:00 AM CDT Hospital Encounter [address] [address] Norberto Crespo MD [address] [address] 08/26/2024 11:00 AM CDT - 08/26/2024 11:40 AM CDT Surgery [address] [address] Norberto Crespo MD [address] [address] CARDIOVERSION 09/05/2024 1:00 PM CDT Office Visit [facility] [address] [place] [address] Cindy Henry DO [address] [place] [address] 11/11/2024 11:00 AM CDT Ancillary Procedure [address] [place] [address] Scheduled Procedures Name Priority Associated Diagnoses Date/Ti me CARDIOVERSION afib 08/26/2024 11:00 AM CDT Health Maintenance Due Date Last Done Comments Zoster (shingles) series for age 50+ (2 of 3) 06/07/2012 04/12/2012 Tetanus booster 08/20/2022 08/20/2012, 05/14, 08/14/1990 COVID-19 vaccine series ( season) 2024 02/05/2024, 04/30/2023, 12/09/2021, Additional history exists Medicare Wellness for age 65+ 02/05/2025 02/05/2024, 12/08/2022, 04/10/2021, Additional history exists Depression screening for age 12+ 06/01/2025 06/01/2024, 05/04/2024, 03/30/2024, Additional history exists BMI (ht and wt on same day) for age 18+ 07/29/2025 07/29/2024, 05/04/2024, 02/05/2024, Additional history exists Tdap Completed 08/20/2012 DEXA/DXA scan for age 65+ Completed 2012, 07/12/2010, 06/28/2010 (Postponed) Pneumococcal series for age 50+ Completed 09/11/2014, 01/13/2011, 06/28/2010, Additional history exists RSV vaccine for adults or Completed 04/30/2023 Influenza Vaccine Completed 02/05/2024, , 12/19/2020, Additional history exists Hepatitis B series for 19+ Aged Out N o longer eligible based on patient's age to complete this topic Procedures Procedure Name Priority Date/Time Associated Diagnosis Comments EKG 12 LEAD Routine 07/29/2024 9:54 AM CDT Atrial fibrillation, unspecified type (HC) BASIC METABOLIC PANEL Routine 07/25/2024 2:46 PM CDT Type 2 diabetes mellitus with diabetic neuropathy, without long-term current use of insulin (HC) Depression, major, single episode, mild New onset a-fib (HC) ECHO TTE COMPLETE WO CONTRAST Routine 07/21/2024 10:41 AM CDT Dizziness Abnormality of gait due to impairment of balance CHF (congestive heart failure) (HC) SCAN-CT INTERPRETATION 12:00 AM CDT SCAN-MRI INTERPRETATION 07/21/2024 12:00 AM CDT SCAN-CT INTERPRETATION 12:00 AM CDT SCAN-RADIOLOGY REPORT 07/20/2024 12:00 AM CDT SCAN-CT INTERPRETATION 12:00 AM CDT XR DXA BONE DENSITY 2 SITES AXIAL Routine 08/24/2012 2:20 PM CDT Osteopenia from Last 3 Months or Most Recently Relevant to Health Maintenance Results * EKG 12 LEAD (07/29/2024 9:54 AM CDT) Pathologist [facility] Interpretation Atrial fibrillation Non-specific intra-ventricul ar conduction block Abnormal ECG When compared with ECG of 11-Jun-2021 10:38, Atrial fibrillation has replaced Sinus rhythm Questionable change in QRS duration Ventricular Rate 74 BPM Atrial Rate BPM P-R Interval ms QRS Duration 160 ms QT 464 ms QTc 515 ms P Spiro degrees R Spiro 146 degrees T Spiro 4 degrees 07/29/2024 9:54 AM CDT 07/29/2024 1:24 PM CDT Rah Hodge MD EKG ORD Final Res ult * (ABNORMAL) BASIC METABOLIC PANEL (07/25/2024 2:46 PM CDT) Pathologist [facility] GLUCOSE 130(H) 65 - 99 mg/dL [facility] Comment: Fasting reference interval For someone without known diabetes, a glucose value >125 mg/dL indicates that they may have diabetes and this should be confirmed with a follow-up test. UREA NITROGEN (BUN) 30(H) 7 - 25 mg/dL [facility] CREATININE 0.97(H) 0.60 - 0.95 mg/dL [facility] EGFR 58(L) > OR = 60 mL/min/1.7 3m2 [facility] BUN/CREATININE RATIO 31(H) 6 - 22 (calc) [facility] SODIUM 140 135 - 146 mmol/L [facility] POTASSIUM 4.0 3.5 - 5.3 mmol/L [facility] CHLORIDE 103 98 - 110 mmol/L [facility] CARBON DIOXIDE 27 20 - 32 mmol/L [facility] ELECTROLYTE BALANCE 10 7 - 17 mmol/L (calc) [facility] CALCIUM 9.1 8.6 - 10.4 mg/dL [facility] Blood BLOOD SPECIMEN / Unknown 07/25/2024 2:46 PM CDT 07/25/2024 2:46 PM CDT us Cindy Cano Detert DO CHEMISTRY Final Resul t [facility] [address] [place] [address], [facility] [address] [place] [address] * ECHO TTE COMPLETE WO CONTRAST (07/21/2024 10:41 AM CDT) AORTIC VALVE MEAN PG 4 mmHg EJECTION FRACTION 37 % LVEDD 5.5 cm EJECTION FRACTION 30 - 35% Anatomical Region Laterality Modality Ultrasound 07/21/2024 10:0 8 AM CDT Narrative 07/21/2024 11:18 AM CDT ECHOCARDIOGRAM RACH MITCHELL : 1940 83 years Study Date: 07/21/2024 10:08:48 AM Gender: F BP: 126/78 mmHg Height: 160.00 cm BSA: 1.78 m Weight: 75.00 kg Tech: [facility] Referring MD: RADHA GODFREY Site: [facility] Reading Location: Mobile- Patient Location: Inpatient. Procedure: 2D, Color Doppler and Spectral Doppler. Indication for study: CHF,Dizziness Cardiac Rhythm: Atrial fibrillation.Study quality: Fair. Final Impressions: 1. LVEF estimate 30-35%. Normal LV size and wall thickness. 2. Preserved RV function. 3. No significant valvular abnormalities. 4. Normal RAP estimate. 5. No pericardial effusion. Chamber Sizes and Function Normal left ventricular size, normal wall thickness, moderately reduced global systolic function with an estimated EF of 30 - 35%. There is moderate global left ventricular hypokinesis. No resting regional wall motion abnormality visualized. Left atrial size is normal. Left atrial pressure is normal. Right ventricular cavity size is normal, global systolic RV function is normal. The right atrium is normal. Right atrial volume index is 12 ml/m . Right atrial area is 12 cm . The pulmonary artery is not well visualized. The sinus of Valsalva is normal sized. The ascending aorta is normal sized. Valves, RV Pressures and Diastolic Function The aortic valve is normal in structure and trileaflet, no stenosis and no regurgitation. The mitral valve is sclerotic, trace mitral regurgitation. Mitral annular calcification is present. Indeterminate pattern of LV diastolic filling. The tricuspid valve is normal in structure, trace tricuspid regurgitation. The pulmonic valve is not well visualized. No pulmonary regurgitation. Masses, Effusion, Shunts There is no pericardial effusion. The inferior vena cava is normal sized, respiratory size variation greater than 50%. No left to right shunting was detected by limited color flow Doppler interrogation of the interatrial septum. MEASUREMENTS AND CALCULATIONS 2-D Measurements and LV Function: LVID (d) 5.4 cm LV FS% (2D) 29 % LVID (s) 3.8 cm LVOT diameter 2.1 cm IVS (d) 0.9 cm HR 90 bpm LVPW (d) 1.1 cm LA Vol index 19 ml/m2 Ao Sinus 3.0 cm RA Vol index 12 ml/m2 Ao Sinus ULN 3.7 cm * RA area 12 cm Asc Ao 3.9 cm RV Basal Diam 2.4 cm Asc Ao ULN 4.0 cm * LA 4.0 cm * Input age outside of range, reported values correspond to Age = 81 Diastology: Mitral Tissue Doppler E Peak 0.9 m/s e', Septum 0.05 m/s DT 182 msec e', Lateral 0.07 m/s E/e' Average 15.76 Aortic Valve: Vmax 1.2 m/s JACKELINE (V) 3.08 cm VTI 0.25 m JACKELINE (I) 2.19 cm LVOT V max 1.1 m/s Max PG 6 mmHg LVOT VTI 0.16 m Mean PG 4 mmHg SV 55 ml Dim Index 0.65 SV index 31 ml/m CO 4.9 l/min CI 2.8 l/min/m Mitral Valve: MVA 4.2 cm MV P 1/2 53 msec Tricuspid Valve and estimated PA pressures: TAPSE 2.0 cm Pulmonic Valve: PV AT 78 msec . This study was interpreted by an [facility] accredited facility. CC: Med/Surg - IP [facility], [facility] (med records) [facility]. Final Procedure Note Tal Wisdom MD - 07/21/2024 ECHOCARDIOGRAM RACH MITCHELL : 1940 83 years Study Date: 07/21/2024 10:08:48 AM Gender: F BP: 126/78 mmHg Height: 160.00 cm BSA: 1.78 m Weight: 75.00 kg Tech: [facility] Referring MD: RADHA GODFREY Site: [facility] Reading Location: Mobile-IP Patient Location: Inpatient. Procedure: 2D, Color Doppler and Spectral Doppler. Indication for study: CHF,Dizziness Cardiac Rhythm: Atrial fibrillation.Study quality: Fair. Final Impressions: 1. LVEF estimate 30-35%. Normal LV size and wall thickness. 2. Preserved RV function. 3. No significant valvular abnormalities. 4. Normal RAP estimate. 5. No pericardial effusion. Chamber Sizes and Function Normal left ventricular size, normal wall thickness, moderately reducedglobal systolic function with an estimated EF of 30 - 35%. There ismoderate global left ventricular hypokinesis. No resting regional wallmotion abnormality visualized. Left atrial size is normal. Left atrialpressure is normal. Right ventricular cavity size is normal, globalsystolic RV function is normal. The right atrium is normal. Right atrialvolume index is 12 ml/m . Right atrial area is 12 cm . The pulmonaryartery is not well visualized. The sinus of Valsalva is normal sized. Theascending aorta is normal sized. Valves, RV Pressures and Diastolic Function The aortic valve is normal in structure and trileaflet, no stenosis and noregurgitation. The mitral valve is sclerotic, trace mitral regurgitation.Mitral annular calcification is present. Indeterminate pattern of LVdiastolic filling. The tricuspid valve is normal in structure, tracetricuspid regurgitation. The pulmonic valve is not well visualized. Nopulmonary regurgitation. Masses, Effusion, Shunts There is no pericardial effusion. The inferior vena cava is normal sized,respiratory size variation greater than 50%. No left to right shunting wasdetected by limited color flow Doppler interrogation of the interatrialseptum. MEASUREMENTS AND CALCULATIONS 2-D Measurements and LV Function: LVID (d) 5.4 cm LV FS% (2D) 29% LVID (s) 3.8 cm LVOT diameter2.1 cm IVS (d) 0.9 cm HR 90bpm LVPW (d) 1.1 cm LA Vol index 19ml/m2 Ao Sinus 3.0 cm RA Vol index 12ml/m2 Ao Sinus ULN 3.7 cm * RA area 12cm Asc Ao 3.9 cm RV Basal Diam2.4 cm Asc Ao ULN 4.0 cm * LA 4.0 cm * Input age outside of range, reported values correspond to Age = 81 Diastology: Mitral Tissue Doppler E Peak 0.9 m/s e', Septum 0.05 m/s DT 182 msec e', Lateral 0.07 m/s E/e' Average 15.76 Aortic Valve: Vmax 1.2 m/s JAKCELINE (V) 3.08 cm VTI 0.25 m JACKELINE (I) 2.19 cm LVOT V max 1.1 m/s Max PG 6 mmHg LVOT VTI 0.16 m Mean PG 4 mmHg SV 55 ml Dim Index 0.65 SV index 31 ml/m CO 4.9 l/min CI 2.8 l/min/m Mitral Valve: MVA 4.2 cm MV P 1/2 53 msec Tricuspid Valve and estimated PA pressures: TAPSE 2.0 cm Pulmonic Valve: PV AT 78 msec . This study was interpreted by an [facility] accredited facility. CC: Med/Surg - IP [facility], [facility] (med [facility]) [facility]. Final Radha Godfrey MD ECHO ORD Final Result * SCAN-MRI INTERPRETATION (07/21/2024 12:00 AM CDT) Anatomical Region Laterality Modality Other us Scanner OTHER Final Result * SCAN-CT INTERPRETATION (07/21/2024 12:00 AM CDT) Only the most recent of3 resultswithin the time period is included. Anatomical Region Laterality Modality Other us Scanner OTHER Final Result * SCAN-RADIOLOGY REPORT (07/20/2024 12:00 AM CDT) Anatomical Region Laterality Modality Other us Scanner [...] OfficeVisit or Surgical procedure from this date. us Cindy Henry DO DEXA Final Resul t from Last 3 Months or Most Recently Relevant to Health Maintenance Insurance [employer] MR Advance Directives * Full Code [...] 6:02 AM 02/12/2011 2:24 PM Care Teams Brim Blocker Relationship Specialty Start Date End Date Cindy Henry DO [address] [place] [address] PCP - General Family Practice 12/08/22 Cuco Sandoval MD [address] [place] [id number] Oncology Hematology and Oncology 08/20/12 Curtis Liu Ophthalmology Pipe Puller 08/20/12 Evy Renteria MD Ophthalmology Ophthalmology Surgery 08/20/12
--- NOTE | 2024-08-11 14:03 | ED.GENADULT ---
HPI - General Adult General Chief complaint: Neuro Symptoms/Altered Deficit Stated complaint: Hypotension Time Seen by Provider: 08/11/24 13:23 History of Present Illness HPI narrative: 83-year-old female brought to the ER today by EMS from home. History is obtained partly from EMS providers. They report she was called because she had an episode where she was having trouble speaking. When they arrived she had somewhat low blood pressure. Blood sugar was normal. They report that were not able to measure blood pressure from her right arm (unclear why? ). History from the patient is that she is and lives at home with her . He does have some form of memory loss. He has a home visiting nurse. The nurse was with them today. Sometime just prior to arrival she had an episode where she was standing at the kitchen sink and then she could not talk. It sounds like she was aphasic for about a minute or 2 and then symptoms resolved. As far she know she had no other symptoms. No headache. No arm numbness or weakness. No leg notes some numbness or weakness. She did not fall. No antecedent symptoms. No other episodes of neurologic difficulty. She was recently diagnosed with AFib in is on a blood thinner (turns out, Eliquis) for stroke prophylaxis. She apparently saw armhole baster hand at the [facility] clinic at [place] a couple of weeks ago but does not really remember what the armhole baster hand told her. She also has a history of heart failure and is apparently on diuretics for that. She does know the name of that meds. She says that she has chronic bilateral lower extremity swelling. She has been on diuretic lately but has not noted any change in the swelling either better or worse. She does have some shortness of breath. Unclear if she was having shortness of breath this morning when she could not talk. She does not think so. No recent chest pains. Past medical record according to her [facility] clinic EMR includes Hypertension , hypotension Bradycardia Orthostatic hypotension PSVT AFib Heart failure with reduced ejection fraction TIA Innominate artery stenosis Atherosclerosis of artery in her lower extremity Coronary artery disease Onychomycosis Hyperlipidemia Type 2 diabetes Allergic rhinitis History of left breast cancer and partial mastectomy Left toe amputation Depression Emphysema Falls Medication list includes Acetaminophen Bupropion Duloxetine Jardiance Rosuvastatin Torsemide 5 mg daily Carvedilol 12.5 mg daily Eliquis 5 mg b.i.d. Entresto 24-26 Spironolactone 25 mg daily Fluticasone Per medical record she had a cardiology visit on 07/29/[address] Hodge. Rach Fields is a 83 y.o. female with heart failure with reduced ejection fraction, atrial fibrillation, nonobstructive coronary disease, hypertension, dyslipidemia, peripheral arterial disease, TIA, type 2 diabetes among other chronic medical conditions. ? Patient was seen by cardiology in 2021 for mildly reduced LVEF and positive nuclear stress test. She underwent coronary angiography which demonstrated moderate, nonobstructive disease of the LCx and RCA (normal iFR in both arteries). She was hospitalized in [place] in July 2024 with CHF exacerbation. Echocardiogram with moderately reduced LVEF. Also noted to have newly diagnosed atrial fibrillation. She was diuresed and placed on GDMT and outpatient cardiology consult TTE 07/2024 1. LVEF estimate 30-35%. Normal LV size and wall thickness. 2. Preserved RV function. 3. No significant valvular abnormalities. 4. Normal RAP estimate. 5. No pericardial effusion. ? Angiogram 05/2021 PRESENTATION / INDICATIONS * Increasing dyspnea, known cardiomyopathy, abnormal perfusion study with anterior ischemia, known occluded right brachiocephalic artery, moderate left subclavian artery. DIAGNOSTIC - CORONARY * Calcified coronary arteries. * The left main artery has minimal disease. * The LAD has mild diffuse disease. * The circumflex artery has moderate disease. * The RCA is dominant with at least moderate proximal disease. HEMODYNAMICS * The LVEDP is severely elevated VASCULAR ACCESS * Using ultrasound guidance and a percutaneous technique, the right common femoral artery was accessed. Ultrasound was used to confirm vessel patency, localizing needle into the lumen of the vessel. An image was saved for the medical record. DIAGNOSTIC - VASCULAR * Diffuse moderate right common femoral artery disease. INTERVENTION The iFR across the mid circumflex was 0.99 (not hemodynamically significant). The iFR across the proximal and mid RCA was 0.96 (not hemodynamically significant). RECOMMENDATIONS & PLAN * Optimize risk factors and medications, blood pressure control. HFrEF (heart failure with reduced ejection fraction) (HC) Recent hospitalization at [place] earlier this month for acute on chronic heart failure exacerbation. Etiology not entirely certain. Possibly due to atrial fibrillation which is a new diagnosis for her. She had nonobstructive CAD on angiogram in 2021. She was placed on very good medical therapy and diuresed. She appears close to euvolemic today. [place] [employer] class II-III symptomatology. ? Continue carvedilol 12.5 mg twice daily, Entresto 24-26 mg twice daily, Jardiance 10 mg daily, spironolactone 25 mg daily, and torsemide as needed for maintenance of volume. ? Due to the question of atrial fibrillation contributing to her reduction in LVEF, we will arrange for cardioversion. She has been on Eliquis for 1 week so we will plan for about 3 weeks to avoid KASHMIR. ? Will repeat limited echocardiogram following cardioversion and medical therapy in approximately 3 months time. If LVEF remains significantly reduced, may need reevaluation of coronary artery disease either with angiogram or stress test. ? Atrial fibrillation, unspecified type (HC) Chronic anticoagulation Apparently developed atrial fibrillation during her hospital stay. As above, will attempt cardioversion. She is on Eliquis 5 mg twice daily and her rates are seemingly fairly well-controlled on carvedilol 12.5 mg twice daily. ? If clear symptom improvement and improvement in LVEF in sinus rhythm, will need to be aggressive at rhythm control strategy. ? Coronary artery disease Nonobstructive coronary disease based on angiogram in 2021. Normal IFR of the RCA and circumflex. Continue rosuvastatin 10 mg daily for prevention purposes. No signs/symptoms of angina but LVEF reduced as above. ? HTN (hypertension) Blood pressure actually on the low side now. Occasional orthostatic symptoms. However, we will continue current medications as she is on very good GDMT. ? Mixed hyperlipidemia Continue statin as above. Related Data Home Medications ?Medication ?Instructions ?Recorded ?Confirmed duloxetine 30 mg capsule,delayed 30 mg PO DAILY 07/13/24 08/11/24 release rosuvastatin 10 mg tablet 10 mg PO HS 07/13/24 08/11/24 bupropion HCl 150 mg 24 hr tablet, 150 mg PO QAM 07/21/24 08/11/24 extended release carvedilol 12.5 mg tablet 12.5 mg PO BID 08/11/24 08/11/24 empagliflozin 10 mg tablet 10 mg PO DAILY 08/11/24 08/11/24 (Jardiance) torsemide 5 mg tablet 5 mg PO DAILY PRN 08/11/24 08/11/24 Previous Rx's ?Medication ?Instructions ?Recorded apixaban 5 mg tablet 5 mg PO BID #60 tabs 07/23/24 sacubitril 24 mg-valsartan 26 mg 1 tab PO BID #60 tabs 07/23/24 tablet (Entresto) spironolactone 25 mg tablet 12.5 mg (1/2 x 25 mg) PO DAILY #30 07/23/24 tabs Allergies Allergy/AdvReac Type Severity Reaction Status Date / Time No Known Drug Allergies Allergy Verified 08/11/24 15:20 [facility] Medical History (Updated 08/11/24 @ 19:08 by Giancarlo Latham MD) History of TIAs ?Z86.73 - Personal history of transient ischemic attack (TIA), and cerebral infarction without residual deficits (ICD-10) Social History What is your current living situation?: I presently have a place to live Problems where you live: no known problems Problems where you live details: n/a In the past 12 months, utilities in danger of being shut off: no In past 12 months, lack of transportation kept you from medical appts, meetings, work, or getting things needed for daily living: no In the past 12 mos, have been you worried that your food would run out before you had money to buy more?: never true In the past 12 mos, the food you bought just didn't last and you didn't have money to buy more?: never true Smoking Status: Former smoker What tobacco products do you use: cigarettes Smoking quit date/years: >15 years ago Do you use any of these nicotine containing products: None Second hand tobacco smoke exposure: No How often do you have a drink containing alcohol: 2-4 times a month How many standard drinks containing alcohol do you have on a typical day: 1 or 2 How often do you have six or more drinks on one occasion: Never AUDIT-C Alcohol total score: 2 Non-prescribed substance use: denies use How often does anyone, including family, friends and others, physically hurt you: never How often does anyone, including family, friends and others, insult or talk down to you: never How often does anyone, including family, friends and others, threaten you with harm: never How often does anyone, including family, friends and others, scream or curse at you: never service: No Exam Narrative: Exam Narrative: Constitutional: Appears well-developed and well-nourished. Alert. Conversant. Non toxic. HENT: Head: Atraumatic. Nose: Nose normal. Mouth/Throat: Oral mucosa is clear and moist. no trismus. Pharynx normal. Tonsils symmetric. No tonsillar enlargement, erythema, or exudate. Eyes: Conjunctivae normal. EOM normal. Pupils equal, round, and reactive to light. No scleral icterus. Neck: Normal range of motion. Neck supple. No tracheal deviation present. No JVD Cardiovascular: Normal rate, irregularly irregular rhythm. No gallop. No friction rub. No murmur heard. Symmetric radial artery pulses Pulmonary/Chest: Effort normal. No stridor. No respiratory distress. No wheezes. Bibasilar rales. No rhonchi . No tenderness. Abdominal: Soft. Bowel sounds normal. No distension. No mass. No tenderness. No rebound. No guarding. Musculoskeletal: RUE: Normal range of motion. No tenderness. No deformity LUE: Normal range of motion. No tenderness. No deformity RLE: Normal range of motion. 2+ edema. No tenderness. No deformity LLE: Normal range of motion. 2+ edema. No tenderness. No deformity Lymph: No cervical adenopathy. Neurological: Mental status normal. Attention normal. Alert and oriented x3. GCS 15. Memory normal. Speech fluent. Cognition normal. Cranial Nerves intact II-XII except I did not formally test gag or visual acuity. EOMI. Palate elevates symmetrically and tongue protrudes in the midline. Strength: 5/5 trapezius on the right and left 5/5 deltoid on the right and left 5/5 biceps on the right and left 5/5 triceps on the right and left 5/5 hydrodynamics professor on the right and left 5/5 thumb opposition on the right and left 5/5 finger abduction on the right and left 5/5 hip flexors (L3) on the right and left 5/5 quadriceps (L4) on the right and left 5/5 tibialis anterior on the right and left 5/5 EHL (L5) on the right and left 5/5 gastrocnemius (S1) on the right and left 5/5 hamstring on the right and left Sensation intact to light touch in both upper extremities (C4-T1) Sensation intact to light touch in Both lower extremities (L4-S1). Finger to nose and coordination normal. Gait normal. Skin: Skin is warm and dry. No rash noted. No pallor. Normal capillary refill. Psychiatric: Normal mood. Normal affect. Const: Vital Signs, click to edit/add: Vital Signs - 24 hr 08/11/24 13:29 08/11/24 13:31 08/11/24 14:01 Temperature 97.3 F L Pulse Rate 70 81 Pulse Rate [Pulse Oximeter] 75 Respiratory Rate 20 20 19 Blood Pressure 106/66 120/67 Blood Pressure [Le ft Upper Arm] 112/82 Pulse Oximetry 95 93 93 Oxygen Delivery Me thod Room Air 08/11/24 14:16 08/11/24 14:31 08/11/24 16:01 Temperature Pulse Rate 71 80 73 Pulse Rate [Pulse Oximeter] Respiratory Rate 19 20 22 Blood Pressure 117/82 104/58 L 129/88 Blood Pressure [Le ft Upper Arm] Pulse Oximetry 93 97 93 Oxygen Delivery Me thod 08/11/24 16:13 08/11/24 19:19 08/11/24 19:34 Temperature 96.4 F L 96.8 F L Pulse Rate 74 Pulse Rate [Pulse Oximeter] 66 84 Respiratory Rate 18 22 18 Blood Pressure 102/79 Blood Pressure [Le ft Upper Arm] 129/88 102/79 Pulse Oximetry 93 96 Oxygen Delivery Me thod Room Air 08/11/24 21:17 08/11/24 21:18 08/11/24 21:32 Temperature 97.1 F L Pulse Rate 74 86 Pulse Rate [Pulse Oximeter] 80 Respiratory Rate 18 18 24 Blood Pressure 115/74 120/74 Blood Pressure [Le ft Upper Arm] 115/74 Pulse Oximetry 93 94 93 Oxygen Delivery Me thod Room Air 08/11/24 22:05 08/11/24 22:42 08/11/24 22:50 Temperature 97.6 F Pulse Rate 81 71 Pulse Rate [Pulse Oximeter] 82 Respiratory Rate 23 18 18 Blood Pressure 116/88 123/88 Blood Pressure [Le ft Upper Arm] 123/88 Pulse Oximetry 94 95 93 Oxygen Delivery Me thod 08/11/24 22:59 08/11/24 23:02 Temperature 98.0 F Pulse Rate 86 Pulse Rate [Pulse Oximeter] Respiratory Rate 22 Blood Pressure 125/75 Blood Pressure [Le ft Upper Arm] Pulse Oximetry 93 95 Oxygen Delivery Me thod Course Course ED Course: History and physical performed in ER bed 5. She was neurologically intact. No ongoing symptoms. History is highly suspicious for TIA Patient sent for CT of her head and CT angio of her head and neck. Reevaluation(s) Reevaluation #1: Initial head CT is normal. Phone consult with Stroke Neurology from [facility], Dr. Lopez. We reviewed the patient's symptoms and suspicions for TIA. Initial likely source for the TIA would be possible cardioembolic event. It sounds like she has only recently been diagnosed with AFib and has only been on her Eliquis for a couple of weeks. Dr. Fuchs requests that we get a brain MRI and call back with those results of at and follow-up when CT angio results are back. Recheck-CT angio result came back showing multiple vessel disease. She has chronic previously known innominate artery stenosis. Under CT angio of her neck she has significant stenosis at the origin as well as distally in the right common carotid and also in the left common carotid. MRI came back showing no acute completed infarct. Discussed again with Dr. Lopez from Stroke Neurology. Based on the patient's significant carotid arterial sclerotic disease, she would recommend transferred [facility] for consultation with vascular surgery to see if she would be a candidate for stenting or surgery. Discussed with the [facility] transfer center. There are no open beds at any of the [facility] currently. They will place the patient on a wait list. Transfer center requested that I speak to the on-call vascular surgeon. Discussed with Dr. Daniels. We reviewed the patient's presenting TIA, history of AFib, current Eliquis use. We also reviewed the patient's CTA findings. He says that she does not need immediate (meaning emergent) surgery tonight but would benefit from transfer to [facility] for consultation and may need urgent surgery tomorrow. He recommends that we continue Eliquis and aspirin. Hold off on dual anti-platelet therapy for now. Patient remains on the wait list. Discussed with my oncoming partner, Dr. Godfrey. She will oversee the patient's care until patient can be transferred to an [facility] facility. Vital Signs Vital signs: Initial Vital Signs Temperature 97.3 F L 08/11/24 13:29 Temperature Source Temporal Artery Scan 08/11/24 13:29 Pulse Rate 75 08/11/24 13:29 Respiratory Rate 20 08/11/24 13:29 Blood Pressure 112/82 08/11/24 13:29 Blood Pressure Mean 92 08/11/24 13:29 Pulse Oximetry 95 08/11/24 13:29 Oxygen Delivery Method Room Air 08/11/24 13:29 Vital Signs Temperature 97.3 F L 08/11/24 13:29 Pulse Rate 75 08/11/24 13:29 Respiratory Rate 20 08/11/24 13:29 Blood Pressure 112/82 08/11/24 13:29 Pulse Oximetry 95 08/11/24 13:29 Oxygen Delivery Method Room Air 08/11/24 13:29 Temperature 98.0 F 08/11/24 23:02 Pulse Rate 86 08/11/24 23:02 Respiratory Rate 22 08/11/24 23:02 Blood Pressure 125/75 08/11/24 23:02 Pulse Oximetry 95 08/11/24 23:02 Oxygen Delivery Method Room Air 08/11/24 21:18 Medical Decision Making MDM Narrative Medical decision making narrative: 83-year-old female presenting to the ER today by EMS from home after she had an episode of what sounds like expressive aphasia that lasted a couple of minutes. 1. Neuro Presentation is suspicious for probable TIA. Upon arrival in the ER she is having no ongoing focal neurologic deficits suggest active stroke. TIA workup was undertaken. Head CT is negative for bleed. She does have a history of AFib and that is confirmed on her EKG today. She is rate controlled. Blood pressure is normal. She is currently anticoagulated on Eliquis (and has been taking it as demonstrated slightly abnormal INR) but was only started a couple of weeks ago. Initial concern is for potential embolic TIA from a left atrial thrombus. Discussed with stroke neurology from [facility], Dr. Lopez. She would recommend since the patient was just started on anticoagulation a couple of weeks ago, there likely is a small atrial thrombus and no change in management is indicated other than keeping the patient on Eliquis and would doing workup for other causes of TIA. 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 Also severe narrowing of the right cervical carotid in particular at the carotid bulb. Also severe atherosclerotic narrowing versus occlusion of the left common carotid artery at the origin and severe atherosclerotic narrowing of the distal left common carotid artery. Also probably severe atherosclerotic narrowing of the left vertebral artery. CT angiogram of her head shows diminished as opacification of the right internal carotid artery but no other major intracranial lesions. MRI of her brain shows no acute infarct. Discussed these findings with Stroke Neurology, Dr. Lopez. She recommends that we continue Eliquis for now and that given the significant vascular abnormalities transferred [facility] for vascular surgery consultation to see if she would be a candidate for stenting or end arterectomy. Also discussed with Dr. Zayas, vascular surgery who agrees that consultation is warranted. At this point she has not yet accepted by the hospitalists at the receiving facility because there was no available bed. She is on the wait list. She will unfortunately have to board here in the ER until a bed opens up. 2. Cardiac. Patient does have a recent diagnosis of AFib in his in rate controlled AFib on her monitor here. She also has a recent diagnosis of CHF. Chest x-ray does show ongoing signs of pulmonary edema similar compared to prior. And terminal proBNP is abnormal at 5060. This is actually slightly lower than when she was hospitalized on . No definite ischemia on her EKG and troponin is normal. No chest pain. Blood pressure is normal at about 112/80-1 30/90. Oxygen sats are little bit difficult to measure because of her AFib but seemed to be in the low 90s on room air. Chest x-ray shows signs of failure S similar to prior. She is not hypoxic. Overall BNP is slightly trending down. We ordered her home dose of diuretic. She does have rate controlled AFib. No RVR. Lab Data Labs: Lab Results 08/11/24 Range/Units 14:27 WBC 6.56 (4.50-11.00) K/uL RBC 4.80 (4.00-5.20) m/uL Hgb 14.1 (12.0-16.0) gm/dL Hct 44.4 (33.0-51.0) % MCV 93 (80-100) fL MCH 29 (26-34) pg MCHC 32 (32-36) gm/dL RDW Coeff of Leonardo 14.7 (11.5-15.5) % Plt Count 170 (140-440) K/uL Neut % (Auto) 66.1 (42.0-72.0) % Lymph % (Auto) 25.0 (20-44) % [place] % (Auto) 7.0 (0.0-11.0) % Eos % (Auto) 1.4 (0.0-7.0) % Baso % (Auto) 0.3 (0.0-3.0) % Neut # (Auto) 4.34 (1.7-7.0) K/uL Lymph # (Auto) 1.64 (0.90-2.90) K/uL [place] # (Auto) 0.50 (0.00-0.90) K/UL Eos # (Auto) 0.09 (0.00-0.50) K/uL Baso # (Auto) 0.02 (0.00-0.30) K/uL Abs Immat Gran (auto) 0.01 (0.00-0.30) K/uL Imm/Tot Granulo (auto) 0.2 % INR 1.39 H (0.91-1.10) Sodium 139 (135-149) mmol/L Potassium 4.7 (3.6-5.1) mmol/L Chloride 105 (96-114) mmol/L Carbon Dioxide 26 (20-32) mmol/L Anion Gap 8 (7-15) mEq/L BUN 20 (7-30) mg/dL Creatinine 0.9 (0.5-1.5) mg/dL Estimated GFR 64 ml/min Glucose 91 (60-115) mg/dL Lactate 1.4 (0.5-1.9) mmol/L Calcium 9.2 (8.4-10.6) mg/dL Troponin I 0.02 (0.01-0.04) ng/mL NT-Pro-B Natriuret Pep 5060 H (See Note) pg/mL Imaging Data MR Brain: Attestation: I have reviewed the pertinent imaging results. Radiologist's impression: IMPRESSION: 1. No acute infarction or other acute intracranial pathology. 2. Advanced chronic microvascular ischemic/senescent changes, multiple small deep jimenez nuclei lacunar infarcts as well as moderately advanced generalized parenchymal volume loss. CT scan - head: Attestation: I have reviewed the pertinent imaging results. Radiologist's impression: IMPRESSION: 1. No acute intracranial noncontrast CT findings. 2. Moderate to severe hypoattenuating changes in the white matter which are nonspecific, but commonly attributable to chronic microangiopathic change. 3. A 7 millimeter mostly calcified extra-axial mass is similar since at least as far back as 04/10/2020, most likely a meningioma. CTA Head and Neck: Attestation: I have reviewed the pertinent imaging results. 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 Relatively asymmetrically diminished contrast opacification in the right cervical vertebral and carotid arteries which limits evaluation. Severe narrowing of the right cervical carotid artery most conspicuous at the carotid bulb. Severe atherosclerotic narrowing versus occlusion of the left common carotid artery at the origin. Severe atherosclerotic narrowing of the distal left common carotid artery. Probably severe atherosclerotic narrowing at the left vertebral artery origin which is difficult to clearly visualize due to adjacent streak artifact. Cranial: Relatively asymmetrically diminished contrast opacification in the right internal carotid artery somewhat limits evaluation. There are atherosclerotic vascular changes without evidence of high-grade large vessel narrowing. No large vessel occlusion. Additional: Small viaob-[id number]-left pleural effusions. Severe emphysematous change in the lungs. Enlarged thyroid gland. Chest x-ray: Attestation: I have reviewed the pertinent imaging results. Radiologist's impression: Impression: Persistent pulmonary edema with basilar pleural effusions with adjacent compressive atelectasis versus infiltrates. ECG Data Attestation: I personally reviewed and interpreted this ECG as follows: Interpretation: Atrial fibrillation] Rate: 78 NV: Not applicable QRS axis: Right superior axis deviation possible left bundle branch block pattern. ST segment/T wave: No ST segment elevation or depression. QTc: 535 Discharge Plan Discharge Clinical Impression: Brain TIA, Carotid artery stenosis, Atrial fibrillation, CHF (congestive heart failure) Patient Disposition: Xfer [facility] Prescriptions: No Action duloxetine 30 mg capsule,delayed release(DR/EC) 30 mg PO DAILY rosuvastatin 10 mg tablet 10 mg PO HS bupropion HCl 150 mg tablet extended release 24 hr 150 mg PO QAM spironolactone 25 mg Tablet 12.5 mg PO DAILY Qty: 30 0RF Entresto 24-26 mg Tablet 1 tab PO BID Qty: 60 0RF apixaban 5 mg tablet 5 mg PO BID Qty: 60 2RF carvedilol 12.5 mg tablet 12.5 mg PO BID Jardiance 10 mg Tablet 10 mg PO DAILY torsemide 5 mg tablet 5 mg PO DAILY PRN Stand Alone Forms: [facility] Info Instructions
--- NOTE | 2024-08-11 14:05 | CRLHL7_ITS ---
For Patients: As a result of the Century Cures Act, medical imaging exams and procedure reports are released immediately into your electronic medical record. You may view this report before your referring provider. If you have questions, please contact your health care provider. INDICATION: Temporary aphasia. Suspected TIA. COMPARISON: 07/21/2024 brain MRI TECHNIQUE: CT of the head without contrast. FINDINGS: Brain, ventricles, and extra-axial spaces: No acute intracranial hemorrhage. Ojeda-white differentiation is grossly preserved. Moderate to severe hypoattenuating changes in the white matter which are nonspecific, but commonly attributable to chronic microangiopathic change. Mild brain parenchymal volume loss with commensurate size of the ventricles and sulci. A mostly calcified 7 millimeter hyperattenuating extra-axial mass at the junction of the left anterior temporal pole and the anterior cranial fossa is similar since at least as far back as 04/10/2020 CT head, most likely a meningioma (09/03). There are intracranial vascular calcifications. Bones: No acute osseous findings. Visualized paranasal sinuses are clear. Visualized mastoid air cells are clear. Additional findings: Status post bilateral lens replacement. IMPRESSION: 1. No acute intracranial noncontrast CT findings. 2. Moderate to severe hypoattenuating changes in the white matter which are nonspecific, but commonly attributable to chronic microangiopathic change. 3. A 7 millimeter mostly calcified extra-axial mass is similar since at least as far back as 04/10/2020, most likely a meningioma. Please note that all CT scans at this facility use dose modulation, iterative reconstruction, and/or weight-based dosing when appropriate to reduce radiation dose to as low as reasonably achievable. Dictated by Hang Ibanez MD @ 08/11/2024 4:03:21 PM (Electronically Signed)
--- NOTE | 2024-08-11 14:06 | CRLHL7_ITS ---
For Patients: As a result of the Century Cures Act, medical imaging exams and procedure reports are released immediately into your electronic medical record. You may view this report before your referring provider. If you have questions, please contact your health care provider. INDICATION: Acute stroke. TECHNIQUE: CTA head with contrast bolus tracking, 3D angiographic rendering using maximum intensity projection (MIP) and images permanently archived. FINDINGS: There is scattered intracranial atherosclerotic disease. There is reduced opacification of the right internal carotid artery due to a proximal flow limiting lesion. There is no intracranial large vessel occlusion. No aneurysm is identified. IMPRESSION: Reduced opacification of the right ICA due to proximal flow limitation; please see CTA neck report. Please note that all CT scans at this facility use dose modulation, iterative reconstruction, and/or weight-based dosing when appropriate to reduce radiation dose to as low as reasonably achievable. Dictated by Dalton Horton MD @ 08/12/2024 7:41:41 AM (Electronically Signed)
--- NOTE | 2024-08-11 14:06 | CRLHL7_ITS ---
For Patients: As a result of the Century Cures Act, medical imaging exams and procedure reports are released immediately into your electronic medical record. You may view this report before your referring provider. If you have questions, please contact your health care provider. INDICATION: Acute stroke. TECHNIQUE: CTA neck with contrast bolus tracking, 3D angiographic rendering using maximum intensity projection (MIP) and images permanently archived. 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 There is atherosclerotic plaque in the proximal right ICA resulting in a severe stenosis, 90% by NASCET. It is likely that both the right carotid artery and the right vertebral artery fill in a retrograde fashion. There is a severe left common carotid artery origin stenosis/near occlusion. There is a severe distal left common carotid artery stenosis below the bifurcation, 70-80%. There is atherosclerotic plaque in the proximal left ICA resulting in a moderate stenosis, 60% by NASCET. There is a severe proximal left subclavian artery stenosis. There is a severe left vertebral artery origin stenosis. The thyroid is enlarged. The cervical spine is in normal alignment. Degenerative changes are noted in the cervical spine. Emphysema is present in the visualized lungs. There are bilateral pleural effusions. IMPRESSION: 1. 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 2. Severe left common carotid artery origin stenosis/near occlusion with additional downstream stenoses described above. 3. 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 Please note that all CT scans at this facility use dose modulation, iterative reconstruction, and/or weight-based dosing when appropriate to reduce radiation dose to as low as reasonably achievable. Dictated by Dalton Horton MD @ 08/12/2024 7:53:19 AM (Electronically Signed)
--- NOTE | 2024-08-11 14:07 | CRLHL7_ITS ---
For Patients: As a result of the Cures Act, medical imaging exams and procedure reports are released immediately into your electronic medical record. You may view this report before your referring provider. If you have questions, please contact your health care provider. Indication: Dyspnea bibasilar rales Comparison: Two views ribs July 20, 2024 Technique: PA and lateral views of the chest Findings: There are persistent increased interstitial markings commensurate with pulmonary edema with small basilar pleural effusions with adjacent compressive atelectasis. There is no pneumothorax. The cardiac silhouette is stably enlarged. Minimal healing of previously seen right lower lobe rib fractures. Impression: Persistent pulmonary edema with basilar pleural effusions with adjacent compressive atelectasis versus infiltrates. Dictated by Kannan Mcduffie MD @ 08/11/2024 4:25:28 PM (Electronically Signed)
[2024-08-11 14:32] LABS: Lactate* 1.4 mmol/L (0.5-1.9)
[2024-08-11 14:34] LABS: Basophils Absolute Auto 0.02 K/uL (0.00-0.30); Basophils Percent Auto 0.3 % (0.0-3.0); Eosinophils Absolute Auto 0.09 K/uL (0.00-0.50); Eosinophils Percent Auto 1.4 % (0.0-7.0); Hematocrit 44.4 % (33.0-51.0); Hemoglobin* 14.1 gm/dL (12.0-16.0); Immature Granulocytes Abs Auto 0.01 K/uL (0.00-0.30); Immature Granulocytes Pct Auto 0.2 %; Lymphocytes Absolute Auto 1.64 K/uL (0.90-2.90); Mean Corpuscular HGB Conc 32 gm/dL (32-36); Mean Corpuscular Hemoglobin 29 pg (26-34); Mean Corpuscular Volume 93 fL (80-100); Neutrophils Absolute Auto 4.34 K/uL (1.7-7.0); Neutrophils Percent Auto 66.1 % (42.0-72.0); Platelet Count* 170 K/uL (140-440); RDW Coefficient of Variation % 14.7 % (11.5-15.5); White Blood Count* 6.56 K/uL (4.50-11.00)
[2024-08-11 14:35] LABS: Slide Review Reflex No
[2024-08-11 14:52] LABS: INR 1.39 (0.91-1.10)
[2024-08-11 16:15] LABS: Chloride* 105 mmol/L (96-114); Potassium* 4.7 mmol/L (3.6-5.1); Sodium* 139 mmol/L (135-149)
[2024-08-11 16:18] LABS: Anion Gap 8 mEq/L (7-15); Blood Urea Nitrogen* 20 mg/dL (7-30); Calcium* 9.2 mg/dL (8.4-10.6); Carbon Dioxide* 26 mmol/L (20-32); Creatinine* 0.9 mg/dL (0.5-1.5); Estimated Glomerular Filt Rate 64 ml/min; Glucose* 91 mg/dL (60-115)
[2024-08-11 16:30] LABS: Troponin I* 0.02 ng/mL (0.01-0.04)
[2024-08-11 16:31] LABS: NT Pro B Type NatriureticPept* 5060 pg/mL (See Note)
--- NOTE | 2024-08-11 16:34 | CRLHL7_ITS ---
For Patients: As a result of the Century Cures Act, medical imaging exams and procedure reports are released immediately into your electronic medical record. You may view this report before your referring provider. If you have questions, please contact your health care provider. INDICATION: Aphasia. TECHNIQUE: Brain MRI without contrast. COMPARISON: Brain MRI from 07/21/2024. FINDINGS: No evidence of acute ischemia. No evidence of acute or chronic intracranial blood products. Patchy and confluent FLAIR hyperintensity throughout the supratentorial white matter, typical for chronic microvascular ischemic change. Multiple chronic lacunar infarcts within the basal ganglia/thalami. Moderately advanced generalized parenchymal volume loss. No mass effect or herniation. No hydrocephalus or extra-axial collections. Partially empty sella. Parasellar structures and optic chiasm are normal. All the major intracranial vascular structures demonstrate normal flow-related signal. The orbital contents are normal. A T1 hypointense/T2 hyperintense lesion within the left sided calvarium, likely a hemangioma. No obstructive sinus disease. No extracranial soft tissue findings. IMPRESSION: 1. No acute infarction or other acute intracranial pathology. 2. Advanced chronic microvascular ischemic/senescent changes, multiple small deep jimenez nuclei lacunar infarcts as well as moderately advanced generalized parenchymal volume loss. Dictated by Olu Telles MD @ 08/11/2024 5:55:27 PM (Electronically Signed)
[2024-08-11] MEDS: DULOXETINE 30 MG CAPSULE DR PO (23:33)
[2024-08-11] MEDS: ASPIRIN 81 MG TAB.CHEW PO ×3 (23:33→23:40)
[2024-08-11] MEDS: ROSUVASTATIN CALCIUM 10 MG TABLET PO ×3 (23:33→23:41)
[2024-08-11] MEDS: APIXABAN 5 MG TABLET PO (23:33)
[2024-08-11] MEDS: SACUBITRIL 24 mg/VALSARTAN 26 mg TABLET 1 TAB PO (23:33)
[2024-08-11] MEDS: carvediloL 6.25 MG TABLET 12.5 MG PO (23:34)
[2024-08-12] VITALS (55 sets, daily range): BP systolic 93–149; BP diastolic 54–95; PULSE 74–102; RESP 12–36; TEMP 36.8; O2SAT 87–97
== END 2024-08-12 15:45 | disposition short-term general hospital (02) ==
PROVIDERS: Emergency Provider Emergency Medicine; PCP Family Medicine
DX: G45.9 Transient cerebral ischemic attack, unspecified (principal); R06.02 Shortness of breath; I50.9 Heart failure, unspecified; R60.9 Edema, unspecified; I48.91 Unspecified atrial fibrillation; R47.01 Aphasia; Z87.891 Personal history of nicotine dependence; Z79.01 Long term (current) use of anticoagulants
CPT/HCPCS: 36415; 70450; 70496; 70498; 70551; 71046; 80048; 83605; 83880; 84484; 85025; 85610; 87040; 93005; 94761; 99285; A9270; Q9967

== ENCOUNTER 2024-08-12 15:42 | Outpatient (CLI) | payer MEDICARE, SELFPAY | END 2024-08-12 15:43 | disposition home or self-care (01) | PROVIDERS: PCP Family Medicine; Visit Provider Student in an Organized Health Care Education/Training Program | DX: I65.29 Occlusion and stenosis of unspecified carotid artery (principal); I48.91 Unspecified atrial fibrillation; I50.9 Heart failure, unspecified | CPT/HCPCS: A0425; A0427 ==